=== PATIENT | male | born 1955 | race African-American/Black ===

== ENCOUNTER 2016-06-22 01:35 | Inpatient (IN) | payer MEDICAID ==
[~2016-06-22] VITALS: Ht 172.7 cm; Wt 63.5 kg
[2016-06-22] VITALS (7 sets, daily range): BP systolic 103–138; BP diastolic 71–84
[~2016-06-22 01:35] MED LIST: NKM; RANITIDINE HCL150 MG ORAL
[2016-06-22] MEDS ORDERED: Famotidine 20 MG/ 2ML VIAL IVP ONE (03:30)
[2016-06-22 04:25] LABS: MEAN CORPUSCULAR HEMOGLOBIN 21.2 PG (27.0-31.0); MEAN CORPUSCULAR HGB CONC 31.2 G/DL (32.0-36.0); MEAN CORPUSCULAR VOLUME 68 FL (80-99); MEAN PLATELET VOLUME 6.5 FL (6.5-10.1); PLATELET COUNT 553 K/UL (150-450); RED BLOOD COUNT 2.43 M/UL (4.70-6.10); RED CELL DISTRIBUTION WIDTH 24.3 % (11.6-14.8); WHITE BLOOD COUNT 21.6 K/UL (4.8-10.8)
[2016-06-22 04:42] LABS: ALBUMIN/GLOBULIN RATIO 1.1 (1.0-2.7); CALCIUM 9.2 mg/dL (8.6-10.2); CREATININE 2.1 mg/dL (0.7-1.2); GLOMERULAR FILTRATION RATE 39.3 mL/min (>60); POTASSIUM 3.4 mEQ/L (3.4-4.9); TOTAL PROTEIN 7.3 g/dL (6.6-8.7)
[2016-06-22 05:04] LABS: TROPONIN I < 0.30 ng/mL (<=0.30)
[2016-06-22] MEDS ORDERED: Piperacillin/Tazobactam 3.375 GM in NS 110 ML IVPB ONE (05:30)
[2016-06-22 06:28] LABS: ANISOCYTOSIS 1+; BAND NEUTROPHILS % (MANUAL) 0 % (0-8); BASOPHILS % (MANUAL) 1 % (0-2); EOSINOPHILS % (MANUAL) 0 % (0-3); LYMPHOCYTES % (MANUAL) 8 % (20-45); NEUTROPHILS % (MANUAL) 87 % (45-75); PLATELET ESTIMATE ADEQUATE; PLATELET MORPHOLOGY NORMAL; POIKILOCYTOSIS 1+; TARGET CELLS 2+; TOTAL CELLS COUNTED 100
[2016-06-22] MEDS ORDERED: Morphine Sulfate 2mg/ml Inj IVP PRN (07:00)
[2016-06-22] MEDS ORDERED: Mylanta II UD 30ml ORAL PRN (07:00)
[2016-06-22] MEDS ORDERED: Nitroglycerin Subl 0.4mg tab (Bottle Of 25) SL PRN (07:00)
--- NOTE | 2016-06-22 08:42 | Emergency Room Report ---
History of Present Illness General Chief Complaint: Abdominal Pain Source: Patient Present Illness HPI Patient is a 87-year-old male who presented after increased epigastric burning sensation for 3 days. The patient had gradual onset of symptoms. The patient reported feeling generalized weakness. The patient had had not been having any hematemesis. Patient reports having prior blood transfusion. He states that he had been feeling generalized weakness the patient reported having severe burning sensation. He denies any vomiting or hematemesis at this time. He denied a black or bloody stools. Allergies: Coded Allergies: No Known Allergies (Unverified , 05/07/14) Patient History Past Medical History: see triage record Reviewed Nursing Documentation: PMH: Agreed, PSxH: Agreed Nursing Documentation-PMH Hx Gastrointestinal Problems: Yes - GERD Review of Systems All Other Systems: negative except mentioned in HPI Physical Exam Vital Signs Date Time Temp Pulse Resp B/P Pulse Ox O2 Delivery O2 Flow Rate FiO2 06/22/16 01:58 99.1 100 16 132/77 98 Room Air General Appearance: alert, GCS 15, moderate distress, Chronically Ill Eyes: bilateral eye conjunctivae pale ENT: normal pharynx Neck: full range of motion Respiratory: chest non-tender, lungs clear, normal breath sounds, rhonchi Cardiovascular #1: normal peripheral pulses, regular rate, rhythm Gastrointestinal: normal bowel sounds, non tender, soft, no mass Musculoskeletal: back normal, digits/nails normal Neurologic: alert, oriented x3, responsive, inside sales director III-XII nml as tested Psychiatric: normal inspection, judgement/insight normal Skin: pallor Medical Decision Making Diagnostic Impression: Primary Impression: Severe anemia Additional Impressions: Sepsis Leukocytosis Prostate hypertrophy Renal insufficiency ER Course Patient presented for generalized weakness.Patient presented for generalized weakness. Differential diagnosis included was not limited to anemia, urinary tract infection, electrolyte abnormality, hypothyroidism, myocardial infarction , myasthenia gravis, dehydration, among others. Because of complexity of patient's case laboratory testing and imaging studies were ordered. The EKG interpreted by me showed normal sinus rhythm with a rate of [address] there were no acute ST or T wave changes noted the patient was noted to have septal Q waves. The QT interval was prolonged QTC was 484. The patient was noted to have a markedly anemia with initial hemoglobin of 5.2. The patient noted have white blood count of 21,000. A urinalysis was ordered. CT of the abdomen pelvis read by radiology showed marked thickening of the visualized esophagus stomach was distended with fluid. The contrast was not used due to the patient' s elevated creatinine prostate was mildly enlarged there severe degenerative changes in bilateral hip joints there is scarring in both lungs. 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 The patient was consented for blood. The patient was discussed with O physician and patient is unstable for transfer at this time. Dr. Kessler was contacted for inpatient management due to complexity of medical condition. The patient was given IV Pepcid and GI cocktail. Laboratory Tests Test 06/22/16 04:12 06/22/16 05:39 White Blood Count 21.6 K/UL (4.8-10.8) H Red Blood Count 2.43 M/UL (4.70-6.10) L Hemoglobin 5.2 G/DL (14.2-18.0) *L Hematocrit 16.5 % (42.0-52.0) L Mean Corpuscular Volume 68 FL (80-99) L Mean Corpuscular Hemoglobin 21.2 PG (27.0-31.0) L Mean Corpuscular Hemoglobin Concent 31.2 G/DL (32.0-36.0) L Red Cell Distribution Width 24.3 % (11.6-14.8) H Platelet Count 553 K/UL (150-450) H Mean Platelet Volume 6.5 FL (6.5-10.1) Neutrophils (%) (Auto) % (45.0-75.0) Lymphocytes (%) (Auto) % (20.0-45.0) Monocytes (%) (Auto) % (1.0-10.0) Eosinophils (%) (Auto) % (0.0-3.0) Basophils (%) (Auto) % (0.0-2.0) Differential Total Cells Counted 100 Neutrophils % (Manual) 87 % (45-75) H Lymphocytes % (Manual) 8 % (20-45) L Monocytes % (Manual) 4 % (1-10) Eosinophils % (Manual) 0 % (0-3) Basophils % (Manual) 1 % (0-2) Band Neutrophils 0 % (0-8) Platelet Estimate Adequate Platelet Morphology Normal Poikilocytosis 1+ Anisocytosis 1+ Target Cells 2+ Sodium Level 140 mEQ/L (135-145) Potassium Level 3.4 mEQ/L (3.4-4.9) Chloride Level 95 mEQ/L (98-107) L Carbon Dioxide Level 26 mEQ/L (20-30) Anion Gap 19 (5-15) H Blood Urea Nitrogen 23 mg/dL (7-23) Creatinine 2.1 mg/dL (0.7-1.2) H Estimate Glomerular Filtration Rate 39.3 mL/min (>60) Glucose Level 123 mg/dL (74-106) H Calcium Level 9.2 mg/dL (8.6-10.2) Total Bilirubin 0.9 mg/dL (0.0-1.2) Aspartate Amino Transferase (AST) 14 U/L (5-40) Alanine Aminotransferase (ALT) 8 U/L (3-41) Alkaline Phosphatase 100 U/L (40-129) Troponin I < 0.30 ng/mL (<=0.30) Total Protein 7.3 g/dL (6.6-8.7) Albumin 3.9 g/dL (3.5-5.2) Globulin 3.4 g/dL Albumin/Globulin Ratio 1.1 (1.0-2.7) Lipase 17 U/L (< 60) Serum Alcohol < 10 mg/dL Lactic Acid Level 1.30 mmol/L (0.66-2.22) EKG Diagnostic Results Rate: normal Rhythm: NSR - 92 ST Segments: no acute changes Rhythm Strip Diag. Results EP Interpretation: yes Rhythm: NSR, no PVC's, no ectopy Chest X-Ray Diagnostic Results Findings: no effusion, no pneumothorax, other - right middle lobe infiltrae Number of Views: 1 Last Vital Signs Date Time Temp Pulse Resp B/P Pulse Ox O2 Delivery O2 Flow Rate FiO2 06/22/16 07:15 98.4 92 18 130/82 100 Room Air Status: unchanged Disposition: ADMITTED INPATIENT Condition: Serious Referrals: [facility],REFERRING (PCP) Fam Plummer Jun 22, 2016 08:42
[2016-06-22] MEDS ORDERED: Heparin 5000 units/ml inj SUBQ SCH (09:00)
[2016-06-22] MEDS ORDERED: Zosyn 3.375gm inj ONE (10:39)
[2016-06-22 13:03] LABS: MEAN CORPUSCULAR HEMOGLOBIN 24.4 PG (27.0-31.0); MEAN CORPUSCULAR HGB CONC 32.7 G/DL (32.0-36.0); MEAN CORPUSCULAR VOLUME 75 FL (80-99); MEAN PLATELET VOLUME 6.1 FL (6.5-10.1); PLATELET COUNT 463 K/UL (150-450); RED BLOOD COUNT 3.09 M/UL (4.70-6.10); RED CELL DISTRIBUTION WIDTH 22.9 % (11.6-14.8)
--- NOTE | 2016-06-22 13:12 | Consultation ---
Consult Note Consult Note IO Dic # [id number] LOLA LO M.D. Jun 22, 2016 13:12
[2016-06-22 13:15] LABS: WHITE BLOOD COUNT 22.6 K/UL (4.8-10.8)
--- NOTE | 2016-06-22 13:19 | GI Initial Consult Note ---
History of Present Illness General Date patient seen: Jun 22, 2016 Time patient seen: 13:11 Reason for Hospitalization: Abdominal Pain Referring physician: DILIP FIELDS Reason for Consultation: ABDOMINAL PAIN Present Illness HPI Patient is a 61-year-old male who presented after increased epigastric burning sensation for 3 days. The patient had gradual onset of symptoms. The patient reported feeling generalized weakness. The patient had had not been having any hematemesis. Patient reports having prior blood transfusion. He states that he had been feeling generalized weakness the patient reported having severe burning sensation. He denies any vomiting or hematemesis at this time. He denied a black or bloody stools. GI CONSULT: HPI as noted above. GI consulted for epigastric pain x 3 days. Pt seen on floor, awake A&Ox4 c/o hunger at this time. Denies any abdominal pain, non tender to touch. According to the patient, he originally had a burning sensation directed to the epigastric area which he denies at this time. Denies any N/V or diarrhea. Pt is ambulatory and has periods of agitation. Pt states he' had a colonoscopy at [facility] approximately a month ago , but does not recall having an EGD. He presents today with severe anemia Hgb 5.2, leukocytosis, and elevated creatinine. Home Meds Active Scripts Ranitidine Hcl* (ZANTAC*) 150 Mg Tablet, 150 MG ORAL TWICE A DAY, #30 TAB Prov:CARMEN GARCIA M.D. 05/07/14 Reported Medications No Known Medications* (NKM - No Known Medications*) ., 0 ., 0 Refills 05/05/16 Med list reviewed/reconciled: Yes Allergies: Coded Allergies: No Known Allergies (Unverified , 05/07/14) Patient History History Provided By: Patient, Medical Record PMH Narrative Hx Gastrointestinal Problems: Yes - GERD denies any other medical history Social History: Denies: alcohol use, drug use, other, smoking Review of Systems All Other Systems: negative except mentioned in HPI Physical Exam Vital Signs Date Time Temp Pulse Resp B/P Pulse Ox O2 Delivery O2 Flow Rate FiO2 06/22/16 01:58 99.1 100 16 132/77 98 Room Air Sp02 EP Interpretation: reviewed Labs Laboratory Tests Test 06/22/16 04:12 06/22/16 05:39 1/31/17 12:55 White Blood Count 21.6 K/UL (4.8-10.8) H Pending Red Blood Count 2.43 M/UL (4.70-6.10) L Pending Hemoglobin 5.2 G/DL (14.2-18.0) *L Pending Hematocrit 16.5 % (42.0-52.0) L Pending Mean Corpuscular Volume 68 FL (80-99) L Pending Mean Corpuscular Hemoglobin 21.2 PG (27.0-31.0) L Pending Mean Corpuscular Hemoglobin Concent 31.2 G/DL (32.0-36.0) L Pending Red Cell Distribution Width 24.3 % (11.6-14.8) H Pending Platelet Count 553 K/UL (150-450) H Pending Mean Platelet Volume 6.5 FL (6.5-10.1) Pending Neutrophils (%) (Auto) % (45.0-75.0) Pending Lymphocytes (%) (Auto) % (20.0-45.0) Pending Monocytes (%) (Auto) % (1.0-10.0) Pending Eosinophils (%) (Auto) % (0.0-3.0) Pending Basophils (%) (Auto) % (0.0-2.0) Pending Differential Total Cells Counted 100 Neutrophils % (Manual) 87 % (45-75) H Lymphocytes % (Manual) 8 % (20-45) L Monocytes % (Manual) 4 % (1-10) Eosinophils % (Manual) 0 % (0-3) Basophils % (Manual) 1 % (0-2) Band Neutrophils 0 % (0-8) Platelet Estimate Adequate Platelet Morphology Normal Poikilocytosis 1+ Anisocytosis 1+ Target Cells 2+ Sodium Level 140 mEQ/L (135-145) Potassium Level 3.4 mEQ/L (3.4-4.9) Chloride Level 95 mEQ/L (98-107) L Carbon Dioxide Level 26 mEQ/L (20-30) Anion Gap 19 (5-15) H Blood Urea Nitrogen 23 mg/dL (7-23) Creatinine 2.1 mg/dL (0.7-1.2) H Estimat Glomerular Filtration Rate 39.3 mL/min (>60) Glucose Level 123 mg/dL (74-106) H Calcium Level 9.2 mg/dL (8.6-10.2) Total Bilirubin 0.9 mg/dL (0.0-1.2) Aspartate Amino Transf (AST/SGOT) 14 U/L (5-40) Alanine Aminotransferase (ALT/SGPT) 8 U/L (3-41) Alkaline Phosphatase 100 U/L (40-129) Troponin I < 0.30 ng/mL (<=0.30) Total Protein 7.3 g/dL (6.6-8.7) Albumin 3.9 g/dL (3.5-5.2) Globulin 3.4 g/dL Albumin/Globulin Ratio 1.1 (1.0-2.7) Lipase 17 U/L (< 60) Serum Alcohol < 10 mg/dL Lactic Acid Level 1.30 mmol/L (0.66-2.22) General Appearance: well appearing, no apparent distress, alert, thin Head: normocephalic EENT: normal ENT inspection Neck: full range of motion Respiratory: normal breath sounds, no respiratory distress Cardiovascular: normal rate Gastrointestinal: normal inspection, non tender, soft, normal bowel sounds Genitourinary: no CVA tenderness Neurologic: normal inspection, alert, oriented x3, responsive Psychiatric: normal inspection, judgement/insight normal, memory normal Skin: normal inspection, normal color, no rash, warm/dry Lymphatic: normal inspection, no adenopathy Current Medications Current Medications Medications (Trade) Dose Ordered Sig/Jevon Route PRN Reason Start Time Stop Time Status Last Admin Dose Admin Acetaminophen (Tylenol) 650 mg Q4H PRN ORAL T>100.5 06/22/16 07:00 07/22/16 06:59 Al Hydroxide/Mg Hydroxide (Mylanta II) 30 ml Q6H PRN ORAL dyspepsia 06/22/16 07:00 07/22/16 06:59 Dextrose STAT PRN IV Hypoglycemia 06/22/16 07:00 07/22/16 06:59 Dextrose/Sodium Chloride (D5 0.45% NS) 1,000 ml @ 75 mls/hr [id number] IV 06/22/16 10:00 07/22/16 09:59 Diphenhydramine HCl (Benadryl) 25 mg Q6H PRN ORAL Itching/Pruritis 06/22/16 07:00 07/22/16 06:59 Heparin Sodium (Porcine) (Heparin 5000 units/ml) 5,000 units EVERY 12 HOURS SUBQ 06/22/16 09:00 07/22/16 08:59 Morphine Sulfate (Morphine Sulfate) 2 mg Q4H PRN IVP Severe Pain (Pain Scale 7-10) 06/22/16 07:00 06/29/16 06:59 Nitroglycerin (Ntg) 0.4 mg Q5M X 3 DOSES PRN SL Prn Chest Pain 06/22/16 07:00 07/22/16 06:59 Ondansetron HCl (Zofran) 4 mg Q6H PRN IVP Nausea & Vomiting 06/22/16 07:00 07/22/16 06:59 Piperacillin Sod/ Tazobactam Sod/ Dextrose (Zosyn/D5W) 110 ml @ 27.5 mls/hr EVERY 8 HOURS IVPB 06/22/16 14:00 06/29/16 13:59 Polyethylene Glycol (Miralax) 17 gm HSPRN PRN ORAL Constipation 06/22/16 21:00 07/22/16 20:59 Temazepam (Restoril) 15 mg HSPRN PRN ORAL Insomnia 06/22/16 21:00 06/29/16 20:59 GI: Plan Problems: (1) GERD (gastroesophageal reflux disease) (2) Gastritis (3) Anemia (4) Severe anemia (5) Leukocytosis Plan pt scheduled for EGD tomorrow to evaluate anemia - regular diet now, NPO @ [facility] anemia work up OB stool uncollected monitor H&H, transfuse prn ppi + H2 fu labs Discussed with Dr. Umanzor. Thank you for referring this patient, we will follow. Maria A Zheng N.P. Jun 22, 2016 13:19
[2016-06-22 13:50] LABS: LYMPHOCYTES % (MANUAL) 5 % (20-45); NEUTROPHILS % (MANUAL) 87 % (45-75); NUCLEATED RED BLOOD CELLS 2 /100 WBC; TOTAL CELLS COUNTED 100
[2016-06-22 13:51] LABS: ANISOCYTOSIS 2+; BAND NEUTROPHILS % (MANUAL) 0 % (0-8); BASOPHILS % (MANUAL) 0 % (0-2); EOSINOPHILS % (MANUAL) 0 % (0-3); PLATELET ESTIMATE INCREASED; PLATELET MORPHOLOGY NORMAL
[2016-06-22 13:52] LABS: HYPOCHROMASIA 2+
[2016-06-22 13:56] LABS: TARGET CELLS OCCASIONAL
[2016-06-22] MEDS ORDERED: Piperacillin/Tazobactam 3.375 GM in NS 110 ML IVPB SCH (14:00)
[2016-06-22] MEDS: D5 1/2NS 1,000 ML IV SCH ×2 (14:13→23:20)
[2016-06-22] MEDS: Piperacillin/Tazobactam 3.375 GM in D5W 110 ML IVPB SCH ×2 (14:13→21:21)
--- NOTE | 2016-06-22 14:55 | History and Physical ---
History of Present Illness General Date patient seen: Jun 22, 2016 Reason for Hospitalization: Abdominal Pain Present Illness HPI 87-year-old male with hx of anemia, and recent blood transfusion presented with CC of generalized weakness and increased epigastric burning sensation for 3 days. He had some work -up done a few weeks ago at [facility]. But he doens't know any results. Allergies: Coded Allergies: No Known Allergies (Unverified , 05/07/14) Medication History Scheduled No Known Medications* (NKM - No Known Medications*), 0 ., (Reported) Ranitidine Hcl* (Zantac*), 150 MG ORAL TWICE A DAY Patient History Healthcare decision maker Resuscitation status Advanced Directive on File Past Medical/Surgical History Past Medical/Surgical History: (1) Gastritis (2) Prostate hypertrophy (3) Renal insufficiency Review of Systems All Other Systems: negative except mentioned in HPI Physical Exam General Appearance: cachetic Lines, tubes and drains: peripheral, central line Neck: non-tender, normal alignment Respiratory/Chest: chest wall non-tender, lungs clear Cardiovascular/Chest: normal peripheral pulses, normal rate Abdomen: normal bowel sounds Genitourinary/Rectal: normal genital exam Last 24 Hour Vital Signs Date Time Temp Pulse Resp B/P Pulse Ox O2 Delivery O2 Flow Rate FiO2 06/22/16 11:28 98.4 83 16 138/82 100 Room Air 06/22/16 10:22 98.4 83 16 138/82 100 Room Air 06/22/16 07:15 98.4 92 18 130/82 100 Room Air 06/22/16 06:50 98.7 95 18 129/84 99 Room Air 06/22/16 06:35 99.1 93 16 134/78 100 Room Air 06/22/16 04:15 98.7 90 16 135/78 99 Room Air 06/22/16 01:58 99.1 100 16 132/77 98 Room Air Intake and Output 06/21/16 06/22/16 19:00 07:00 Output Total 0 ml Balance 0 ml Output Urine Total 0 ml Laboratory Tests Test 06/22/16 04:12 06/22/16 05:39 06/22/16 12:55 White Blood Count 21.6 K/UL (4.8-10.8) H 22.6 K/UL (4.8-10.8) *H Red Blood Count 2.43 M/UL (4.70-6.10) L 3.09 M/UL (4.70-6.10) L Hemoglobin 5.2 G/DL (14.2-18.0) *L 7.5 G/DL (14.2-18.0) #L Hematocrit 16.5 % (42.0-52.0) L 23.1 % (42.0-52.0) #L Mean Corpuscular Volume 68 FL (80-99) L 75 FL (80-99) #L Mean Corpuscular Hemoglobin 21.2 PG (27.0-31.0) L 24.4 PG (27.0-31.0) L Mean Corpuscular Hemoglobin Concent 31.2 G/DL (32.0-36.0) L 32.7 G/DL (32.0-36.0) Red Cell Distribution Width 24.3 % (11.6-14.8) H 22.9 % (11.6-14.8) H Platelet Count 553 K/UL (150-450) H 463 K/UL (150-450) H Mean Platelet Volume 6.5 FL (6.5-10.1) 6.1 FL (6.5-10.1) L Neutrophils (%) (Auto) % (45.0-75.0) % (45.0-75.0) Lymphocytes (%) (Auto) % (20.0-45.0) % (20.0-45.0) Monocytes (%) (Auto) % (1.0-10.0) % (1.0-10.0) Eosinophils (%) (Auto) % (0.0-3.0) % (0.0-3.0) Basophils (%) (Auto) % (0.0-2.0) % (0.0-2.0) Differential Total Cells Counted 100 100 Neutrophils % (Manual) 87 % (45-75) H 87 % (45-75) H Lymphocytes % (Manual) 8 % (20-45) L 5 % (20-45) L Monocytes % (Manual) 4 % (1-10) 8 % (1-10) Eosinophils % (Manual) 0 % (0-3) 0 % (0-3) Basophils % (Manual) 1 % (0-2) 0 % (0-2) Band Neutrophils 0 % (0-8) 0 % (0-8) Platelet Estimate Adequate Increased H Platelet Morphology Normal Normal Poikilocytosis 1+ Anisocytosis 1+ 2+ Target Cells 2+ Occasional Sodium Level 140 mEQ/L (135-145) Potassium Level 3.4 mEQ/L (3.4-4.9) Chloride Level 95 mEQ/L (98-107) L Carbon Dioxide Level 26 mEQ/L (20-30) Anion Gap 19 (5-15) H Blood Urea Nitrogen 23 mg/dL (7-23) Creatinine 2.1 mg/dL (0.7-1.2) H Estimat Glomerular Filtration Rate 39.3 mL/min (>60) Glucose Level 123 mg/dL (74-106) H Calcium Level 9.2 mg/dL (8.6-10.2) Total Bilirubin 0.9 mg/dL (0.0-1.2) Aspartate Amino Transf (AST/SGOT) 14 U/L (5-40) Alanine Aminotransferase (ALT/SGPT) 8 U/L (3-41) Alkaline Phosphatase 100 U/L (40-129) Troponin I < 0.30 ng/mL (<=0.30) Total Protein 7.3 g/dL (6.6-8.7) Albumin 3.9 g/dL (3.5-5.2) Globulin 3.4 g/dL Albumin/Globulin Ratio 1.1 (1.0-2.7) Lipase 17 U/L (< 60) Serum Alcohol < 10 mg/dL Lactic Acid Level 1.30 mmol/L (0.66-2.22) Nucleated Red Blood Cells 2 /100 WBC Hypochromasia 2+ Height (Feet): 5 Height (Inches): 9.00 Weight (Pounds): 140 Medications Current Medications Medications (Trade) Dose Ordered Sig/Jevon Route PRN Reason Start Time Stop Time Status Last Admin Dose Admin Acetaminophen (Tylenol) 650 mg Q4H PRN ORAL T>100.5 06/22/16 07:00 07/22/16 06:59 Al Hydroxide/Mg Hydroxide (Mylanta II) 30 ml Q6H PRN ORAL dyspepsia 06/22/16 07:00 07/22/16 06:59 Dextrose STAT PRN IV Hypoglycemia 06/22/16 07:00 07/22/16 06:59 Dextrose/Sodium Chloride (D5 0.45% NS) 1,000 ml @ 75 mls/hr [id number] IV 06/22/16 10:00 07/22/16 09:59 06/22/16 14:13 Diphenhydramine HCl (Benadryl) 25 mg Q6H PRN ORAL Itching/Pruritis 06/22/16 07:00 07/22/16 06:59 Famotidine (Pepcid I.v.) 20 mg BEDTIME IVP 06/22/16 21:00 07/22/16 20:59 Heparin Sodium (Porcine) (Heparin 5000 units/ml) 5,000 units EVERY 12 HOURS SUBQ 06/22/16 09:00 07/22/16 08:59 Morphine Sulfate (Morphine Sulfate) 2 mg Q4H PRN IVP Severe Pain (Pain Scale 7-10) 06/22/16 07:00 06/29/16 06:59 Nitroglycerin (Ntg) 0.4 mg Q5M X 3 DOSES PRN SL Prn Chest Pain 06/22/16 07:00 07/22/16 06:59 Ondansetron HCl (Zofran) 4 mg Q6H PRN IVP Nausea & Vomiting 06/22/16 07:00 07/22/16 06:59 Pantoprazole (Protonix) 40 mg DAILY IVP 06/23/16 09:00 07/23/16 08:59 Piperacillin Sod/ Tazobactam Sod/ Dextrose (Zosyn/D5W) 110 ml @ 27.5 mls/hr EVERY 8 HOURS IVPB 06/22/16 14:00 06/29/16 13:59 06/22/16 14:13 Polyethylene Glycol (Miralax) 17 gm HSPRN PRN ORAL Constipation 06/22/16 21:00 07/22/16 20:59 Temazepam (Restoril) 15 mg HSPRN PRN ORAL Insomnia 06/22/16 21:00 06/29/16 20:59 Assessment/Plan Problem List: (1) Severe anemia ICD Codes: D64.9 - Anemia, unspecified SNOMED: 291011558 (2) Prostate hypertrophy ICD Codes: N40.0 - Benign prostatic hyperplasia without lower urinary tract symptoms SNOMED: 828946320, 446078844 (3) Renal insufficiency ICD Codes: N28.9 - Disorder of kidney and ureter, unspecified SNOMED: 161133622, 349780687 (4) Leukocytosis ICD Codes: D72.829 - Elevated white blood cell count, unspecified SNOMED: 168563056, 829059551 (5) Protein-calorie malnutrition, severe ICD Codes: E43 - Unspecified severe protein-calorie malnutrition SNOMED: 181796510 (6) Gastritis ICD Codes: K29.70 - Gastritis, unspecified, without bleeding SNOMED: 1166641 Assessment/Plan anemia w/u GI w/u try get the records from [facility] for guac blood smear. check PSA; DILIP RASHEED Jun 22, 2016 14:55
[2016-06-22 15:29] LABS: PATH BLOOD SMEAR/OMC SENT TO PATHOLOGIST
[2016-06-22 15:38] LABS: INR 1.1 (0.9-1.1); PROTHROMBIN TIME 10.7 SEC (9.30-11.50)
[2016-06-22 15:59] LABS: ALANINE AMINOTRANSFERASE 6 U/L (3-41); ALBUMIN/GLOBULIN RATIO 1.2 (1.0-2.7); ANION GAP 13 (5-15); ASPARTATE AMINO TRANSFERASE 13 U/L (5-40); CALCIUM 8.8 mg/dL (8.6-10.2); CARBON DIOXIDE 27 mEQ/L (20-30); CHLORIDE 98 mEQ/L (98-107); CREATININE 1.7 mg/dL (0.7-1.2); GLOMERULAR FILTRATION RATE 50.1 mL/min (>60); HEMOLYSIS 0; MAGNESIUM 2.1 mg/dL (1.7-2.5); PHOSPHORUS 4.3 mg/dL (2.5-4.8); POTASSIUM 3.8 mEQ/L (3.4-4.9); SODIUM 138 mEQ/L (135-145); TOTAL PROTEIN 6.9 g/dL (6.6-8.7)
--- NOTE | 2016-06-22 16:45 | Diagnostic Imaging Report ---
Indication: Abnormal renal function tests Technique: Grayscale and duplex images of the kidneys, retroperitoneum, and bladder were obtained. Comparison:Reference made to abdomen pelvis CT of earlier the same day Findings: Right kidney measures 10.8 cm in length. Left kidney measures 9.3 cm in length. Both kidneys demonstrate normal echogenicity. No hydronephrosis. There are bilateral small renal cysts, in retrospect visible although subtle on prior CT. An echogenic focus is seen in the right renal upper. Etiology uncertain as either a calcification or an angiomyolipoma are evident on CT. Normal inferior vena cava. Bladder is normal. Impression: Negative for hydronephrosis Small bilateral renal cysts. Right upper pole echogenic focus, of doubtful significance as no corresponding abnormality is seen on CT
[2016-06-22 19:05] LABS: RETICULOCYTE COUNT 2.1 % (0.0-2.0)
[2016-06-22 19:21] LABS: APPEARANCE,URINE CLEAR; KETONES,URINE NEGATIVE (NEGATIVE); LEUKOCYTE ESTERASE ,URINE NEGATIVE (NEGATIVE); NITRITE,URINE NEGATIVE (NEGATIVE); PH,URINE 6.5 (4.5-8.0); PROTEIN,URINE 1+ (NEGATIVE); UROBILINOGEN,URINE 1 MG/DL (0.0-1.0)
[2016-06-22 19:32] LABS: RBC,URINE 0-2 /HPF (0 - 0)
[2016-06-22 19:33] LABS: WBC,URINE 0-2 /HPF (0 - 0)
[2016-06-22] MEDS ORDERED: Famotidine 20 MG/ 2ML VIAL IVP SCH (21:00)
[2016-06-22] MEDS ORDERED: Miralax 17gm pkt ORAL PRN (21:00)
--- NOTE | 2016-06-22 21:07 | Consultation ---
DATE OF CONSULTATION: INFECTIOUS DISEASE CONSULTATION CONSULTING PHYSICIAN: Juma Dean M.D. REFERRING PHYSICIAN: Briseyda Kessler M.D. REASON FOR CONSULTATION: Evaluation of patient for possible sepsis, leukocytosis, and antibiotic management. HISTORY OF PRESENT ILLNESS: The patient is a 61-year-old male who came to the hospital due to upper abdominal pain. The patient had a CT scan, the result is pending. The patient was found to have leukocytosis of 21,000. An Infectious Disease consultation has been requested for further evaluation of the patient. PAST MEDICAL HISTORY: Significant for GERD. ALLERGIES: No known drug allergies. MEDICATIONS: The patient has been started on IV Zosyn. SOCIAL HISTORY: smoking cigarettes. The patient denies alcohol alcohol or drug abuse. FAMILY HISTORY: Noncontributory. PHYSICAL EXAMINATION: VITAL SIGNS: Temperature 98.4 degrees, blood pressure 138/82, pulse 83, and respiratory rate 16. HEENT: Mild pale conjunctivae. No icterus. NECK: No lymphadenopathy. CHEST: Coarse breathing sounds. HEART: S1 and S2. ABDOMEN: Soft. On exam, no tenderness. . NEUROLOGIC: Awake and alert. LABORATORY AND DIAGNOSTIC DATA: White blood cells 21, hemoglobin 5.2, and platelets 553,000. Urinalysis unremarkable. BUN 23 and creatinine 2.1. ALT, AST and alkaline phosphatase within normal range. Chest x-ray and CT scan of the abdomen is pending. ASSESSMENT: The patient is a 61-year-old male with multiple medical problems who came to the hospital with abdominal pain. The patient contributes this to the episode of gastroesophageal reflux disease. The patient's amylase is in normal range, however, the patient had leukocytosis. In the review of the laboratories from over a months ago, the patient has white blood cells in the range of 14,000 to 19,000. PLAN: 1. We will continue the patient on IV Zosyn. 2. Monitor CBC. 3. Monitor BMP. 4. Monitor of blood culture. 5. We will follow CT and chest x-ray report. 6. We recommend an Hematology/Oncology evaluation for anemia, leukocytosis and thrombocytosis. Thank you, Dr. Kessler, for allowing me to participate in the care of this patient. I will follow the patient with you during this hospitalization. Juma Dean M.D. DR: ALIYAH JOB#: [id number] CC:
[2016-06-23] VITALS (11 sets, daily range): BP systolic 111–141; BP diastolic 75–95
[2016-06-23] MEDS: Piperacillin/Tazobactam 3.375 GM in D5W 110 ML IVPB SCH (05:46)
[2016-06-23 08:11] LABS: MEAN CORPUSCULAR HEMOGLOBIN 25.6 PG (27.0-31.0); MEAN CORPUSCULAR HGB CONC 33.9 G/DL (32.0-36.0); MEAN CORPUSCULAR VOLUME 76 FL (80-99); MEAN PLATELET VOLUME 6.2 FL (6.5-10.1); PLATELET COUNT 360 K/UL (150-450); RED BLOOD COUNT 2.89 M/UL (4.70-6.10); RED CELL DISTRIBUTION WIDTH 22.6 % (11.6-14.8); WHITE BLOOD COUNT 21.7 K/UL (4.8-10.8)
[2016-06-23 08:43] LABS: ANION GAP 12 (5-15); CARBON DIOXIDE 24 mEQ/L (20-30); CHLORIDE 99 mEQ/L (98-107); CREATININE 1.3 mg/dL (0.7-1.2); POTASSIUM 3.5 mEQ/L (3.4-4.9); SODIUM 135 mEQ/L (135-145)
[2016-06-23 08:44] LABS: ALANINE AMINOTRANSFERASE 5 U/L (3-41); ALBUMIN/GLOBULIN RATIO 1.2 (1.0-2.7); AMYLASE 49 U/L (10-110); ANISOCYTOSIS 2+; ASPARTATE AMINO TRANSFERASE 10 U/L (5-40); BAND NEUTROPHILS % (MANUAL) 0 % (0-8); BASOPHILS % (MANUAL) 0 % (0-2); CALCIUM 8.3 mg/dL (8.6-10.2); EOSINOPHILS % (MANUAL) 3 % (0-3); GLOMERULAR FILTRATION RATE > 60 mL/min (>60); HEMOLYSIS 0; HYPOCHROMASIA 2+; LIPASE 24 U/L (< 60); LYMPHOCYTES % (MANUAL) 3 % (20-45); NEUTROPHILS % (MANUAL) 88 % (45-75); NUCLEATED RED BLOOD CELLS 4 /100 WBC; PLATELET ESTIMATE ADEQUATE; PLATELET MORPHOLOGY NORMAL; TOTAL CELLS COUNTED 100; TOTAL PROTEIN 5.8 g/dL (6.6-8.7)
[2016-06-23] MEDS ORDERED: Pantoprazole Inj IVP SCH (09:00)
--- NOTE | 2016-06-23 09:27 | Diagnostic Imaging Report ---
Indication: SOB Technique: One view of the chest Comparison: none Findings: The heart is enlarged. Lungs and pleural space are clear. Aorta is elongated and tortuous. Upper mediastinum is unremarkable Impression: Cardiomegaly. No acute process
--- NOTE | 2016-06-23 09:29 | Diagnostic Imaging Report ---
Indication: Abdominal pain Technique: Spiral acquisitions obtained through the abdomen and pelvis. No oral contrast utilized, per emergency room physician request No IV contrast utilized, per referring physician request.. Multiplanar reconstructions were generated. Total dose length product 425 mGycm. CTDIvol(s) mGy Comparison: None Findings: Lack of oral contrast severely limits assessment of the GI tract. In addition, asthenic body habitus results in a paucity of abdominal fat, which in addition to the lack of IV contrast further limits intrinsic soft tissue contrast. There is also soft tissue edema, further limiting intrinsic soft tissue contrast What may be a normal appendix is visualized. In any case, there is no evidence of acute appendicitis. No evidence of diverticulosis or diverticulitis. Small bowel loops are upper limits of normal caliber, fluid-filled. The stomach is distended and fluid-filled. There is a moderate-sized sliding-type hiatal hernia. Possible thickening of the esophageal wall. No free or loculated intraperitoneal air or fluid is evident. Lack of IV contrast limits assessment of the solid organs. The liver demonstrates in segment 2 a 2 cm cyst. The gallbladder is nondistended. Bile ducts, are unremarkable. The spleen is unusually small, otherwise unremarkable. The kidneys are grossly unremarkable. No mesenteric or retroperitoneal mass or adenopathy. The prostate is enlarged, measuring 5.6 cm transverse by 3.8 cm AP. The lung bases demonstrate some scarring or atelectasis on the left, as well as bullous changes and generalized pulmonary hyperinflation. There is some scarring posterior medially on the right as well. The bones demonstrate bilateral L5 spondylolysis, L5 on S1 grade 1-2 spondylolisthesis and secondary degenerative change. There are degenerative changes of both hips Impression: Very limited exam, as described Somewhat prominent fluid-filled small bowel loops, could indicate enteritis changes. Nonspecific gastric distention with fluid Generalized mild soft tissue edema No definite acute process otherwise Prostatomegaly Pulmonary parenchymal scarring and COPD changes Bilateral L5 spondylolysis, L5 on S1 spondylolisthesis with secondary degenerative change Moderate-sized sliding-type hiatal hernia. There may be thickening of the esophageal wall Incidental finding of left lobe liver cyst Bilateral hip degenerative changes This agrees with the preliminary interpretation provided overnight by [facility] teleradiology service. The CT scanner at [facility] is accredited by the [employer] and the scans are performed using protocols designed to limit radiation exposure to as low as reasonably achievable to attain images of sufficient resolution adequate for diagnostic evaluation.
--- NOTE | 2016-06-23 10:28 | Pre-Procedure Note/Attestation ---
Pre-Procedure Note/Attestation Complete Prior to Procedure Planned Procedure: not applicable Procedure Narrative: egd Indications for Procedure Pre-Operative Diagnosis: anemia Attestation I attest that I discussed the nature of the procedure; its benefits; risks and complications; and alternatives (and the risks and benefits of such alternatives ), prior to the procedure, with the patient (or the patient's legal tour sales representative). I attest that, if there was a reasonable possibility of needing a blood transfusion, the patient (or the patient's legal tour sales representative) was given the [facility] standardized written summary, pursuant to the [place] Blood Safety Act ([place] Health and Safety Code # 1645, as amended). I attest that I re-evaluated the patient just prior to the surgery and that there has been no change in the patient's H&P, except as documented below: ABHILASH CASTELLON Jun 23, 2016 10:28
[2016-06-23] MEDS ORDERED: Propofol 10mg/ml 20ml IV ONE (10:30)
[2016-06-23] MEDS ORDERED: LR 1000ml ONE (10:30)
[2016-06-23] MEDS ORDERED: NS 550ML IV ONE (10:42)
--- NOTE | 2016-06-23 10:54 | Endoscopy Procedure Note ---
Endoscopy Procedure Note Indication for Procedure: anemia Procedures Performed: EGD Operative Findings/Diagnosis: reynaldo DU Specimen: yes Pt Tolerated Procedure Well: Yes Estimated Blood Loss: none Anesthesiologist: khloe Anesthesia: MAC Implant(s) used?: No 50 yrs or older w/o bx or poly: Not Applicable 10yrs. F/U not recommended: Not Applicable ABHILASH CASTELLON Jun 23, 2016 10:54
--- NOTE | 2016-06-23 11:59 | Pulmonology Progress Note ---
Assessment/Plan Problems: (1) Severe anemia (2) Prostate hypertrophy (3) Renal insufficiency (4) Leukocytosis (5) Protein-calorie malnutrition, severe (6) Gastritis Assessment/Plan prbc one unit h/h in am f/u bun/creatinine All medications and treatment were review Subjective Interval Events: had endoscopy, showing large gastric ulcer Constitutional: Reports: no symptoms HEENT: Repors: no symptoms Allergies: Coded Allergies: No Known Allergies (Unverified , 05/07/14) Objective Last 24 Hour Vital Signs Date Time Temp Pulse Resp B/P Pulse Ox O2 Delivery O2 Flow Rate FiO2 06/23/16 11:20 98.0 72 18 117/83 96 Room Air 06/23/16 11:15 69 16 111/79 96 Room Air 06/23/16 11:10 68 17 122/78 96 Room Air 06/23/16 11:05 98.3 76 16 114/75 99 Nasal Cannula 3.0 06/23/16 08:15 98.1 78 18 135/87 97 Room Air 06/23/16 04:01 98.2 78 18 130/86 97 Room Air 06/23/16 04:00 79 06/23/16 00:45 98.7 79 128/86 06/23/16 00:00 98.4 86 18 118/81 96 Room Air 06/23/16 00:00 85 06/22/16 20:00 88 06/22/16 20:00 98.1 85 20 127/71 97 Room Air 06/22/16 16:00 99.1 77 18 103/83 98 Room Air 06/22/16 16:00 88 Intake and Output 06/22/16 06/23/16 19:00 07:00 Intake Total 410.0 ml 928.75 ml Output Total 550 ml Balance 410.0 ml 378.75 ml Intake IV Total 410.0 ml 678.75 ml Blood Product 250 ml Output Urine Total 550 ml General Appearance: WD/WN HEENT: normocephalic, atraumatic Respiratory/Chest: chest wall non-tender, lungs clear Cardiovascular: normal peripheral pulses, normal rate Abdomen: normal bowel sounds, soft, non tender Extremities: no cyanosis, no clubbing Skin: no lesions Laboratory Tests 06/22/16 12:55: White Blood Count 22.6*H, Red Blood Count 3.09L, Hemoglobin 7.5#L, Hematocrit 23.1#L, Mean Corpuscular Volume 75#L, Mean Corpuscular Hemoglobin 24.4L, Mean Corpuscular Hemoglobin Concent 32.7, Red Cell Distribution Width 22.9H, Platelet Count 463H, Mean Platelet Volume 6.1L, Neutrophils (%) (Auto) , Lymphocytes (%) (Auto) , Monocytes (%) (Auto) , Eosinophils (%) (Auto) , Basophils (%) (Auto) , Differential Total Cells Counted 100, Neutrophils % ( Manual) 87H, Lymphocytes % (Manual) 5L, Monocytes % (Manual) 8, Eosinophils % ( Manual) 0, Basophils % (Manual) 0, Band Neutrophils 0, Nucleated Red Blood Cells 2, Platelet Estimate IncreasedH, Platelet Morphology Normal, Hypochromasia 2+, Anisocytosis 2+, Target Cells Occasional 06/22/16 14:25: Erythrocyte Sedimentation Rate 62H, Reticulocyte Count 2.1H, Prothrombin Time 10.7, Prothromb Time International Ratio 1.1, Activated Partial Thromboplast Time 24, Sodium Level 138, Potassium Level 3.8, Chloride Level 98, Carbon Dioxide Level 27, Anion Gap 13, Blood Urea Nitrogen 23, Creatinine 1.7H, Estimat Glomerular Filtration Rate 50.1, Glucose Level 81, Plasma/Serum Osmolality [Pending], Uric Acid [Pending], Calcium Level 8.8, Phosphorus Level 4.3, Magnesium Level 2.1, Iron Level [Pending], Unsaturated Iron Binding [ Pending], Total Bilirubin 2.3H, Direct Bilirubin [Pending], Aspartate Amino Transf (AST/SGOT) 13, Alanine Aminotransferase (ALT/SGPT) 6, Alkaline Phosphatase 94, Lactate Dehydrogenase [Pending], Total Creatine Kinase 58, Total Protein 6.9, Albumin 3.8, Globulin 3.1, Albumin/Globulin Ratio 1.2, Carcinoembryonic Antigen [Pending], Vitamin B12 Level [Pending], Folate [Pending ], Thyroid Stimulating Hormone (TSH) [Pending], Free Thyroxine [Pending], Free Triiodothyronine [Pending], Cortisol [Pending] 06/22/16 18:30: Urine Color Yellow, Urine Appearance Clear, Urine pH 6.5, Urine Specific [place] 1.015, Urine Protein 1+H, Urine Glucose (UA) Negative, Urine Ketones Negative, Urine Occult Blood Negative, Urine Nitrite Negative, Urine Bilirubin Negative, Urine Urobilinogen 1H, Urine Leukocyte Esterase Negative, Urine RBC 0- 2H, Urine WBC 0-2, Urine Squamous Epithelial Cells None, Urine Bacteria None, Urine Eosinophils None seen, Urine Osmolality [Pending], Urine Random Sodium [ Pending], Urine Random Chloride [Pending], Urine Potassium Timed [Pending], Urine Opiates Screen Negative, Urine Barbiturates Screen Negative, Phencyclidine (PCP) Screen Negative, Urine Amphetamines Screen Negative, Urine Benzodiazepines Screen Negative, Urine Cocaine Screen PositiveH, Urine Marijuana (THC) Screen Negative 06/23/16 07:05: White Blood Count 21.7H, Red Blood Count 2.89L, Hemoglobin 7.4L, Hematocrit 21.8L, Mean Corpuscular Volume 76L, Mean Corpuscular Hemoglobin 25.6L, Mean Corpuscular Hemoglobin Concent 33.9, Red Cell Distribution Width 22.6H, Platelet Count 360, Mean Platelet Volume 6.2L, Neutrophils (%) (Auto) , Lymphocytes (%) (Auto) , Monocytes (%) (Auto) , Eosinophils (%) (Auto) , Basophils (%) (Auto) , Differential Total Cells Counted 100, Neutrophils % ( Manual) 88H, Lymphocytes % (Manual) 3L, Monocytes % (Manual) 6, Eosinophils % ( Manual) 3, Basophils % (Manual) 0, Band Neutrophils 0, Nucleated Red Blood Cells 4, Platelet Estimate Adequate, Platelet Morphology Normal, Hypochromasia 2 +, Anisocytosis 2+, Activated Partial Thromboplast Time 26, Sodium Level 135, Potassium Level 3.5, Chloride Level 99, Carbon Dioxide Level 24, Anion Gap 12, Blood Urea Nitrogen 19, Creatinine 1.3H, Estimat Glomerular Filtration Rate > 60 , Glucose Level 83, Calcium Level 8.3L, Total Bilirubin 1.5H, Direct Bilirubin [ Pending], Aspartate Amino Transf (AST/SGOT) 10, Alanine Aminotransferase (ALT/ SGPT) 5, Alkaline Phosphatase 89, Total Protein 5.8L, Albumin 3.2L, Globulin 2.6 , Albumin/Globulin Ratio 1.2, Amylase Level 49, Lipase 24 Current Medications Medications (Trade) Dose Ordered Sig/Jevon Route PRN Reason Start Time Stop Time Status Last Admin Dose Admin Acetaminophen (Tylenol) 650 mg Q4H PRN ORAL T>100.5 06/22/16 07:00 07/22/16 06:59 Al Hydroxide/Mg Hydroxide (Mylanta II) 30 ml Q6H PRN ORAL dyspepsia 06/22/16 07:00 07/22/16 06:59 06/22/16 18:25 Dextrose STAT PRN IV Hypoglycemia 06/22/16 07:00 07/22/16 06:59 Dextrose/Sodium Chloride (D5 0.45% NS) 1,000 ml @ 75 mls/hr [id number] IV 06/22/16 10:00 07/22/16 09:59 06/22/16 14:13 Diphenhydramine HCl (Benadryl) 25 mg Q6H PRN ORAL Itching/Pruritis 06/22/16 07:00 07/22/16 06:59 Famotidine (Pepcid I.v.) 20 mg BEDTIME IVP 06/22/16 21:00 07/22/16 20:59 06/22/16 21:21 Morphine Sulfate (Morphine Sulfate) 2 mg Q4H PRN IVP Severe Pain (Pain Scale 7-10) 06/22/16 07:00 06/29/16 06:59 Nitroglycerin (Ntg) 0.4 mg Q5M X 3 DOSES PRN SL Prn Chest Pain 06/22/16 07:00 07/22/16 06:59 Ondansetron HCl (Zofran) 4 mg Q6H PRN IVP Nausea & Vomiting 06/22/16 07:00 07/22/16 06:59 Pantoprazole (Protonix) 40 mg DAILY IVP 06/23/16 09:00 07/23/16 08:59 06/23/16 08:45 Piperacillin Sod/ Tazobactam Sod/ Dextrose (Zosyn/D5W) 110 ml @ 27.5 mls/hr EVERY 8 HOURS IVPB 06/22/16 14:00 06/29/16 13:59 06/23/16 05:46 Polyethylene Glycol (Miralax) 17 gm HSPRN PRN ORAL Constipation 06/22/16 21:00 07/22/16 20:59 Temazepam (Restoril) 15 mg HSPRN PRN ORAL Insomnia 06/22/16 21:00 06/29/16 20:59 DILIP RASHEEDb 1, 2017 11:59
[2016-06-23] MEDS ORDERED: PROTONIX40 MG ORAL (12:01)
[2016-06-23] MEDS ORDERED: Nitroglycerin Subl 0.4mg tab (Bottle Of 25) SL PRN (12:15)
[2016-06-23] MEDS ORDERED: Morphine Sulfate 2mg/ml Inj IVP PRN (13:00)
[2016-06-23] MEDS ORDERED: D5 1/2NS 1,000 ML IV SCH (13:00)
[2016-06-23] MEDS: Mylanta II UD 30ml ORAL PRN ×2 (13:18→20:04)
[2016-06-23 13:53] LABS: BILIRUBIN,DIRECT 0.2 mg/dL (0.1-0.3)
[2016-06-23] MEDS ORDERED: Piperacillin/Tazobactam 3.375 GM in D5W 110 ML IVPB SCH (14:00)
--- NOTE | 2016-06-23 14:20 | Cardiology Report ---
APPROVED REPORT EKG Measurement Heart [id number] Normal sinus rhythm Anterior infarct, age undetermined Abnormal ECG
[2016-06-23 14:48] LABS: LACTATE DEHYDROGENASE 220 U/L (135-230); URIC ACID 4.6 mg/dL (3.0-7.5)
[2016-06-23 15:33] LABS: FREE T3 1.5 pg/mL (2.3-4.2)
[2016-06-23 15:53] LABS: IRON 161 ug/dL (59-158); TOTAL IRON BINDING CAPACITY 406 ug/dL (250-400)
[2016-06-23] MEDS ORDERED: NS 275ml ONE ×2 (20:04)
[2016-06-23] MEDS ORDERED: Tubing IV Secondary IV ONE (20:04)
[2016-06-23] MEDS ORDERED: Tubing Blood Filter IV ONE ×2 (20:04)
[2016-06-23] MEDS ORDERED: Famotidine 20 MG/ 2ML VIAL IVP SCH (21:00)
[2016-06-23] MEDS ORDERED: Miralax 17gm pkt ORAL PRN (21:00)
[2016-06-23 23:48] LABS: BILIRUBIN,DIRECT 0.3 mg/dL (0.1-0.3)
[2016-06-24] MEDS ORDERED: Pantoprazole Inj IVP SCH (09:00)
[2016-06-24 09:26] LABS: CORTISOL LC 18.7 ug/dL (.)
--- NOTE | 2016-06-24 21:07 | Discharge Summary ---
Discharge Summary Hospital Course Date of Admission Jun 22, 2016 at 05:08 Date of Discharge Jun 23, 2016 at 20:05 Admitting Diagnosis SEVERE ANEMIA SYEDA Hampton is a 61 year old male who was admitted on Jun 22, 2016 at 05:08 for Severe Anemia Hospital Course [id number] Discharge Discharge Disposition Patient was discharged to Home (01) Discharge Diagnoses: Karely Roth NP Jun 24, 2016 21:07
--- NOTE | 2016-06-25 02:17 | Discharge Summary 2 SIG ---
DATE OF ADMISSION: 06/22/2016 DATE OF DISCHARGE: 06/23/2016 [facility] NURSE: Jacob Umanzor M.D. BRIEF HOSPITAL COURSE: The patient is a 61-year-old male, who presented to ED complaining of abdominal pain. He has history of anemia and recent blood transfusion, complained of generalized weakness and epigastric burning sensation for three days. On evaluation, was found to have anemia, initial hemoglobin of 5.2. The patient underwent esophagogastroduodenoscopy and findings showed large gastric ulcer. He was given blood transfusion and Protonix. He was eventually discharged home. FINAL DIAGNOSES: 1. Severe acute anemia secondary to GI bleed, status post transfusion. 2. Large gastric ulcer. 3. Prostate hypertrophy. 4. Acute kidney injury. 5. Severe protein-calorie malnutrition. 6. Gastritis. Briseyda Kessler M.D. I have been assigned to dictate discharge summary on this account and I was not involved in the patient's management. Karely Roth N.P. DR: ESTELLA JOB#: [id number] CC: GILMER
--- NOTE | 2016-07-06 12:19 | Procedure Note ---
DATE OF PROCEDURE: 06/23/2016 PROCEDURE: Upper endoscopy with biopsy. SURGEON: Jacob Umanzor M.D. ANESTHESIA: Per Dr. Bauer. INSTRUMENT: Olympus adult flexible upper endoscope. INDICATION: Upper gastrointestinal bleeding. REASON FOR PROCEDURE: The procedure, risks, benefits, and possible consequences, including hemorrhage, aspiration, perforation and infection, and alternative treatments, were explained to the patient/legal guardian by Dr. Jacob Umanzor and the patient/legal guardian understood and accepted these risks. DESCRIPTION OF PROCEDURE: After informed consent was obtained and the patient was adequately sedated, Olympus upper endoscope was advanced from mouth into the second portion of duodenum and retroflexion was performed in the stomach. The patient had evidence of large duodenal ulcer. In the stomach, there was diffuse gastritis. Random biopsies from antrum was obtained to rule out H. pylori infection. The patient also has evidence of [id number] distal esophagitis. No evidence of any hiatal hernia. In the duodenum, there was no adherent clot or visible vessel. The patient tolerated the procedure very well without any complication. SUMMARY OF FINDINGS: 1. Moderate distal esophagitis. 2. Gastritis, status post biopsy. 3. Duodenal ulceration without any adherent clot or visible vessel. RECOMMENDATIONS: 1. Follow biopsy results and treat for Helicobacter pylori if it is positive. 2. Continue on PPI. 3. Start diet and advance as tolerated. Jacob Umanzor M.D. DR: SHEELA JOB#: [id number] CC: GILMER
== END 2016-06-23 20:05 | disposition home or self-care (01) | DRG 663 ==
LOC: EMR 02:58 → 2E 05:08 → EDBEDREQ 07:18 → 2E 10:50 → 4W 06-23 12:23
PROC: 30233N1 Transfusion of Nonautologous Red Blood Cells into Peripheral Vein, Percutaneous Approach (ICD-10-PCS; 2016-06-22)
PROC: 0DB68ZX Excision of Stomach, Via Natural or Artificial Opening Endoscopic, Diagnostic (ICD-10-PCS; principal; 2016-06-23 10:46)
DX: D62 Acute posthemorrhagic anemia (principal); E43 Unspecified severe protein-calorie malnutrition; N17.9 Acute kidney failure, unspecified; N40.0 Benign prostatic hyperplasia without lower urinary tract symptoms; D72.829 Elevated white blood cell count, unspecified; K29.70 Gastritis, unspecified, without bleeding; Z68.21 Body mass index [BMI] 21.0-21.9, adult; K20.8 Other esophagitis; K26.9 Duodenal ulcer, unspecified as acute or chronic, without hemorrhage or perforation
CPT/HCPCS: 36415; 71010; 74176; 76775; 80053; 80300; 80329; 81001; 82150; 82248; 82378; 82436; 82533; 82550; 82607; 82746; 83540; 83550; 83605; 83615; 83690; 83735; 83930; 83935; 84100; 84133; 84300; 84439; 84443; 84481; 84484; 84550; 85007; 85025; 85044; 85060; 85610; 85651; 85730; 86850; 86900; 86901; 86920; 87040; 89050; 93005; 94003; 94150; J2405

== ENCOUNTER 2017-01-11 00:43 | Inpatient (IN) | payer MEDICAID ==
[~2017-01-11] VITALS: Ht 175.3 cm; Wt 68.0 kg
[2017-01-11] VITALS (14 sets, daily range): BP systolic 138–176; BP diastolic 81–116
[~2017-01-11 00:43] MED LIST changes: +PROTONIX40 MG ORAL
[2017-01-11] MEDS ORDERED: HYDROmorphone 1mg/ml Carpuject IVP ONE (01:30)
[2017-01-11] MEDS ORDERED: Famotidine 20 MG/ 2ML VIAL IVP ONE ×2 (01:30→10:00)
[2017-01-11] MEDS ORDERED: Mylanta II UD 30ml ORAL ONE (01:30)
[2017-01-11 01:43] LABS: MEAN CORPUSCULAR HEMOGLOBIN 27.3 PG (27.0-31.0); MEAN CORPUSCULAR HGB CONC 32.3 G/DL (32.0-36.0); MEAN CORPUSCULAR VOLUME 84 FL (80-99); MEAN PLATELET VOLUME 6.7 FL (6.5-10.1); PLATELET COUNT 342 K/UL (150-450); RED BLOOD COUNT 5.33 M/UL (4.70-6.10); RED CELL DISTRIBUTION WIDTH 20.1 % (11.6-14.8); WHITE BLOOD COUNT 19.7 K/UL (4.8-10.8)
[2017-01-11 01:55] LABS: ALANINE AMINOTRANSFERASE 11 U/L (3-41); ALBUMIN/GLOBULIN RATIO 1.2 (1.0-2.7); ALCOHOL < 10 mg/dL; ANION GAP 14 (5-15); ASPARTATE AMINO TRANSFERASE 16 U/L (5-40); CALCIUM 9.4 mg/dL (8.6-10.2); CARBON DIOXIDE 26 mEQ/L (20-30); CHLORIDE 100 mEQ/L (98-107); CREATININE 1.3 mg/dL (0.7-1.2); GLOMERULAR FILTRATION RATE > 60 mL/min (>60); HEMOLYSIS 3; LIPASE 17 U/L (< 60); POTASSIUM 4.4 mEQ/L (3.4-4.9); SODIUM 140 mEQ/L (135-145); TOTAL PROTEIN 7.7 g/dL (6.6-8.7)
[2017-01-11] MEDS ORDERED: Piperacillin/Tazobactam 3.375 GM in NS 110 ML IVPB ONE (02:00)
[2017-01-11] MEDS ORDERED: Zosyn 3.375gm inj ONE (02:09)
[2017-01-11 02:20] LABS: APPEARANCE,URINE CLEAR; KETONES,URINE NEGATIVE (NEGATIVE); LEUKOCYTE ESTERASE ,URINE NEGATIVE (NEGATIVE); NITRITE,URINE NEGATIVE (NEGATIVE); PH,URINE 6 (4.5-8.0); UROBILINOGEN,URINE 1 MG/DL (0.0-1.0)
[2017-01-11 02:28] LABS: PROTEIN,URINE NEGATIVE (NEGATIVE)
[2017-01-11 02:45] LABS: BAND NEUTROPHILS % (MANUAL) 7 % (0-8); BASOPHILS % (MANUAL) 0 % (0-2); EOSINOPHILS % (MANUAL) 0 % (0-3); LYMPHOCYTES % (MANUAL) 6 % (20-45); NEUTROPHILS % (MANUAL) 83 % (45-75); PLATELET ESTIMATE ADEQUATE; PLATELET MORPHOLOGY NORMAL; TOTAL CELLS COUNTED 100
--- NOTE | 2017-01-11 04:03 | Emergency Room Report ---
History of Present Illness General Chief Complaint: Abdominal Pain Source: Patient Present Illness HPI This is a 61-year-old male with a history of esophagitis and duodenal ulcer. He continued to smoke. Also history of cocaine abuse. He had endoscopy by Dr. Umanzor in June 2016 confirming this. He presents with chief complaint of acute onset of epigastric pain. Onset was for the last one to 2 hours. Pain is severe. 10 out of 10. Localized to the epigastric area. No radiation. Has nausea but no vomiting. No diarrhea. Allergies: Coded Allergies: No Known Allergies (Unverified , 05/07/14) Patient History Past Medical History: see triage record, old chart reviewed Past Surgical History: other Pertinent Family History: none Social History: Reports: drug use, smoking Immunizations: other Reviewed Nursing Documentation: PMH: Agreed, PSxH: Agreed Review of Systems Eye: Denies: blurred vision, eye pain ENT: Denies: ear pain, nose congestion, throat swelling Respiratory: Denies: cough, shortness of breath Cardiovascular: Denies: chest pain, palpitations Gastrointestinal: Reports: abdominal pain, Denies: diarrhea, nausea, vomiting Musculoskeletal: Denies: back pain, joint pain Skin: Denies: rash Neurological: Denies: headache, numbness Endocrine: Denies: increased thirst, increased urine Hematologic/Lymphatic: Denies: easy bruising All Other Systems: negative except mentioned in HPI Physical Exam Vital Signs Date Time Temp Pulse Resp B/P Pulse Ox O2 Delivery O2 Flow Rate FiO2 01/11/17 01:02 97.9 107 18 132/87 98 vitals with tachycardia Sp02 EP Interpretation: reviewed, normal General Appearance: well appearing, no apparent distress, alert Head: normocephalic, atraumatic Eyes: bilateral eye EOMI, bilateral eye PERRL ENT: hearing grossly normal, normal pharynx Neck: full range of motion, supple, no meningismus Respiratory: chest non-tender, lungs clear, normal breath sounds Cardiovascular #1: regular rate, rhythm, no murmur Gastrointestinal: normal bowel sounds, no mass, no organomegaly, no bruit, non- distended, tenderness - Epigastric Musculoskeletal: back normal, gait/station normal, normal range of motion Psychiatric: mood/affect normal Skin: warm/dry Procedures Critical Care Time Critical Care Time Critical care is mandated in this patient who presented with perforated bowel requiring surgery. Patient require my urgent intervention to attenuate the risks of metabolic collapse which may lead to cardiovascular collapse and . Critical care time is 35 minutes excluding any reportable procedure. Critical care time included evaluation, multiple reevaluation, looking at old charts, interpreting laboratory and diagnostic data, discussing case with patient and family and consultants, and charting. Medical Decision Making Diagnostic Impression: Primary Impression: Perforated abdominal viscus Additional Impression: Cocaine abuse ER Course Patient presents with abdominal pain. There is free air on the chest x-ray. He has a perforated bowel most likely secondary to duodenal ulcer. Antibiotics given. IV fluid given. Patient kept n.p.o. I discussed the case with Dr. Morris, surgeon, who will come to see patient in ER. Patient will go to the OR. Explained this to the patient and his nephew. He expressed understanding. Laboratory Tests Test 01/11/17 01:25 01/11/17 02:00 White Blood Count 19.7 K/UL (4.8-10.8) H Red Blood Count 5.33 M/UL (4.70-6.10) Hemoglobin 14.5 G/DL (14.2-18.0) Hematocrit 44.9 % (42.0-52.0) Mean Corpuscular Volume 84 FL (80-99) Mean Corpuscular Hemoglobin 27.3 PG (27.0-31.0) Mean Corpuscular Hemoglobin Concent 32.3 G/DL (32.0-36.0) Red Cell Distribution Width 20.1 % (11.6-14.8) H Platelet Count 342 K/UL (150-450) Mean Platelet Volume 6.7 FL (6.5-10.1) Neutrophils (%) (Auto) % (45.0-75.0) Lymphocytes (%) (Auto) % (20.0-45.0) Monocytes (%) (Auto) % (1.0-10.0) Eosinophils (%) (Auto) % (0.0-3.0) Basophils (%) (Auto) % (0.0-2.0) Differential Total Cells Counted 100 Neutrophils % (Manual) 83 % (45-75) H Lymphocytes % (Manual) 6 % (20-45) L Monocytes % (Manual) 4 % (1-10) Eosinophils % (Manual) 0 % (0-3) Basophils % (Manual) 0 % (0-2) Band Neutrophils 7 % (0-8) Platelet Estimate Adequate Platelet Morphology Normal Red Blood Cell Morphology Normal Sodium Level 140 mEQ/L (135-145) Potassium Level 4.4 mEQ/L (3.4-4.9) Chloride Level 100 mEQ/L (98-107) Carbon Dioxide Level 26 mEQ/L (20-30) Anion Gap 14 (5-15) Blood Urea Nitrogen 20 mg/dL (7-23) Creatinine 1.3 mg/dL (0.7-1.2) H Estimat Glomerular Filtration Rate > 60 mL/min (>60) Glucose Level 141 mg/dL (74-106) H Calcium Level 9.4 mg/dL (8.6-10.2) Total Bilirubin 0.4 mg/dL (0.0-1.2) Aspartate Amino Transf (AST/SGOT) 16 U/L (5-40) Alanine Aminotransferase (ALT/SGPT) 11 U/L (3-41) Alkaline Phosphatase 96 U/L (40-129) Total Protein 7.7 g/dL (6.6-8.7) Albumin 4.3 g/dL (3.5-5.2) Globulin 3.4 g/dL Albumin/Globulin Ratio 1.2 (1.0-2.7) Lipase 17 U/L (< 60) Serum Alcohol < 10 mg/dL Urine Color Yellow Urine Appearance Clear Urine pH 6 (4.5-8.0) Urine Specific [place] 1.020 (1.005-1.035) Urine Protein Negative (NEGATIVE) Urine Glucose (UA) Negative (NEGATIVE) Urine Ketones Negative (NEGATIVE) Urine Occult Blood Negative (NEGATIVE) Urine Nitrite Negative (NEGATIVE) Urine Bilirubin Negative (NEGATIVE) Urine Urobilinogen 1 MG/DL (0.0-1.0) H Urine Leukocyte Esterase Negative (NEGATIVE) Urine Opiates Screen Negative (NEGATIVE) Urine Barbiturates Screen Negative (NEGATIVE) Phencyclidine (PCP) Screen Negative (NEGATIVE) Urine Amphetamines Screen Negative (NEGATIVE) Urine Benzodiazepines Screen Negative (NEGATIVE) Urine Cocaine Screen Positive (NEGATIVE) H Urine Marijuana (THC) Screen Negative (NEGATIVE) Lab Results Impression labs with leukocytosis EKG Diagnostic Results EKG Time: 04:07 Rate: normal Rhythm: NSR ST Segments: no acute changes Rhythm Strip Diag. Results Rhythm Strip Time: 04:07 EP Interpretation: yes Rate: 90 Rhythm: NSR, no PVC's, no ectopy Chest X-Ray Diagnostic Results Chest X-Ray Diagnostic Results : Chest X-Ray Ordered: Yes # of Views/Limited/Complete: 1 View Indication: Chest Pain EP Interpretation: Yes Interpretation: no consolidation, no effusion, no pneumothorax, other - Free air Impression: Other - Free air Interpreting ER Provider: Electronicaled by Paramjit Zheng MD CT/MRI/US Diagnostic Results CT/MRI/US Diagnostic Results : Imaging Test Ordered: CT abdomen and pelvis Impression Read by radiologist. Scattered minimal peritoneum compatible with perforation Last Vital Signs Date Time Temp Pulse Resp B/P Pulse Ox O2 Delivery O2 Flow Rate FiO2 01/11/17 02:18 97.9 100 16 164/97 94 Status: improved Disposition: ADMITTED INPATIENT Condition: Serious Referrals: [facility],REFERRING (PCP) PARAMJIT ZHENG M.D. Jan 11, 2017 04:03
[2017-01-11 04:39] LABS: PROTHROMBIN TIME 10.1 SEC (9.30-11.50)
--- NOTE | 2017-01-11 04:39 | Pre-Procedure Note/Attestation ---
Pre-Procedure Note/Attestation Complete Prior to Procedure Planned Procedure: not applicable Procedure Narrative: Exploratory Laparotomy Indications for Procedure Pre-Operative Diagnosis: Acute Abdomen Attestation I attest that I discussed the nature of the procedure; its benefits; risks and complications; and alternatives (and the risks and benefits of such alternatives ), prior to the procedure, with the patient (or the patient's legal business office representative). I attest that, if there was a reasonable possibility of needing a blood transfusion, the patient (or the patient's legal business office representative) was given the [facility] standardized written summary, pursuant to the [place] Blood Safety Act ([place] Health and Safety Code # 1645, as amended). I attest that I re-evaluated the patient just prior to the surgery and that there has been no change in the patient's H&P, except as documented below: AGNIESZKA PEREZ Jan 11, 2017 04:39
[2017-01-11] MEDS ORDERED: Zemuron 50mg/5ml Inj IV ONE (05:00)
[2017-01-11] MEDS ORDERED: NS Irrig 1000ml ONE (05:00)
[2017-01-11] MEDS ORDERED: Glycopyrrolate 0.2mg/ml 1ml Vial ONE (05:00)
[2017-01-11] MEDS ORDERED: Midazolam 2mg/2ml Inj ONE (05:00)
[2017-01-11] MEDS ORDERED: fentaNYL 100 mcg/2 mL IV ONE (05:00)
[2017-01-11] MEDS ORDERED: Sterile Water Irrig 1000ml IRRIG ONE (05:00)
[2017-01-11] MEDS ORDERED: Propofol 10mg/ml 20ml IV ONE (05:00)
[2017-01-11] MEDS ORDERED: Labetalol 5mg/ml 20ml vial IV ONE (05:00)
[2017-01-11] MEDS ORDERED: LR 1000ml ONE (05:00)
[2017-01-11] MEDS ORDERED: Succinylcholine 20mg/ml 10ml vial ONE (05:00)
[2017-01-11] MEDS ORDERED: Metoclopramide 10mg/2ml Inj ONE (05:00)
[2017-01-11] MEDS ORDERED: Neostigmine 1mg/ml 10ml Inj ONE (05:00)
[2017-01-11] MEDS ORDERED: LR 1000ml 1,000 ML IVLG SCH (06:14)
[2017-01-11] MEDS ORDERED: Hydromorphone 0.5mg/0.5ml inj IVP PRN ×3 (06:15→17:00)
[2017-01-11] MEDS ORDERED: DiphenhydrAMINE 50mg/ml Inj IVP PRN (06:15)
[2017-01-11] MEDS ORDERED: LORazepam Inj 2mg/ml 1ml IV PRN (06:15)
[2017-01-11] MEDS ORDERED: Meperidine 25mg/0.5ml Inj (FOR RIGORS ONLY) IV PRN (06:15)
--- NOTE | 2017-01-11 06:15 | Consultation ---
DATE OF CONSULTATION: 01/11/2017 PREOPERATIVE CONSULTATION CONSULTING PHYSICIAN: Sarika Morris M.D. REFERRING PHYSICIAN: Briseyda Kessler M.D. REASON FOR CONSULTATION: Abdominal pain. HISTORY OF PRESENT ILLNESS: This is a 61-year-old, male, who presented to emergency room for a sudden onset of severe abdominal pain. The pain was located at upper abdomen, but now it is all over the abdomen. He denies any nausea or vomiting and he had a normal bowel movement yesterday. He denies any fever, cough, dysuria, or frequency. He has a history of abdominal pain due to the duodenal ulcer. In fact on 06/2016, he had undergone endoscopy, which has shown duodenal ulcer. He denies consumption of aspirin, ibuprofen, or steroid. PAST MEDICAL HISTORY: He denies allergies, asthma, diabetes, hypertension, cardiac, or renal diseases. PAST SURGICAL HISTORY: None. MEDICATIONS: None. SOCIAL HISTORY: Mr. Hampton is a 61-year-old, male, single and father of one child. He smokes half a pack of cigarettes per day and drinks occasionally and he claims that occasionally he uses steroids. REVIEW OF SYSTEMS: Noncontributory. PHYSICAL EXAMINATION: GENERAL: The patient appeared to be a well-developed, well-nourished, 61-year-old, male, lying on the gurney, complaining of abdominal pain. HEENT: Head is normocephalic and atraumatic. Eyes, pupils are equal, round, and reactive to light. Mouth is clear. NECK: There is no palpable thyromegaly or adenopathy. CHEST: Clear to auscultation and percussion. HEART: There is no gallop or murmur. S1 and S2 are within normal limits. ABDOMEN: He has boardlike rigidity. He has rebound tenderness and guarding all over, which is more pronounced at the upper abdomen. Bowel sounds had been absent. GENITAL: Normal. EXTREMITIES: Within normal limits. LABORATORY AND DIAGNOSTIC DATA: CBC has shown a WBC of 16,000. Chemistry is normal. CAT scan of the abdomen has shown pneumoperitoneum. ASSESSMENT: Acute abdomen probably due to the perforated ulcer. PLAN: The patient requires an exploratory laparotomy, and the risks and benefits have been explained to him. He understood and granted consent. Sarika Morris M.D. DR: ELIDA JOB#: [id number] CC:
--- NOTE | 2017-01-11 06:31 | Anethesia Preoperative Eval ---
Anesthesia Pre-op PMH/ROS General Date of Evaluation: Jan 11, 2017 Time of Evaluation: 05:00 Anesthesiologist: Neha ASA Score: ASA 2 Mallampati Score Class I : Soft palate, uvula, fauces, pillars visible Class II: Soft palate, uvula, fauces visible Class III: Soft palate, base of uvula visible Class IV: Only hard plate visible Mallampati Classification: Class II Surgeon: Alexandra Diagnosis: Perforated ulcer Surgical Procedure: Emergency exploratory laparotomy Allergies: Coded Allergies: No Known Allergies (Unverified , 05/07/14) Medications: see eMAR Past Medical History Cardiovascular: Denies: CAD, HTN, ND, arrhythmia, other, valve dz Pulmonary: Denies: COPD, [place], asthma, other Gastrointestinal/Genitourinary: Reports: GERD, other - Gastritis, Denies: CRI, ESRD Neurologic/Psychiatric: Denies: CVA, TIA, dementia, depression/anxiety, other Endocrine: Denies: DM, hypothyroidism, other, steroids HEENT: Denies: NATIVE (L), NATIVE (R), cataract (L), cataract (R), glaucoma, other Hematology/Immune: Reports: anemia - In the past, Denies: DVT, bleeding disorder, other Musculoskeletal/Integumentary: Denies: DDD, DJD, OA, RA, edema, other PMH Narrative: GERD, gastritis, anemia (former) PSxH Narrative: EGD Anesthesia Pre-op Phys. Exam Physician Exam Last Vital Signs Date Time Temp Pulse Resp B/P Pulse Ox O2 Delivery O2 Flow Rate FiO2 01/11/17 05:14 97.9 96 15 163/104 94 Nasal Cannula 2.0 Constitutional: NAD Neurologic: CN 2-12 intact Cardiovascular: RRR, no M/R/G Respiratory: CTA Gastrointestinal: S/NT/ND Airway Exam Mallampati Score: Class II MO: full ROM: full Teeth: missing Anesthesia Pre-op A/P Labs Hematology Test 01/11/17 01:25 White Blood Count 19.7 K/UL (4.8-10.8) H Red Blood Count 5.33 M/UL (4.70-6.10) Hemoglobin 14.5 G/DL (14.2-18.0) Hematocrit 44.9 % (42.0-52.0) Mean Corpuscular Volume 84 FL (80-99) Mean Corpuscular Hemoglobin 27.3 PG (27.0-31.0) Mean Corpuscular Hemoglobin Concent 32.3 G/DL (32.0-36.0) Red Cell Distribution Width 20.1 % (11.6-14.8) H Platelet Count 342 K/UL (150-450) Mean Platelet Volume 6.7 FL (6.5-10.1) Neutrophils (%) (Auto) % (45.0-75.0) Lymphocytes (%) (Auto) % (20.0-45.0) Monocytes (%) (Auto) % (1.0-10.0) Eosinophils (%) (Auto) % (0.0-3.0) Basophils (%) (Auto) % (0.0-2.0) Differential Total Cells Counted 100 Neutrophils % (Manual) 83 % (45-75) H Lymphocytes % (Manual) 6 % (20-45) L Monocytes % (Manual) 4 % (1-10) Eosinophils % (Manual) 0 % (0-3) Basophils % (Manual) 0 % (0-2) Band Neutrophils 7 % (0-8) Platelet Estimate Adequate Platelet Morphology Normal Red Blood Cell Morphology Normal Coagulation Test 01/11/17 04:20 Prothrombin Time 10.1 SEC (9.30-11.50) Prothromb Time International Ratio 1.0 (0.9-1.1) Chemistry Test 01/11/17 01:25 Sodium Level 140 mEQ/L (135-145) Potassium Level 4.4 mEQ/L (3.4-4.9) Chloride Level 100 mEQ/L (98-107) Carbon Dioxide Level 26 mEQ/L (20-30) Anion Gap 14 (5-15) Blood Urea Nitrogen 20 mg/dL (7-23) Creatinine 1.3 mg/dL (0.7-1.2) H Estimat Glomerular Filtration Rate > 60 mL/min (>60) Glucose Level 141 mg/dL (74-106) H Calcium Level 9.4 mg/dL (8.6-10.2) Total Bilirubin 0.4 mg/dL (0.0-1.2) Aspartate Amino Transf (AST/SGOT) 16 U/L (5-40) Alanine Aminotransferase (ALT/SGPT) 11 U/L (3-41) Alkaline Phosphatase 96 U/L (40-129) Total Protein 7.7 g/dL (6.6-8.7) Albumin 4.3 g/dL (3.5-5.2) Globulin 3.4 g/dL Albumin/Globulin Ratio 1.2 (1.0-2.7) Lipase 17 U/L (< 60) Studies Pre-op Studies: EKG - SB Risk Assessment & Plan Assessment: Possible hypertensive male with h/o gastritis and GERD here for emergency laparotomy secondary to perforated ulcer Plan: GETA, rapid sequence, cricoid pressure Status Change Before Surgery: No Pre-Antibiotics Drug: None PABLO RILEY M.D. Jan 11, 2017 06:31
--- NOTE | 2017-01-11 06:32 | Immediate Post-Op Evaluation ---
Immediate Post-Op Evalulation Immediate Post-Op Evalulation Procedure: Emercency exploratory laparotomy secondary to perforated ulcer Date of Evaluation: Jan 11, 2017 Time of Evaluation: 07:17 IV Fluids: 1600 Estimated Blood Loss: 30 Blood Pressure Systolic: 175 Blood Pressure Diastolic: 114 Pulse Rate: 91 Respiratory Rate: 26 O2 Sat by Pulse Oximetry: 99 Temperature (Fahrenheit): 98.5 Pain Score (1-10): 5 Nausea: No Vomiting: No Complications No complication Patient Status: reacts, patent, extubated, none Hydration Status: adequate Drug: None PABLO RILEY M.D. Jan 11, 2017 06:32
--- NOTE | 2017-01-11 06:48 | Brief Operative Note ---
Immediate Post Operative Note Operative Note Pre-op Diagnosis: Acute Abdomen Procedure: exploratory laparotomy, pyloroplasty with Alfonso patch Post-op Diagnosis: perforated peptic ulcer Findings: consistent w/pre-op dx studies Surgeon: MD Jarrett [employer] Ad[employer] Specialist: none Anesthesiologist: Dr. De La O Specimen: none Complications: none Condition: stable Estimated Blood Loss: minimal Drains: other - yahir Implant(s) used?: No AGNIESZKA PEREZ Jan 11, 2017 06:48
[2017-01-11] MEDS ORDERED: Bacitracin 50000 Units Vial ONE (07:25)
--- NOTE | 2017-01-11 08:45 | Operative Note - Dictated ---
DATE OF OPERATION: 01/11/2017 PREOPERATIVE DIAGNOSIS: Acute abdomen. POSTOPERATIVE DIAGNOSIS: Perforated pyloric ulcer. OPERATION: Exploratory laparotomy, pyloroplasty, and castillo patch. COMPLICATION: None. SURGEON: Sarika Morris M.D. NETWORK SECURITY ENGINEER: None. ANESTHESIA: General with endotracheal tube. ANESTHESIOLOGIST: Joseph Solomon M.D. INDICATION: This is a 61-year-old male, who presented to emergency room complaining of 8 hours of severe sudden abdominal pain, however, the pain was mainly all over the abdomen, but mainly in the upper abdomen. Physical examination showed board-like rigidity and tenderness of the abdomen. CBC showed a WBC of 19,000 with a left shift. CAT scan showed pneumoperitoneum and the patient has a history of duodenal ulcer. DESCRIPTION OF PROCEDURE: The patient was placed supine on the operating table. After general anesthesia with endotracheal tube, the abdomen was properly prepped and draped. A midline incision was given above the umbilicus and was carried sharply through the subcutaneous tissue, fascia, and peritoneum. The intra-abdominal cavity was entered. The exploration was performed which showed mild bilious fluid in the abdomen. Further exploration was performed which showed perforated ulcer which seems to be prepyloric and this opening was small. It was about 3 mm, but there was severe scar tissue in that area. Obviously, the patient had a chronic ulcer which finally perforated. The lumen was explored and the stomach and the duodenum was entered. There was severe scarring. The decision was made for small pyloroplasty, so the perforation was extended transversely for about 1 cm. We had a nice opening into the stomach and the duodenum. The incision and the defect was repaired in transverse fashion with multiple interrupted suture of 4-0 silk. After this the intra-abdominal cavity was thoroughly irrigated with antibiotic solution and then the castillo patch was performed with application of the omentum over the repair, which was anchored down to the repair. The intra-abdominal cavity was again irrigated and then the Gus drain was placed under the liver and was brought out from a separate stab wound. The incision was repaired with a running suture of 0 Vicryl from the posterior fascia and peritoneum with #1 Prolene for the fascia and multiple skin santiago. The patient tolerated the procedure very well and was transferred to recovery room in stable condition and extubated. The sponge and needle count correct. Estimated blood loss 10 mL. Condition of the patient at the end of procedure is stable. Sarika Morris M.D. DR: ABEL JOB#: [id number] CC:
[2017-01-11] MEDS ORDERED: Enoxaparin 40mg Inj SUBQ SCH (09:00)
[2017-01-11] MEDS ORDERED: Heparin 5000 units/ml inj SUBQ SCH (09:00)
[2017-01-11] MEDS ORDERED: HYDROmorphone 1mg/ml Carpuject IVP PRN (09:00)
[2017-01-11] MEDS ORDERED: Nitroglycerin Subl 0.4mg tab (Bottle Of 25) SL PRN ×2 (09:00→17:00)
[2017-01-11] MEDS ORDERED: Mylanta II UD 30ml ORAL PRN ×2 (09:00→17:00)
[2017-01-11] MEDS ORDERED: Morphine Sulfate 2mg/ml Inj IVP PRN ×2 (09:00→17:00)
[2017-01-11] MEDS ORDERED: Acetaminophen 650 MG SUPP RECTAL PRN ×2 (09:00→17:00)
[2017-01-11] MEDS ORDERED: Metoclopramide 10mg/2ml Inj IVP PRN ×2 (09:30→17:00)
--- NOTE | 2017-01-11 09:53 | Diagnostic Imaging Report ---
Indications: Abdominal pain Technique: Continuous helical CT imaging of the abdomen and pelvis was performed with automatic exposure control on a Siemens sensation [address] scanner. Axial, coronal, sagittal images reconstructed at 3 mm slice thickness. No oral or IV contrast was administered per requesting physician's order, no contraindications listed. CTDI volume(s): 10 mGy Total DLP: 495 mGy-cm Findings: Comparison: 06/22/16 Lack of IV and oral contrast, paucity of body fat limit evaluation. Intraperitoneal free air and fluid. Gas in malaika hepatis and left intersegmental fissure. Gastrointestinal tract nondilated. Mural thickening not excludable. Subcentimeter circumscribed low-attenuation focus in hepatic segment 6 unchanged, not further characterizable. Urinary bladder moderately distended with suggestion of mild mural thickening. Small fat-containing umbilical hernia. Scattered arterial mural calcifications. Vascular patency indeterminate. Remainder visualized pelvic anatomy demonstrates no other obvious acute abnormality. Emphysematous changes, interlobular septal thickening/fibrosis, subsegmental parenchymal consolidation in both lung bases. Heart enlarged. Multilevel disc space narrowing with marginal osteophyte formation, vacuum phenomenon lumbar, lower thoracic spine. 1 cm anterior subluxation of L5 on S1. Bilateral pars interarticularis defects at L5. Impression: Pneumoperitoneum compatible with acute/recent bowel perforation, site and etiology indeterminate. Free fluid likely secondary to above No evidence of overt bowel obstruction. Mural thickening not excludable. Stable nonspecific lesion right hepatic lobe Arteriosclerosis Apparent urinary bladder wall thickening--underdistention versus hypertrophy versus cystitis Umbilical hernia Pulmonary bibasal emphysematous changes, interstitial disease/fibrosis, subsegmental atelectasis Degenerative spondylosis L5-S1 grade 1 spondylolisthesis, bilateral spondylolysis This correlates with [facility] preliminary report.
[2017-01-11] MEDS ORDERED: D5 1/2NS w/KCl 20mEq 1,000 ML IV SCH (10:00)
[2017-01-11] MEDS ORDERED: ceFAZolin sod 1 GM in D5W 55 ML IV SCH ×2 (10:00→18:00)
--- NOTE | 2017-01-11 11:14 | History and Physical ---
History of Present Illness General Date patient seen: Jan 11, 2017 Reason for Hospitalization: Abdominal Pain Present Illness HPI 61-year-old male with a history of esophagitis and duodenal ulcer, cocaine abuse. He presented with chief complaint of acute onset of epigastric pain. Onset was for the last one to 2 hours. He had a CT scan in ER showing free air. He underwent emergent laparotomy, closure of perforated pyloric ulcer. Allergies: Coded Allergies: No Known Allergies (Unverified , 05/07/14) Medication History Scheduled No Known Medications* (NKM - No Known Medications*), 0 ., (Reported) Pantoprazole* (Protonix*), 40 MG ORAL DAILY Ranitidine Hcl* (Zantac*), 150 MG ORAL TWICE A DAY Patient History Healthcare decision maker Resuscitation status Full Code Advanced Directive on File Past Medical/Surgical History Past Medical/Surgical History: (1) Cocaine abuse (2) Gastritis (3) GERD (gastroesophageal reflux disease) Review of Systems All Other Systems: negative except mentioned in HPI Physical Exam General Appearance: cachetic Lines, tubes and drains: peripheral HEENT: normocephalic, atraumatic Neck: non-tender, normal alignment Respiratory/Chest: chest wall non-tender, lungs clear Cardiovascular/Chest: normal peripheral pulses, normal rate Abdomen: normal bowel sounds, non tender Genitourinary/Rectal: normal genital exam Extremities: normal range of motion Last 24 Hour Vital Signs Date Time Temp Pulse Resp B/P Pulse Ox O2 Delivery O2 Flow Rate FiO2 01/11/17 08:57 97.5 90 21 138/81 93 Nasal Cannula 3.0 01/11/17 08:00 99.7 85 18 143/88 96 Nasal Cannula 3.0 01/11/17 08:00 98.6 01/11/17 07:50 85 19 150/87 97 Nasal Cannula 3.0 01/11/17 07:40 84 16 157/96 97 Nasal Cannula 3.0 01/11/17 07:30 85 19 156/108 97 Nasal Cannula 3.0 01/11/17 07:20 82 16 161/108 97 Nasal Cannula 3.0 01/11/17 07:16 91 26 99 01/11/17 07:15 84 18 170/115 97 Simple Mask 6.0 01/11/17 07:14 175/114 01/11/17 07:10 83 16 176/116 98 Simple Mask 6.0 01/11/17 07:07 98.5 85 14 175/114 98 Simple Mask 6.0 01/11/17 05:14 97.9 96 15 163/104 94 Nasal Cannula 2.0 01/11/17 04:11 97.9 96 15 163/104 94 Nasal Cannula 2.0 01/11/17 02:18 97.9 100 16 164/97 94 01/11/17 02:17 97.9 01/11/17 01:02 97.9 107 18 132/87 98 Intake and Output 01/10/17 01/11/17 19:00 07:00 Intake Total 1110 ml Balance 1110 ml Intake IV Total 1110 ml # Voids 1 Laboratory Tests Test 01/11/17 01:25 01/11/17 02:00 01/11/17 04:20 White Blood Count 19.7 K/UL (4.8-10.8) H Red Blood Count 5.33 M/UL (4.70-6.10) Hemoglobin 14.5 G/DL (14.2-18.0) Hematocrit 44.9 % (42.0-52.0) Mean Corpuscular Volume 84 FL (80-99) Mean Corpuscular Hemoglobin 27.3 PG (27.0-31.0) Mean Corpuscular Hemoglobin Concent 32.3 G/DL (32.0-36.0) Red Cell Distribution Width 20.1 % (11.6-14.8) H Platelet Count 342 K/UL (150-450) Mean Platelet Volume 6.7 FL (6.5-10.1) Neutrophils (%) (Auto) % (45.0-75.0) Lymphocytes (%) (Auto) % (20.0-45.0) Monocytes (%) (Auto) % (1.0-10.0) Eosinophils (%) (Auto) % (0.0-3.0) Basophils (%) (Auto) % (0.0-2.0) Differential Total Cells Counted 100 Neutrophils % (Manual) 83 % (45-75) H Lymphocytes % (Manual) 6 % (20-45) L Monocytes % (Manual) 4 % (1-10) Eosinophils % (Manual) 0 % (0-3) Basophils % (Manual) 0 % (0-2) Band Neutrophils 7 % (0-8) Platelet Estimate Adequate Platelet Morphology Normal Red Blood Cell Morphology Normal Sodium Level 140 mEQ/L (135-145) Potassium Level 4.4 mEQ/L (3.4-4.9) Chloride Level 100 mEQ/L (98-107) Carbon Dioxide Level 26 mEQ/L (20-30) Anion Gap 14 (5-15) Blood Urea Nitrogen 20 mg/dL (7-23) Creatinine 1.3 mg/dL (0.7-1.2) H Estimat Glomerular Filtration Rate > 60 mL/min (>60) Glucose Level 141 mg/dL (74-106) H Calcium Level 9.4 mg/dL (8.6-10.2) Total Bilirubin 0.4 mg/dL (0.0-1.2) Aspartate Amino Transf (AST/SGOT) 16 U/L (5-40) Alanine Aminotransferase (ALT/SGPT) 11 U/L (3-41) Alkaline Phosphatase 96 U/L (40-129) Total Protein 7.7 g/dL (6.6-8.7) Albumin 4.3 g/dL (3.5-5.2) Globulin 3.4 g/dL Albumin/Globulin Ratio 1.2 (1.0-2.7) Lipase 17 U/L (< 60) Serum Alcohol < 10 mg/dL Urine Color Yellow Urine Appearance Clear Urine pH 6 (4.5-8.0) Urine Specific [place] 1.020 (1.005-1.035) Urine Protein Negative (NEGATIVE) Urine Glucose (UA) Negative (NEGATIVE) Urine Ketones Negative (NEGATIVE) Urine Occult Blood Negative (NEGATIVE) Urine Nitrite Negative (NEGATIVE) Urine Bilirubin Negative (NEGATIVE) Urine Urobilinogen 1 MG/DL (0.0-1.0) H Urine Leukocyte Esterase Negative (NEGATIVE) Urine Opiates Screen Negative (NEGATIVE) Urine Barbiturates Screen Negative (NEGATIVE) Phencyclidine (PCP) Screen Negative (NEGATIVE) Urine Amphetamines Screen Negative (NEGATIVE) Urine Benzodiazepines Screen Negative (NEGATIVE) Urine Cocaine Screen Positive (NEGATIVE) H Urine Marijuana (THC) Screen Negative (NEGATIVE) Prothrombin Time 10.1 SEC (9.30-11.50) Prothromb Time International Ratio 1.0 (0.9-1.1) Height (Feet): 5 Height (Inches): 9.00 Weight (Pounds): 150 Medications Current Medications Medications (Trade) Dose Ordered Sig/Jevon Route PRN Reason Start Time Stop Time Status Last Admin Dose Admin Acetaminophen (Tylenol) 650 mg Q4H PRN ORAL fever>100.5 01/11/17 09:00 02/10/17 08:59 Acetaminophen (Tylenol) 650 mg Q4H PRN RECTAL FEVER>100.5 01/11/17 09:00 02/10/17 08:59 Al Hydroxide/Mg Hydroxide (Mylanta II) 30 ml Q6H PRN ORAL dyspepsia 01/11/17 09:00 02/10/17 08:59 Cefazolin Sodium/ Dextrose (Ancef/D5W) 55 ml @ 110 mls/hr Q8H IV 01/11/17 10:00 01/11/17 18:29 01/11/17 10:39 Dextrose STAT PRN IV Hypoglycemia 01/11/17 09:00 02/10/17 08:59 Dextrose/ Electrolytes (D5 0.45%NS W/ KCl 20mEq) 1,000 ml @ 100 mls/hr Q10H IV 01/11/17 10:00 02/10/17 09:59 01/11/17 09:48 Diphenhydramine HCl (Benadryl) 25 mg Q6H PRN ORAL Itching/Pruritis 01/11/17 09:00 02/10/17 08:59 Enoxaparin Sodium (Lovenox) 40 mg DAILY SUBQ 01/11/17 09:00 02/10/17 08:59 01/11/17 09:49 Famotidine (Pepcid I.v.) 20 mg Q12HR IVP 01/11/17 21:00 02/10/17 20:59 Heparin Sodium (Porcine) (Heparin 5000 units/ml) 5,000 units EVERY 12 HOURS SUBQ 01/11/17 09:00 02/10/17 08:59 Hydromorphone HCl (Dilaudid) 1 mg Q3H PRN IVP pain score 4-6 01/11/17 09:00 01/18/17 08:59 Hydromorphone HCl (Dilaudid) 2 mg Q3H PRN IVP pain score 7-10 01/11/17 09:00 01/18/17 08:59 Hydromorphone HCl 0.5 mg 0.5 mg Q3H PRN IVP Pain Score 1-3 01/11/17 09:00 01/18/17 08:59 Metoclopramide HCl (Reglan) 10 mg Q6H PRN IVP Nausea & Vomiting 01/11/17 09:30 02/10/17 09:29 Morphine Sulfate (Morphine Sulfate) 2 mg Q4H PRN IVP severe Pain (Pain Scale 7-10) 01/11/17 09:00 01/18/17 08:59 Nitroglycerin (Ntg) 0.4 mg Q5M X 3 DOSES PRN SL Prn Chest Pain 01/11/17 09:00 02/10/17 08:59 Ondansetron HCl (Zofran) 4 mg Q6H PRN IVP Nausea & Vomiting 01/11/17 09:00 02/10/17 08:59 Polyethylene Glycol (Miralax) 17 gm HSPRN PRN ORAL Constipation 01/11/17 21:00 02/10/17 20:59 Temazepam (Restoril) 15 mg HSPRN PRN ORAL Insomnia 01/11/17 21:00 01/18/17 20:59 Assessment/Plan Problem List: (1) Perforated abdominal viscus SNOMED: 054399739 (2) Protein-calorie malnutrition, severe ICD Codes: E43 - Unspecified severe protein-calorie malnutrition SNOMED: 328051564 (3) Cocaine abuse ICD Codes: F14.10 - Cocaine abuse, uncomplicated SNOMED: 77105672, 450160343 Assessment/Plan npo IV fluids GI and ID f/u symptomatic treatment transfer to med/surg when pt is more awake DILIP RASHEED Jan 11, 2017 11:14
--- NOTE | 2017-01-11 12:17 | Infectious Diseases Prog Note ---
Assessment/Plan Assessment/Plan ID consult dictated # [id number] Subjective Allergies: Coded Allergies: No Known Allergies (Unverified , 05/07/14) Objective Vital Signs Last 24 Hour Vital Signs Date Time Temp Pulse Resp B/P Pulse Ox O2 Delivery O2 Flow Rate FiO2 01/11/17 12:00 97.3 91 22 138/90 96 Nasal Cannula 3.0 01/11/17 08:57 97.5 90 21 138/81 93 Nasal Cannula 3.0 01/11/17 08:00 99.7 85 18 143/88 96 Nasal Cannula 3.0 01/11/17 08:00 98.6 01/11/17 07:50 85 19 150/87 97 Nasal Cannula 3.0 01/11/17 07:40 84 16 157/96 97 Nasal Cannula 3.0 01/11/17 07:30 85 19 156/108 97 Nasal Cannula 3.0 01/11/17 07:20 82 16 161/108 97 Nasal Cannula 3.0 01/11/17 07:16 91 26 99 01/11/17 07:15 84 18 170/115 97 Simple Mask 6.0 01/11/17 07:14 175/114 01/11/17 07:10 83 16 176/116 98 Simple Mask 6.0 01/11/17 07:07 98.5 85 14 175/114 98 Simple Mask 6.0 01/11/17 05:14 97.9 96 15 163/104 94 Nasal Cannula 2.0 01/11/17 04:11 97.9 96 15 163/104 94 Nasal Cannula 2.0 01/11/17 02:18 97.9 100 16 164/97 94 01/11/17 02:17 97.9 01/11/17 01:02 97.9 107 18 132/87 98 Height (Feet): 5 Height (Inches): 9.00 Weight (Pounds): 150 Laboratory Tests Test 01/11/17 01:25 01/11/17 02:00 01/11/17 04:20 White Blood Count 19.7 K/UL (4.8-10.8) H Red Blood Count 5.33 M/UL (4.70-6.10) Hemoglobin 14.5 G/DL (14.2-18.0) Hematocrit 44.9 % (42.0-52.0) Mean Corpuscular Volume 84 FL (80-99) Mean Corpuscular Hemoglobin 27.3 PG (27.0-31.0) Mean Corpuscular Hemoglobin Concent 32.3 G/DL (32.0-36.0) Red Cell Distribution Width 20.1 % (11.6-14.8) H Platelet Count 342 K/UL (150-450) Mean Platelet Volume 6.7 FL (6.5-10.1) Neutrophils (%) (Auto) % (45.0-75.0) Lymphocytes (%) (Auto) % (20.0-45.0) Monocytes (%) (Auto) % (1.0-10.0) Eosinophils (%) (Auto) % (0.0-3.0) Basophils (%) (Auto) % (0.0-2.0) Differential Total Cells Counted 100 Neutrophils % (Manual) 83 % (45-75) H Lymphocytes % (Manual) 6 % (20-45) L Monocytes % (Manual) 4 % (1-10) Eosinophils % (Manual) 0 % (0-3) Basophils % (Manual) 0 % (0-2) Band Neutrophils 7 % (0-8) Platelet Estimate Adequate Platelet Morphology Normal Red Blood Cell Morphology Normal Sodium Level 140 mEQ/L (135-145) Potassium Level 4.4 mEQ/L (3.4-4.9) Chloride Level 100 mEQ/L (98-107) Carbon Dioxide Level 26 mEQ/L (20-30) Anion Gap 14 (5-15) Blood Urea Nitrogen 20 mg/dL (7-23) Creatinine 1.3 mg/dL (0.7-1.2) H Estimat Glomerular Filtration Rate > 60 mL/min (>60) Glucose Level 141 mg/dL (74-106) H Calcium Level 9.4 mg/dL (8.6-10.2) Total Bilirubin 0.4 mg/dL (0.0-1.2) Aspartate Amino Transf (AST/SGOT) 16 U/L (5-40) Alanine Aminotransferase (ALT/SGPT) 11 U/L (3-41) Alkaline Phosphatase 96 U/L (40-129) Total Protein 7.7 g/dL (6.6-8.7) Albumin 4.3 g/dL (3.5-5.2) Globulin 3.4 g/dL Albumin/Globulin Ratio 1.2 (1.0-2.7) Lipase 17 U/L (< 60) Serum Alcohol < 10 mg/dL Urine Color Yellow Urine Appearance Clear Urine pH 6 (4.5-8.0) Urine Specific [place] 1.020 (1.005-1.035) Urine Protein Negative (NEGATIVE) Urine Glucose (UA) Negative (NEGATIVE) Urine Ketones Negative (NEGATIVE) Urine Occult Blood Negative (NEGATIVE) Urine Nitrite Negative (NEGATIVE) Urine Bilirubin Negative (NEGATIVE) Urine Urobilinogen 1 MG/DL (0.0-1.0) H Urine Leukocyte Esterase Negative (NEGATIVE) Urine Opiates Screen Negative (NEGATIVE) Urine Barbiturates Screen Negative (NEGATIVE) Phencyclidine (PCP) Screen Negative (NEGATIVE) Urine Amphetamines Screen Negative (NEGATIVE) Urine Benzodiazepines Screen Negative (NEGATIVE) Urine Cocaine Screen Positive (NEGATIVE) H Urine Marijuana (THC) Screen Negative (NEGATIVE) Prothrombin Time 10.1 SEC (9.30-11.50) Prothromb Time International Ratio 1.0 (0.9-1.1) Current Medications Medications (Trade) Dose Ordered Sig/Jevon Route PRN Reason Start Time Stop Time Status Last Admin Dose Admin Acetaminophen (Tylenol) 650 mg Q4H PRN ORAL fever>100.5 01/11/17 09:00 02/10/17 08:59 Acetaminophen (Tylenol) 650 mg Q4H PRN RECTAL FEVER>100.5 01/11/17 09:00 02/10/17 08:59 Al Hydroxide/Mg Hydroxide (Mylanta II) 30 ml Q6H PRN ORAL dyspepsia 01/11/17 09:00 02/10/17 08:59 Cefazolin Sodium/ Dextrose (Ancef/D5W) 55 ml @ 110 mls/hr Q8H IV 01/11/17 10:00 01/11/17 18:29 01/11/17 10:39 Dextrose STAT PRN IV Hypoglycemia 01/11/17 09:00 02/10/17 08:59 Dextrose/ Electrolytes (D5 0.45%NS W/ KCl 20mEq) 1,000 ml @ 100 mls/hr Q10H IV 01/11/17 10:00 02/10/17 09:59 01/11/17 09:48 Diphenhydramine HCl (Benadryl) 25 mg Q6H PRN ORAL Itching/Pruritis 01/11/17 09:00 02/10/17 08:59 Famotidine 20 mg 20 mg Q12HR IVP 01/11/17 21:00 02/10/17 20:59 Heparin Sodium (Porcine) (Heparin 5000 units/ml) 5,000 units EVERY 12 HOURS SUBQ 01/11/17 09:00 02/10/17 08:59 Hydromorphone HCl (Dilaudid) 1 mg Q3H PRN IVP pain score 4-6 01/11/17 09:00 01/18/17 08:59 Hydromorphone HCl (Dilaudid) 2 mg Q3H PRN IVP pain score 7-10 01/11/17 09:00 01/18/17 08:59 Hydromorphone HCl 0.5 mg 0.5 mg Q3H PRN IVP Pain Score 1-3 01/11/17 09:00 01/18/17 08:59 Metoclopramide HCl (Reglan) 10 mg Q6H PRN IVP Nausea & Vomiting 01/11/17 09:30 02/10/17 09:29 Morphine Sulfate (Morphine Sulfate) 2 mg Q4H PRN IVP severe Pain (Pain Scale 7-10) 01/11/17 09:00 01/18/17 08:59 Nitroglycerin (Ntg) 0.4 mg Q5M X 3 DOSES PRN SL Prn Chest Pain 01/11/17 09:00 02/10/17 08:59 Ondansetron HCl (Zofran) 4 mg Q6H PRN IVP Nausea & Vomiting 01/11/17 09:00 02/10/17 08:59 Piperacillin Sod/ Tazobactam Sod/ Dextrose (Zosyn/D5W) 110 ml @ 27.5 mls/hr EVERY 8 HOURS IVPB 01/11/17 14:00 01/16/17 13:59 UNV Polyethylene Glycol (Miralax) 17 gm HSPRN PRN ORAL Constipation 01/11/17 21:00 02/10/17 20:59 Temazepam (Restoril) 15 mg HSPRN PRN ORAL Insomnia 01/11/17 21:00 01/18/17 20:59 GLORIA HERNÁNDEZ Jan 11, 2017 12:17
--- NOTE | 2017-01-11 13:34 | Diagnostic Imaging Report ---
Indications: Chest pain Technique: Portable AP chest Findings: Comparison: 06/22/16 Cardiac silhouette remains enlarged. Pulmonary vasculature remains within normal limits. Visualized portions of lungs and pleura remain clear. Gas is now present beneath the diaphragm. Mild aortic arch calcification, cephalad subluxation of the right humerus narrowing the subacromial space narrowing of the right glenohumeral joint with marginal osteophyte formation again noted. IMPRESSION: Pneumoperitoneum. Suspect GI tract perforation. CT abdomen pelvis recommended. No evidence of acute cardiopulmonary disease, unchanged Stable chronic changes as described
[2017-01-11] MEDS ORDERED: Piperacillin/Tazobactam 3.375 GM in NS 110 ML IVPB SCH (14:00)
[2017-01-11] MEDS ORDERED: Piperacillin/Tazobactam 3.375 GM in D5W 110 ML IVPB SCH (14:00)
--- NOTE | 2017-01-11 14:26 | GI Initial Consult Note ---
History of Present Illness General Date patient seen: Jan 11, 2017 Time patient seen: 14:20 Reason for Hospitalization: Abdominal Pain Referring physician: DILIP FIELDS Reason for Consultation: ABDOMINAL PAIN Present Illness HPI This is a 61-year-old male with a history of esophagitis and duodenal ulcer. He continued to smoke. Also history of cocaine abuse. He had endoscopy by Dr. Castellon in June 2016 confirming this. He presents with chief complaint of acute onset of epigastric pain. Onset was for the last one to 2 hours. Pain is severe. 10 out of 10. Localized to the epigastric area. No radiation. Has nausea but no vomiting. No diarrhea. GI consult. HPI as noted above. GI consulted for abdominal pain. Pt seen on floor, fatigue with c/o of dry mouth. Patient is currently NPO s/p surgery of perforated ulcer from previous diagnosis DU. He presents today with leukocytosis and positive for cocaine on utox. Endoscopy Procedure Note Indication for Procedure: anemia Procedures Performed: EGD Operative Findings/Diagnosis: large DU ABHILASH CASTELLON - Jun 23, 2016 10:54 Home Meds Active Scripts Pantoprazole* (PROTONIX*) 40 Mg Tablet., 40 MG ORAL DAILY for 30 Days, TAB Prov:DLIIP RASHEED 06/23/16 Ranitidine Hcl* (ZANTAC*) 150 Mg Tablet, 150 MG ORAL TWICE A DAY, #30 TAB Prov:CARMEN GARCIA M.D. 05/07/14 Reported Medications No Known Medications* (NKM - No Known Medications*) ., 0 ., 0 Refills 05/05/16 Med list reviewed/reconciled: Yes Allergies: Coded Allergies: No Known Allergies (Unverified , 05/07/14) Patient History Limited by: medical condition History Provided By: Patient, Medical Record PMH Narrative Past Medical History: see triage record, old chart reviewed Past Surgical History: other Pertinent Family History: none Social History: Reports: drug use, smoking Immunizations: other Reviewed Nursing Documentation: PMH: Agreed, PSxH: Agreed Review of Systems All Other Systems: negative except mentioned in HPI Physical Exam Vital Signs Date Time Temp Pulse Resp B/P Pulse Ox O2 Delivery O2 Flow Rate FiO2 01/11/17 01:02 97.9 107 18 132/87 98 8/22/17 04:11 Nasal Cannula 2.0 Sp02 EP Interpretation: reviewed Labs Laboratory Tests Test 01/11/17 01:25 01/11/17 02:00 01/11/17 04:20 White Blood Count 19.7 K/UL (4.8-10.8) H Red Blood Count 5.33 M/UL (4.70-6.10) Hemoglobin 14.5 G/DL (14.2-18.0) Hematocrit 44.9 % (42.0-52.0) Mean Corpuscular Volume 84 FL (80-99) Mean Corpuscular Hemoglobin 27.3 PG (27.0-31.0) Mean Corpuscular Hemoglobin Concent 32.3 G/DL (32.0-36.0) Red Cell Distribution Width 20.1 % (11.6-14.8) H Platelet Count 342 K/UL (150-450) Mean Platelet Volume 6.7 FL (6.5-10.1) Neutrophils (%) (Auto) % (45.0-75.0) Lymphocytes (%) (Auto) % (20.0-45.0) Monocytes (%) (Auto) % (1.0-10.0) Eosinophils (%) (Auto) % (0.0-3.0) Basophils (%) (Auto) % (0.0-2.0) Differential Total Cells Counted 100 Neutrophils % (Manual) 83 % (45-75) H Lymphocytes % (Manual) 6 % (20-45) L Monocytes % (Manual) 4 % (1-10) Eosinophils % (Manual) 0 % (0-3) Basophils % (Manual) 0 % (0-2) Band Neutrophils 7 % (0-8) Platelet Estimate Adequate Platelet Morphology Normal Red Blood Cell Morphology Normal Sodium Level 140 mEQ/L (135-145) Potassium Level 4.4 mEQ/L (3.4-4.9) Chloride Level 100 mEQ/L (98-107) Carbon Dioxide Level 26 mEQ/L (20-30) Anion Gap 14 (5-15) Blood Urea Nitrogen 20 mg/dL (7-23) Creatinine 1.3 mg/dL (0.7-1.2) H Estimat Glomerular Filtration Rate > 60 mL/min (>60) Glucose Level 141 mg/dL (74-106) H Calcium Level 9.4 mg/dL (8.6-10.2) Total Bilirubin 0.4 mg/dL (0.0-1.2) Aspartate Amino Transf (AST/SGOT) 16 U/L (5-40) Alanine Aminotransferase (ALT/SGPT) 11 U/L (3-41) Alkaline Phosphatase 96 U/L (40-129) Total Protein 7.7 g/dL (6.6-8.7) Albumin 4.3 g/dL (3.5-5.2) Globulin 3.4 g/dL Albumin/Globulin Ratio 1.2 (1.0-2.7) Lipase 17 U/L (< 60) Serum Alcohol < 10 mg/dL Urine Color Yellow Urine Appearance Clear Urine pH 6 (4.5-8.0) Urine Specific [place] 1.020 (1.005-1.035) Urine Protein Negative (NEGATIVE) Urine Glucose (UA) Negative (NEGATIVE) Urine Ketones Negative (NEGATIVE) Urine Occult Blood Negative (NEGATIVE) Urine Nitrite Negative (NEGATIVE) Urine Bilirubin Negative (NEGATIVE) Urine Urobilinogen 1 MG/DL (0.0-1.0) H Urine Leukocyte Esterase Negative (NEGATIVE) Urine Opiates Screen Negative (NEGATIVE) Urine Barbiturates Screen Negative (NEGATIVE) Phencyclidine (PCP) Screen Negative (NEGATIVE) Urine Amphetamines Screen Negative (NEGATIVE) Urine Benzodiazepines Screen Negative (NEGATIVE) Urine Cocaine Screen Positive (NEGATIVE) H Urine Marijuana (THC) Screen Negative (NEGATIVE) Prothrombin Time 10.1 SEC (9.30-11.50) Prothromb Time International Ratio 1.0 (0.9-1.1) General Appearance: well appearing, no apparent distress, alert, thin Head: normocephalic EENT: normal ENT inspection Neck: supple Respiratory: normal breath sounds, no respiratory distress Cardiovascular: normal rate Gastrointestinal: other - incision site mid abdomen Rectal: deferred Genitourinary: no CVA tenderness Musculoskeletal: back normal Neurologic: normal inspection, alert, oriented x3, responsive Psychiatric: normal inspection, judgement/insight normal, memory normal Skin: normal inspection, normal color, no rash Lymphatic: normal inspection, no adenopathy Current Medications Current Medications Medications (Trade) Dose Ordered Sig/Jevon Route PRN Reason Start Time Stop Time Status Last Admin Dose Admin Acetaminophen (Tylenol) 650 mg Q4H PRN ORAL fever>100.5 01/11/17 09:00 02/10/17 08:59 Acetaminophen (Tylenol) 650 mg Q4H PRN RECTAL FEVER>100.5 01/11/17 09:00 02/10/17 08:59 Al Hydroxide/Mg Hydroxide (Mylanta II) 30 ml Q6H PRN ORAL dyspepsia 01/11/17 09:00 02/10/17 08:59 Cefazolin Sodium/ Dextrose (Ancef/D5W) 55 ml @ 110 mls/hr Q8H IV 01/11/17 18:00 01/12/17 03:00 Dextrose STAT PRN IV Hypoglycemia 01/11/17 09:00 02/10/17 08:59 Dextrose/ Electrolytes (D5 0.45%NS W/ KCl 20mEq) 1,000 ml @ 100 mls/hr Q10H IV 01/11/17 10:00 02/10/17 09:59 01/11/17 09:48 Diphenhydramine HCl (Benadryl) 25 mg Q6H PRN ORAL Itching/Pruritis 01/11/17 09:00 02/10/17 08:59 Famotidine 20 mg 20 mg Q12HR IVP 01/11/17 21:00 02/10/17 20:59 Heparin Sodium (Porcine) (Heparin 5000 units/ml) 5,000 units EVERY 12 HOURS SUBQ 01/11/17 09:00 02/10/17 08:59 Hydromorphone HCl (Dilaudid) 0.5 mg Q3H PRN IVP Pain Score 1-3 01/11/17 09:00 01/18/17 08:59 Hydromorphone HCl (Dilaudid) 1 mg Q3H PRN IVP pain score 4-6 01/11/17 09:00 01/18/17 08:59 Hydromorphone HCl (Dilaudid) 2 mg Q3H PRN IVP pain score 7-10 01/11/17 09:00 01/18/17 08:59 Metoclopramide HCl (Reglan) 10 mg Q6H PRN IVP Nausea & Vomiting 01/11/17 09:30 02/10/17 09:29 Morphine Sulfate (Morphine Sulfate) 2 mg Q4H PRN IVP severe Pain (Pain Scale 7-10) 01/11/17 09:00 01/18/17 08:59 Nitroglycerin (Ntg) 0.4 mg Q5M X 3 DOSES PRN SL Prn Chest Pain 01/11/17 09:00 02/10/17 08:59 Ondansetron HCl (Zofran) 4 mg Q6H PRN IVP Nausea & Vomiting 01/11/17 09:00 02/10/17 08:59 Piperacillin Sod/ Tazobactam Sod 3.375 gm/Dextrose 110 ml @ 27.5 mls/hr EVERY 8 HOURS IVPB 01/11/17 14:00 01/16/17 13:59 01/11/17 13:29 Polyethylene Glycol (Miralax) 17 gm HSPRN PRN ORAL Constipation 01/11/17 21:00 02/10/17 20:59 Temazepam (Restoril) 15 mg HSPRN PRN ORAL Insomnia 01/11/17 21:00 01/18/17 20:59 GI: Plan Problems: (1) Perforated abdominal viscus (2) Protein-calorie malnutrition, severe (3) GERD (gastroesophageal reflux disease) (4) Gastritis (5) Cocaine abuse (6) Anemia (7) Gastritis Plan Endoscopy Procedure Note Indication for Procedure: anemia Procedures Performed: EGD Operative Findings/Diagnosis: ABHILASH Hill - Jun 23, 2016 10:[address] reviewed >> Pneumoperitoneum compatible with acute/recent bowel perforation, site and etiology indeterminate, see full report. fu surgical recs NPO + IVFs cont NGT to LIS ppi BID monitor H&H, transfuse prn pain mgmt fu labs Discussed with Dr. Castellon. Thank you for referring this patient, we will follow. Maria A Zheng N.P. Jan 11, 2017 14:26
[2017-01-11] MEDS ORDERED: D5 1/2NS 1,000 ML IV SCH (17:40)
[2017-01-11] MEDS: D5 1/2NS w/KCl 20mEq 1,000 ML IV SCH (17:52)
[2017-01-11] MEDS: ceFAZolin sod 1 GM in D5W 55 ML IV SCH (17:53)
[2017-01-11] MEDS ORDERED: Famotidine 20 MG/ 2ML VIAL IVP SCH (21:00)
[2017-01-11] MEDS: Esomeprazole sodium 40mg vial IVP SCH (21:00)
[2017-01-11] MEDS ORDERED: Miralax 17gm pkt ORAL PRN ×2 (21:00)
[2017-01-11] MEDS ORDERED: Esomeprazole sodium 40mg vial IVP SCH (21:00)
[2017-01-11] MEDS: Heparin 5000 units/ml inj SUBQ SCH (21:02)
[2017-01-11] MEDS: Piperacillin/Tazobactam 3.375 GM in D5W 110 ML IVPB SCH (22:20)
--- NOTE | 2017-01-11 23:45 | Consultation ---
DATE OF CONSULTATION: 01/11/2017 INFECTIOUS DISEASE CONSULT This consult is for coverage of Dr. Dean. PRIMARY ATTENDING PHYSICIAN: Briseyda Kessler M.D. REASON FOR CONSULT: Peritonitis and perforated peptic ulcer. HISTORY OF PRESENT ILLNESS: The patient is a 61-year-old male, admitted today from home because of sudden onset of severe abdominal pain. The patient had a previous history of peptic ulcer disease and esophagitis. CT scan of the abdomen and pelvis showed normal peritoneum. The patient had an exploratory laparotomy that showed duodenal perforation and he had pyloroplasty and castillo patch. The patient is not a good source of history. PAST MEDICAL HISTORY: Significant for peptic ulcer disease, gastroesophageal reflux disease, cocaine abuse, and nicotine dependence. ALLERGIES: No known drug allergies. MEDICATIONS: MiraLax, Pepcid, temazepam, cefazolin, metoclopramide, heparin, gets a dose of Zosyn, morphine, diphenhydramine, Mylanta, and hydromorphone. REVIEW OF SYSTEMS: Unobtainable. Seems to be drowsy and slightly confused. PHYSICAL EXAMINATION: GENERAL APPEARANCE: No acute distress. VITAL SIGNS: Temperature 97.5 degrees, T-max 99.7 degrees, pulse 90, and blood pressure is 138/81. HEAD AND NECK: [place] conjunctivae. HEART: Regular. LUNGS: Clear. ABDOMEN: He has dressing. EXTREMITIES: No edema. LABORATORY AND DIAGNOSTIC DATA: WBC is 19.7, hemoglobin 14.5, hematocrit 44.9, and platelets 242,000. Sodium 140, potassium 4.4, chloride 100, bicarbonate 26, BUN 20, creatinine 1.3, and glucose is 141. IMPRESSION: 1. Perforated peptic ulcer. 2. Duodenal ulcer with subsequent peritonitis. 3. Status post exploratory laparotomy, pyloroplasty, and castillo patch. 4. The patient has a history of cocaine abuse and nicotine dependence. RECOMMENDATION: Continue with Zosyn. We will follow up the cultures. At the end of my exam, I thank Dr. Kessler for involving me in the care of this patient. Richard Webster M.D. DR: NARA JOB#: [id number] CC:
[2017-01-12] VITALS: BP 152/94
[2017-01-12] MEDS: D5 1/2NS w/KCl 20mEq 1,000 ML IV SCH ×3 (03:00→23:45)
[2017-01-12] MEDS: ceFAZolin sod 1 GM in D5W 55 ML IV SCH (03:00)
[2017-01-12 04:00] VITALS: BP 145/87
[2017-01-12] MEDS: Piperacillin/Tazobactam 3.375 GM in D5W 110 ML IVPB SCH ×3 (05:25→21:20)
[2017-01-12 07:03] LABS: MEAN CORPUSCULAR HEMOGLOBIN 27.9 PG (27.0-31.0); MEAN CORPUSCULAR HGB CONC 33.5 G/DL (32.0-36.0); MEAN CORPUSCULAR VOLUME 83 FL (80-99); PLATELET COUNT 288 K/UL (150-450); RED BLOOD COUNT 4.03 M/UL (4.70-6.10); RED CELL DISTRIBUTION WIDTH 20.2 % (11.6-14.8); WHITE BLOOD COUNT 15.8 K/UL (4.8-10.8)
[2017-01-12 07:04] LABS: CHLORIDE 102 mEQ/L (98-107); POTASSIUM 4.4 mEQ/L (3.4-4.9); SODIUM 136 mEQ/L (135-145)
[2017-01-12 07:36] LABS: ALANINE AMINOTRANSFERASE 9 U/L (3-41); ALBUMIN/GLOBULIN RATIO 1.1 (1.0-2.7); AMYLASE 45 U/L (10-110); ANION GAP 9 (5-15); ASPARTATE AMINO TRANSFERASE 16 U/L (5-40); CALCIUM 8.6 mg/dL (8.6-10.2); CARBON DIOXIDE 25 mEQ/L (20-30); CREATININE 1.3 mg/dL (0.7-1.2); GLOMERULAR FILTRATION RATE > 60 mL/min (>60); HEMOLYSIS 7; LIPASE 12 U/L (< 60); TOTAL PROTEIN 6.3 g/dL (6.6-8.7)
[2017-01-12 08:00] VITALS: BP 142/88
[2017-01-12] MEDS ORDERED: NS 275ml ONE (08:44)
[2017-01-12] MEDS ORDERED: Tubing IV Secondary IV ONE (08:44)
[2017-01-12 09:10] LABS: BAND NEUTROPHILS % (MANUAL) 2 % (0-8); BASOPHILS % (MANUAL) 0 % (0-2); EOSINOPHILS % (MANUAL) 1 % (0-3); LYMPHOCYTES % (MANUAL) 5 % (20-45); NEUTROPHILS % (MANUAL) 84 % (45-75); PLATELET ESTIMATE ADEQUATE; PLATELET MORPHOLOGY NORMAL; TOTAL CELLS COUNTED 100
[2017-01-12 09:11] LABS: ANISOCYTOSIS 1+; MICROCYTES 1+; POIKILOCYTOSIS 1+; TARGET CELLS 1+
[2017-01-12] MEDS: Heparin 5000 units/ml inj SUBQ SCH ×2 (09:38→21:19)
[2017-01-12] MEDS: Esomeprazole sodium 40mg vial IVP SCH ×2 (09:59→21:19)
[2017-01-12] MEDS ORDERED: DuoNeb 0.5-3(2.5)mg/3ml neb HHN PRN (10:00)
--- NOTE | 2017-01-12 11:29 | General Surgery Progress Note ---
General Surgery-Progress Note Subjective Procedure Performed exploratory laparotomy, pyloroplasty with Alfonso patch Symptoms: improved Objective Last 24 Hour Vital Signs Date Time Temp Pulse Resp B/P (MAP) Pulse Ox O2 Delivery O2 Flow Rate FiO2 01/12/17 10:32 84 17 98 Nasal Cannula 2.0 01/12/17 10:26 82 17 Nasal Cannula 2.0 01/12/17 10:26 94 Nasal Cannula 2.0 01/12/17 10:26 82 17 94 Nasal Cannula 2.0 01/12/17 10:26 Nasal Cannula 2.0 01/12/17 08:00 99.3 74 19 142/88 97 Nasal Cannula 01/12/17 04:00 97.4 83 19 145/87 94 Nasal Cannula 2.0 01/12/17 00:00 97.3 83 19 152/94 96 Nasal Cannula 2.0 01/11/17 20:09 97.3 81 20 155/91 96 Nasal Cannula 2.0 01/11/17 19:30 97 Nasal Cannula 2.0 01/11/17 19:30 Nasal Cannula 2.0 28 01/11/17 16:00 97.7 80 20 157/95 97 Nasal Cannula 2.0 01/11/17 12:00 97.3 91 22 138/90 96 Nasal Cannula 3.0 01/11/17 12:00 91 I&O Intake and Output 01/12/17 01/13/17 19:00 07:00 Intake Total 300 ml Output Total 300 ml Balance 0 ml Intake IV Total 300 ml Output Urine Total 300 ml # Voids 1 Dressing: bloody Drains: yahir Respiratory: clear Abdomen: soft, flat, tenderness, absent bowel sounds Extremities: no tenderness Laboratory Tests Test 01/12/17 05:25 White Blood Count 15.8 K/UL (4.8-10.8) H Red Blood Count 4.03 M/UL (4.70-6.10) L Hemoglobin 11.2 G/DL (14.2-18.0) L Hematocrit 33.5 % (42.0-52.0) L Mean Corpuscular Volume 83 FL (80-99) Mean Corpuscular Hemoglobin 27.9 PG (27.0-31.0) Mean Corpuscular Hemoglobin Concent 33.5 G/DL (32.0-36.0) Red Cell Distribution Width 20.2 % (11.6-14.8) H Platelet Count 288 K/UL (150-450) Mean Platelet Volume 7.0 FL (6.5-10.1) Neutrophils (%) (Auto) % (45.0-75.0) Lymphocytes (%) (Auto) % (20.0-45.0) Monocytes (%) (Auto) % (1.0-10.0) Eosinophils (%) (Auto) % (0.0-3.0) Basophils (%) (Auto) % (0.0-2.0) Differential Total Cells Counted 100 Neutrophils % (Manual) 84 % (45-75) H Lymphocytes % (Manual) 5 % (20-45) L Monocytes % (Manual) 8 % (1-10) Eosinophils % (Manual) 1 % (0-3) Basophils % (Manual) 0 % (0-2) Band Neutrophils 2 % (0-8) Platelet Estimate Adequate Platelet Morphology Normal Poikilocytosis 1+ Anisocytosis 1+ Microcytosis 1+ Target Cells 1+ Activated Partial Thromboplast Time 33 SEC (23-33) Sodium Level 136 mEQ/L (135-145) Potassium Level 4.4 mEQ/L (3.4-4.9) Chloride Level 102 mEQ/L (98-107) Carbon Dioxide Level 25 mEQ/L (20-30) Anion Gap 9 (5-15) Blood Urea Nitrogen 14 mg/dL (7-23) Creatinine 1.3 mg/dL (0.7-1.2) H Estimat Glomerular Filtration Rate > 60 mL/min (>60) Glucose Level 91 mg/dL (74-106) Calcium Level 8.6 mg/dL (8.6-10.2) Total Bilirubin 0.9 mg/dL (0.0-1.2) Aspartate Amino Transf (AST/SGOT) 16 U/L (5-40) Alanine Aminotransferase (ALT/SGPT) 9 U/L (3-41) Alkaline Phosphatase 73 U/L (40-129) Total Protein 6.3 g/dL (6.6-8.7) L Albumin 3.4 g/dL (3.5-5.2) L Globulin 2.9 g/dL Albumin/Globulin Ratio 1.1 (1.0-2.7) Amylase Level 45 U/L (10-110) Lipase 12 U/L (< 60) HIV (1&2) Antibody Rapid Negative (NEGATIVE) Assessment Post-op Diagnosis perforated peptic ulcer Plan Additional Comments continue NPO AGNIESZKA PEREZ Jan 12, 2017 11:29
--- NOTE | 2017-01-12 11:54 | GI Progress Note ---
Assessment/Plan Problems: (1) Gastritis ICD Codes: K29.70 - Gastritis, unspecified, without bleeding SNOMED: 7661916 (2) Anemia ICD Codes: D64.9 - Anemia, unspecified SNOMED: 918862210 (3) Perforated abdominal viscus SNOMED: 293962470 (4) Protein-calorie malnutrition, severe ICD Codes: E43 - Unspecified severe protein-calorie malnutrition SNOMED: 979355964 (5) GERD (gastroesophageal reflux disease) ICD Codes: K21.9 - Gastro-esophageal reflux disease without esophagitis SNOMED: 125306377 (6) Gastritis ICD Codes: K29.70 - Gastritis, unspecified, without bleeding SNOMED: 4426582 (7) Cocaine abuse ICD Codes: F14.10 - Cocaine abuse, uncomplicated SNOMED: 89564028, 052442870 Status: unchanged Status Narrative Discussed with Dr. Umanzor. Assessment/Plan Endoscopy Procedure Note Indication for Procedure: anemia Procedures Performed: EGD Operative Findings/Diagnosis: ABHILASH Hill - Jun 23, 2016 10:[address] reviewed >> Pneumoperitoneum compatible with acute/recent bowel perforation, site and etiology indeterminate, see full report. fu surgical recs diet per surgery NPO + IVFs cont NGT to LIS ppi BID monitor H&H, transfuse prn pain mgmt fu labs Subjective Subjective hungry wants NGT out Objective Last 24 Hour Vital Signs Date Time Temp Pulse Resp B/P (MAP) Pulse Ox O2 Delivery O2 Flow Rate FiO2 01/12/17 11:47 99.3 01/12/17 10:32 84 17 98 Nasal Cannula 2.0 01/12/17 10:26 82 17 Nasal Cannula 2.0 01/12/17 10:26 94 Nasal Cannula 2.0 01/12/17 10:26 82 17 94 Nasal Cannula 2.0 01/12/17 10:26 Nasal Cannula 2.0 01/12/17 08:00 99.3 74 19 142/88 97 Nasal Cannula 01/12/17 04:00 97.4 83 19 145/87 94 Nasal Cannula 2.0 01/12/17 00:00 97.3 83 19 152/94 96 Nasal Cannula 2.0 01/11/17 20:09 97.3 81 20 155/91 96 Nasal Cannula 2.0 8/22/17 19:30 97 Nasal Cannula 2.0 01/11/17 19:30 Nasal Cannula 2.0 28 01/11/17 16:00 97.7 80 20 157/95 97 Nasal Cannula 2.0 01/11/17 12:00 97.3 91 22 138/90 96 Nasal Cannula 3.0 01/11/17 12:00 91 Intake and Output 01/12/17 01/13/17 19:00 07:00 Intake Total 400 ml Output Total 300 ml Balance 100 ml Intake IV Total 400 ml Output Urine Total 300 ml # Voids 1 Laboratory Tests Test 01/12/17 05:25 White Blood Count 15.8 K/UL (4.8-10.8) H Red Blood Count 4.03 M/UL (4.70-6.10) L Hemoglobin 11.2 G/DL (14.2-18.0) L Hematocrit 33.5 % (42.0-52.0) L Mean Corpuscular Volume 83 FL (80-99) Mean Corpuscular Hemoglobin 27.9 PG (27.0-31.0) Mean Corpuscular Hemoglobin Concent 33.5 G/DL (32.0-36.0) Red Cell Distribution Width 20.2 % (11.6-14.8) H Platelet Count 288 K/UL (150-450) Mean Platelet Volume 7.0 FL (6.5-10.1) Neutrophils (%) (Auto) % (45.0-75.0) Lymphocytes (%) (Auto) % (20.0-45.0) Monocytes (%) (Auto) % (1.0-10.0) Eosinophils (%) (Auto) % (0.0-3.0) Basophils (%) (Auto) % (0.0-2.0) Differential Total Cells Counted 100 Neutrophils % (Manual) 84 % (45-75) H Lymphocytes % (Manual) 5 % (20-45) L Monocytes % (Manual) 8 % (1-10) Eosinophils % (Manual) 1 % (0-3) Basophils % (Manual) 0 % (0-2) Band Neutrophils 2 % (0-8) Platelet Estimate Adequate Platelet Morphology Normal Poikilocytosis 1+ Anisocytosis 1+ Microcytosis 1+ Target Cells 1+ Activated Partial Thromboplast Time 33 SEC (23-33) Sodium Level 136 mEQ/L (135-145) Potassium Level 4.4 mEQ/L (3.4-4.9) Chloride Level 102 mEQ/L (98-107) Carbon Dioxide Level 25 mEQ/L (20-30) Anion Gap 9 (5-15) Blood Urea Nitrogen 14 mg/dL (7-23) Creatinine 1.3 mg/dL (0.7-1.2) H Estimat Glomerular Filtration Rate > 60 mL/min (>60) Glucose Level 91 mg/dL (74-106) Calcium Level 8.6 mg/dL (8.6-10.2) Total Bilirubin 0.9 mg/dL (0.0-1.2) Aspartate Amino Transf (AST/SGOT) 16 U/L (5-40) Alanine Aminotransferase (ALT/SGPT) 9 U/L (3-41) Alkaline Phosphatase 73 U/L (40-129) Total Protein 6.3 g/dL (6.6-8.7) L Albumin 3.4 g/dL (3.5-5.2) L Globulin 2.9 g/dL Albumin/Globulin Ratio 1.1 (1.0-2.7) Amylase Level 45 U/L (10-110) Lipase 12 U/L (< 60) HIV (1&2) Antibody Rapid Negative (NEGATIVE) Height (Feet): 5 Height (Inches): 9.00 Weight (Pounds): 150 General Appearance: no apparent distress, alert, thin Cardiovascular: normal rate Respiratory/Chest: normal breath sounds, no respiratory distress Abdominal Exam: other - NGT Maria A Zheng N.P. Jan 12, 2017 11:54
[2017-01-12 12:00] VITALS: BP 148/98
--- NOTE | 2017-01-12 15:08 | Pulmonology Progress Note ---
Assessment/Plan Problems: (1) Perforated abdominal viscus (2) Protein-calorie malnutrition, severe (3) Cocaine abuse Assessment/Plan NG suction NPO Iv fluids analgesics Haldol for agitation Subjective ROS Limited/Unobtainable: No Allergies: Coded Allergies: No Known Allergies (Unverified , 05/07/14) Objective Last 24 Hour Vital Signs Date Time Temp Pulse Resp B/P (MAP) Pulse Ox O2 Delivery O2 Flow Rate FiO2 01/12/17 11:47 99.3 01/12/17 10:32 84 17 98 Nasal Cannula 2.0 01/12/17 10:26 82 17 Nasal Cannula 2.0 01/12/17 10:26 94 Nasal Cannula 2.0 01/12/17 10:26 82 17 94 Nasal Cannula 2.0 01/12/17 10:26 Nasal Cannula 2.0 01/12/17 08:00 99.3 74 19 142/88 97 Nasal Cannula 01/12/17 04:00 97.4 83 19 145/87 94 Nasal Cannula 2.0 01/12/17 00:00 97.3 83 19 152/94 96 Nasal Cannula 2.0 01/11/17 20:09 97.3 81 20 155/91 96 Nasal Cannula 2.0 01/11/17 19:30 97 Nasal Cannula 2.0 01/11/17 19:30 Nasal Cannula 2.0 28 01/11/17 16:00 97.7 80 20 157/95 97 Nasal Cannula 2.0 Intake and Output 01/12/17 01/13/17 19:00 07:00 Intake Total 600 ml Output Total 300 ml Balance 300 ml Intake IV Total 600 ml Output Urine Total 300 ml # Voids 1 General Appearance: WD/WN HEENT: normocephalic, mucous membranes moist Respiratory/Chest: chest wall non-tender, normal breath sounds Cardiovascular: normal peripheral pulses, regular rhythm Abdomen: no organomegaly, non distended Extremities: no cyanosis, no clubbing Laboratory Tests 01/12/17 05:25: White Blood Count 15.8H, Red Blood Count 4.03L, Hemoglobin 11.2L, Hematocrit 33.5L, Mean Corpuscular Volume 83, Mean Corpuscular Hemoglobin 27.9, Mean Corpuscular Hemoglobin Concent 33.5, Red Cell Distribution Width 20.2H, Platelet Count 288, Mean Platelet Volume 7.0, Neutrophils (%) (Auto) , Lymphocytes (%) (Auto) , Monocytes (%) (Auto) , Eosinophils (%) (Auto) , Basophils (%) (Auto) , Differential Total Cells Counted 100, Neutrophils % ( Manual) 84H, Lymphocytes % (Manual) 5L, Monocytes % (Manual) 8, Eosinophils % ( Manual) 1, Basophils % (Manual) 0, Band Neutrophils 2, Platelet Estimate Adequate, Platelet Morphology Normal, Poikilocytosis 1+, Anisocytosis 1+, Microcytosis 1+, Target Cells 1+, Activated Partial Thromboplast Time 33, Sodium Level 136, Potassium Level 4.4, Chloride Level 102, Carbon Dioxide Level 25, Anion Gap 9, Blood Urea Nitrogen 14, Creatinine 1.3H, Estimat Glomerular Filtration Rate > 60, Glucose Level 91, Calcium Level 8.6, Total Bilirubin 0.9, Aspartate Amino Transf (AST/SGOT) 16, Alanine Aminotransferase (ALT/SGPT) 9, Alkaline Phosphatase 73, Total Protein 6.3L, Albumin 3.4L, Globulin 2.9, Albumin /Globulin Ratio 1.1, Amylase Level 45, Lipase 12, HIV (1&2) Antibody Rapid Negative Current Medications Medications (Trade) Dose Ordered Sig/Jevon Route PRN Reason Start Time Stop Time Status Last Admin Dose Admin Acetaminophen (Tylenol) 650 mg Q4H PRN ORAL fever>100.5 01/11/17 17:00 02/10/17 16:59 Acetaminophen (Tylenol) 650 mg Q4H PRN RECTAL FEVER>100.5 01/11/17 17:00 02/10/17 16:59 Al Hydroxide/Mg Hydroxide (Mylanta II) 30 ml Q6H PRN ORAL dyspepsia 01/11/17 17:00 02/10/17 16:59 Albuterol/ Ipratropium (DuoNeb 0.5-3(2.5)mg/3ml) 3 ml Q8H PRN HHN Cough/Wheezing/SOB 01/12/17 10:00 01/17/17 09:59 01/12/17 10:26 Dextrose (Dextrose 50%) STAT PRN IV Hypoglycemia 01/11/17 17:00 02/10/17 16:59 Dextrose/ Electrolytes 1,000 ml @ 100 mls/hr Q10H IV 01/11/17 17:30 02/10/17 17:29 01/12/17 13:35 Diphenhydramine HCl (Benadryl) 25 mg Q6H PRN ORAL Itching/Pruritis 01/11/17 17:00 02/10/17 16:59 Esomeprazole Sodium (Nexium I.v.) 40 mg Q12HR IVP 01/11/17 21:00 02/10/17 20:59 01/12/17 09:59 Heparin Sodium (Porcine) (Heparin 5000 units/ml) 5,000 units EVERY 12 HOURS SUBQ 01/11/17 21:00 02/10/17 20:59 01/12/17 09:38 Hydromorphone HCl (Dilaudid) 0.5 mg Q3H PRN IVP Pain Score 1-3 01/11/17 17:00 01/18/17 16:59 Hydromorphone HCl (Dilaudid) 1 mg Q3H PRN IVP pain score 4-6 01/11/17 18:00 01/18/17 17:59 Hydromorphone HCl (Dilaudid) 2 mg Q3H PRN IVP pain score 7-10 01/11/17 17:00 01/18/17 16:59 01/12/17 11:17 Metoclopramide HCl (Reglan) 10 mg Q6H PRN IVP Nausea & Vomiting 01/11/17 17:00 02/10/17 16:59 Morphine Sulfate (Morphine Sulfate) 2 mg Q4H PRN IVP Breakthrough Pain 01/11/17 17:00 01/18/17 16:59 Nitroglycerin (Ntg) 0.4 mg Q5M X 3 DOSES PRN SL Prn Chest Pain 01/11/17 17:00 02/10/17 16:59 Ondansetron HCl (Zofran) 4 mg Q6H PRN IVP Nausea & Vomiting 01/11/17 17:00 02/10/17 16:59 01/12/17 09:34 Piperacillin Sod/ Tazobactam Sod 3.375 gm/Dextrose 110 ml @ 27.5 mls/hr EVERY 8 HOURS IVPB 01/11/17 22:00 01/16/17 21:59 01/12/17 13:35 Polyethylene Glycol (Miralax) 17 gm HSPRN PRN ORAL Constipation 01/11/17 21:00 9/21/17 20:59 Temazepam (Restoril) 15 mg HSPRN PRN ORAL Insomnia 01/11/17 17:00 01/18/17 16:59 DILIP RASHEED Jan 12, 2017 15:08
[2017-01-12] MEDS ORDERED: Haloperidol 5mg/ml Inj IVPB PRN (15:15)
--- NOTE | 2017-01-12 15:17 | 48 Hour Post Anesthesia Eval ---
Post Anesthesia Evaluation Procedure: Emercency exploratory laparotomy secondary to perforated ulcer Date of Evaluation: Jan 12, 2017 Time of Evaluation: 15:16 Blood Pressure Systolic: 146 0: 82 Pulse Rate: 74 Respiratory Rate: 20 Temperature (Fahrenheit): 97.6 O2 Sat by Pulse Oximetry: 98 Airway: patent Nausea: No Vomiting: No Pain Intensity: 3 Hydration Status: adequate Cardiopulmonary Status: stable Mental Status/LOC: patient returned to baseline Follow-up Care/Observations: n/a Post-Anesthesia Complications: none Follow-up care needed: N/A JOSE POLLARD M.D. Jan 12, 2017 15:17
[2017-01-12] MEDS ORDERED: Haloperidol 5mg/ml Inj IM PRN (15:30)
--- NOTE | 2017-01-12 15:31 | Cardiology Report ---
APPROVED REPORT EKG Measurement Heart [id number] Normal sinus rhythm Left axis deviation Low voltage QRS Inferior infarct, age undetermined Cannot rule out Anteroseptal infarct, age undetermined Abnormal ECG
[2017-01-12 16:00] VITALS: BP 137/89
--- NOTE | 2017-01-12 16:45 | Infectious Diseases Prog Note ---
Assessment/Plan Assessment/Plan Assessment 61 y/o AAM s/p perforation requiring exploratory laparotomy, pyloroplasty with Alfonso patch on 01/11/17. 1. perforated peptic ulcer 2. duodenal ulcer with secondary bacterial peritonitis. no operative cultures are pending. 3. s/p exploratory laparotomy, pyloroplasty, and alfonso patch. 4. low grade fevers, resolved 5. Leukocytosis, improved slightly 6. h/o cocaine abuse, nicotine dependence 7. Hiv Ab negative RECOMMENDATION: --Continue zosyn 3.375gm IV q8hr extended infusion, D#1 s/p cefazolin x1 (01/11) --monitor temp curve --monitor WBC --Once he is tolerating PO and WBC normalized, will switch to PO cipro and flagyl to complete 10 day post-operative course. I am covering for Dr. Dean. Subjective Constitutional: Reports: no symptoms Respiratory: Reports: no symptoms Cardiovascular: Reports: no symptoms Gastrointestinal/Abdominal: Reports: other - wants NGT out Genitourinary: Reports: no symptoms Skin: Reports: no symptoms Hematologic: Reports: no symptoms Allergies: Coded Allergies: No Known Allergies (Unverified , 05/07/14) Objective Vital Signs Last 24 Hour Vital Signs Date Time Temp Pulse Resp B/P (MAP) Pulse Ox O2 Delivery O2 Flow Rate FiO2 01/12/17 16:00 97.8 75 19 137/89 97 Nasal Cannula 01/12/17 15:17 74 20 98 01/12/17 12:00 98.4 90 19 148/98 98 Nasal Cannula 01/12/17 11:47 99.3 01/12/17 10:32 84 17 98 Nasal Cannula 2.0 01/12/17 10:26 82 17 Nasal Cannula 2.0 01/12/17 10:26 94 Nasal Cannula 2.0 01/12/17 10:26 82 17 94 Nasal Cannula 2.0 01/12/17 10:26 Nasal Cannula 2.0 01/12/17 08:00 99.3 74 19 142/88 97 Nasal Cannula 01/12/17 04:00 97.4 83 19 145/87 94 Nasal Cannula 2.0 01/12/17 00:00 97.3 83 19 152/94 96 Nasal Cannula 2.0 01/11/17 20:09 97.3 81 20 155/91 96 Nasal Cannula 2.0 01/11/17 19:30 97 Nasal Cannula 2.0 01/11/17 19:30 Nasal Cannula 2.0 28 Height (Feet): 5 Height (Inches): 9.00 Weight (Pounds): 150 Objective gen: sleeping comfortably heent: Ngt in place, draining scant bilious fluid cv; rrr lungs: cta b abd: soft, nt. abd dressing s/p ex lap in place ext: thin, no edema skin: no rash, no petechiae. peripheral IV c/d/i. no micro data. Patient : KELLY TAYLOR Referring Physician: VASILIY CASTILLO M.D. ID Number: [id number] Service Date: 01/11/17 : 1955 Report Date: 01/11/17 Gender: M Accession No.: [id number] Location: Procedure: CT Abdomen Pelvis WO Contrast Indications: Abdominal pain Technique: Continuous helical CT imaging of the abdomen and pelvis was performed with automatic exposure control on a Siemens sensation [address] scanner. Axial, coronal, sagittal images reconstructed at 3 mm slice thickness. No oral or IV contrast was administered per requesting physician's order, no contraindications listed. CTDI volume(s): 10 mGy Total DLP: 495 mGy-cm Findings: Comparison: 06/22/16 Lack of IV and oral contrast, paucity of body fat limit evaluation. Intraperitoneal free air and fluid. Gas in malaika hepatis and left intersegmental fissure. Gastrointestinal tract nondilated. Mural thickening not excludable. Subcentimeter circumscribed low-attenuation focus in hepatic segment 6 unchanged, not further characterizable. Urinary bladder moderately distended with suggestion of mild mural thickening. Small fat-containing umbilical hernia. Scattered arterial mural calcifications. Vascular patency indeterminate. Remainder visualized pelvic anatomy demonstrates no other obvious acute abnormality. Emphysematous changes, interlobular septal thickening/fibrosis, subsegmental parenchymal consolidation in both lung bases. Heart enlarged. Multilevel disc space narrowing with marginal osteophyte formation, vacuum phenomenon lumbar, lower thoracic spine. 1 cm anterior subluxation of L5 on S1. Bilateral pars interarticularis defects at L5. Impression: Pneumoperitoneum compatible with acute/recent bowel perforation, site and etiology indeterminate. Free fluid likely secondary to above No evidence of overt bowel obstruction. Mural thickening not excludable. Stable nonspecific lesion right hepatic lobe Arteriosclerosis Apparent urinary bladder wall thickening--underdistention versus hypertrophy versus cystitis Umbilical hernia Pulmonary bibasal emphysematous changes, interstitial disease/fibrosis, subsegmental atelectasis Degenerative spondylosis L5-S1 grade 1 spondylolisthesis, bilateral spondylolysis This correlates with [facility] preliminary report. Laboratory Tests Test 01/12/17 05:25 White Blood Count 15.8 K/UL (4.8-10.8) H Red Blood Count 4.03 M/UL (4.70-6.10) L Hemoglobin 11.2 G/DL (14.2-18.0) L Hematocrit 33.5 % (42.0-52.0) L Mean Corpuscular Volume 83 FL (80-99) Mean Corpuscular Hemoglobin 27.9 PG (27.0-31.0) Mean Corpuscular Hemoglobin Concent 33.5 G/DL (32.0-36.0) Red Cell Distribution Width 20.2 % (11.6-14.8) H Platelet Count 288 K/UL (150-450) Mean Platelet Volume 7.0 FL (6.5-10.1) Neutrophils (%) (Auto) % (45.0-75.0) Lymphocytes (%) (Auto) % (20.0-45.0) Monocytes (%) (Auto) % (1.0-10.0) Eosinophils (%) (Auto) % (0.0-3.0) Basophils (%) (Auto) % (0.0-2.0) Differential Total Cells Counted 100 Neutrophils % (Manual) 84 % (45-75) H Lymphocytes % (Manual) 5 % (20-45) L Monocytes % (Manual) 8 % (1-10) Eosinophils % (Manual) 1 % (0-3) Basophils % (Manual) 0 % (0-2) Band Neutrophils 2 % (0-8) Platelet Estimate Adequate Platelet Morphology Normal Poikilocytosis 1+ Anisocytosis 1+ Microcytosis 1+ Target Cells 1+ Activated Partial Thromboplast Time 33 SEC (23-33) Sodium Level 136 mEQ/L (135-145) Potassium Level 4.4 mEQ/L (3.4-4.9) Chloride Level 102 mEQ/L (98-107) Carbon Dioxide Level 25 mEQ/L (20-30) Anion Gap 9 (5-15) Blood Urea Nitrogen 14 mg/dL (7-23) Creatinine 1.3 mg/dL (0.7-1.2) H Estimat Glomerular Filtration Rate > 60 mL/min (>60) Glucose Level 91 mg/dL (74-106) Calcium Level 8.6 mg/dL (8.6-10.2) Total Bilirubin 0.9 mg/dL (0.0-1.2) Aspartate Amino Transf (AST/SGOT) 16 U/L (5-40) Alanine Aminotransferase (ALT/SGPT) 9 U/L (3-41) Alkaline Phosphatase 73 U/L (40-129) Total Protein 6.3 g/dL (6.6-8.7) L Albumin 3.4 g/dL (3.5-5.2) L Globulin 2.9 g/dL Albumin/Globulin Ratio 1.1 (1.0-2.7) Amylase Level 45 U/L (10-110) Lipase 12 U/L (< 60) HIV (1&2) Antibody Rapid Negative (NEGATIVE) Current Medications Medications (Trade) Dose Ordered Sig/Jevon Route PRN Reason Start Time Stop Time Status Last Admin Dose Admin Acetaminophen (Tylenol) 650 mg Q4H PRN ORAL fever>100.5 01/11/17 17:00 02/10/17 16:59 Acetaminophen (Tylenol) 650 mg Q4H PRN RECTAL FEVER>100.5 01/11/17 17:00 02/10/17 16:59 Al Hydroxide/Mg Hydroxide (Mylanta II) 30 ml Q6H PRN ORAL dyspepsia 01/11/17 17:00 02/10/17 16:59 Albuterol/ Ipratropium (DuoNeb 0.5-3(2.5)mg/3ml) 3 ml Q8H PRN HHN Cough/Wheezing/SOB 01/12/17 10:00 01/17/17 09:59 01/12/17 10:26 Dextrose (Dextrose 50%) STAT PRN IV Hypoglycemia 01/11/17 17:00 02/10/17 16:59 Dextrose/ Electrolytes 1,000 ml @ 100 mls/hr Q10H IV 01/11/17 17:30 02/10/17 17:29 01/12/17 13:35 Diphenhydramine HCl (Benadryl) 25 mg Q6H PRN ORAL Itching/Pruritis 01/11/17 17:00 02/10/17 16:59 Esomeprazole Sodium (Nexium I.v.) 40 mg Q12HR IVP 01/11/17 21:00 02/10/17 20:59 01/12/17 09:59 Haloperidol Lactate (Haldol) 5 mg Q6H PRN IM Agitation 01/12/17 15:30 02/11/17 15:29 01/12/17 15:28 Heparin Sodium (Porcine) (Heparin 5000 units/ml) 5,000 units EVERY 12 HOURS SUBQ 01/11/17 21:00 02/10/17 20:59 01/12/17 09:38 Hydromorphone HCl (Dilaudid) 0.5 mg Q3H PRN IVP Pain Score 1-3 01/11/17 17:00 01/18/17 16:59 Hydromorphone HCl (Dilaudid) 1 mg Q3H PRN IVP pain score 4-6 01/11/17 18:00 01/18/17 17:59 Hydromorphone HCl (Dilaudid) 2 mg Q3H PRN IVP pain score 7-10 01/11/17 17:00 01/18/17 16:59 01/12/17 11:17 Metoclopramide HCl (Reglan) 10 mg Q6H PRN IVP Nausea & Vomiting 01/11/17 17:00 02/10/17 16:59 Morphine Sulfate (Morphine Sulfate) 2 mg Q4H PRN IVP Breakthrough Pain 01/11/17 17:00 01/18/17 16:59 Nitroglycerin (Ntg) 0.4 mg Q5M X 3 DOSES PRN SL Prn Chest Pain 01/11/17 17:00 02/10/17 16:59 Ondansetron HCl (Zofran) 4 mg Q6H PRN IVP Nausea & Vomiting 01/11/17 17:00 02/10/17 16:59 01/12/17 09:34 Piperacillin Sod/ Tazobactam Sod 3.375 gm/Dextrose 110 ml @ 27.5 mls/hr EVERY 8 HOURS IVPB 01/11/17 22:00 01/16/17 21:59 01/12/17 13:35 Polyethylene Glycol (Miralax) 17 gm HSPRN PRN ORAL Constipation 01/11/17 21:00 02/10/17 20:59 Temazepam (Restoril) 15 mg HSPRN PRN ORAL Insomnia 01/11/17 17:00 01/18/17 16:59 Thee Bergeron M.D. Jan 12, 2017 16:45
[2017-01-12 20:00] VITALS: BP 146/92
[2017-01-13] VITALS: BP 141/85
[2017-01-13 04:00] VITALS: BP 144/93
[2017-01-13] MEDS: Piperacillin/Tazobactam 3.375 GM in D5W 110 ML IVPB SCH ×3 (05:59→22:00)
[2017-01-13 07:21] LABS: MEAN CORPUSCULAR HEMOGLOBIN 27.2 PG (27.0-31.0); MEAN CORPUSCULAR HGB CONC 32.3 G/DL (32.0-36.0); MEAN CORPUSCULAR VOLUME 84 FL (80-99); MEAN PLATELET VOLUME 7.4 FL (6.5-10.1); PLATELET COUNT 289 K/UL (150-450); RED BLOOD COUNT 4.15 M/UL (4.70-6.10); RED CELL DISTRIBUTION WIDTH 19.2 % (11.6-14.8); WHITE BLOOD COUNT 14.3 K/UL (4.8-10.8)
[2017-01-13 07:22] LABS: ANION GAP 11 (5-15); CARBON DIOXIDE 27 mEQ/L (20-30); CHLORIDE 98 mEQ/L (98-107); CREATININE 1.1 mg/dL (0.7-1.2); GLOMERULAR FILTRATION RATE > 60 mL/min (>60); HEMOLYSIS 1; POTASSIUM 4.1 mEQ/L (3.4-4.9); SODIUM 136 mEQ/L (135-145)
[2017-01-13 08:22] VITALS: BP 149/98
[2017-01-13 08:54] LABS: BAND NEUTROPHILS % (MANUAL) 0 % (0-8); BASOPHILS % (MANUAL) 0 % (0-2); EOSINOPHILS % (MANUAL) 0 % (0-3); LYMPHOCYTES % (MANUAL) 10 % (20-45); NEUTROPHILS % (MANUAL) 85 % (45-75); PLATELET ESTIMATE ADEQUATE; PLATELET MORPHOLOGY NORMAL; TOTAL CELLS COUNTED 100
[2017-01-13 08:55] LABS: ANISOCYTOSIS 2+; HYPOCHROMASIA 1+
[2017-01-13 08:56] LABS: TARGET CELLS OCCASIONAL
[2017-01-13 08:57] LABS: MICROCYTES 1+
[2017-01-13] MEDS: D5 1/2NS w/KCl 20mEq 1,000 ML IV SCH ×2 (09:28→19:30)
[2017-01-13] MEDS: Esomeprazole sodium 40mg vial IVP SCH ×2 (09:28→22:44)
[2017-01-13] MEDS: Heparin 5000 units/ml inj SUBQ SCH ×2 (09:29→21:41)
--- NOTE | 2017-01-13 10:23 | GI Progress Note ---
Assessment/Plan Problems: (1) Gastritis ICD Codes: K29.70 - Gastritis, unspecified, without bleeding SNOMED: 1693607 (2) Anemia ICD Codes: D64.9 - Anemia, unspecified SNOMED: 811843615 (3) Perforated abdominal viscus SNOMED: 029182201 (4) Protein-calorie malnutrition, severe ICD Codes: E43 - Unspecified severe protein-calorie malnutrition SNOMED: 303496422 (5) GERD (gastroesophageal reflux disease) ICD Codes: K21.9 - Gastro-esophageal reflux disease without esophagitis SNOMED: 298538589 (6) Gastritis ICD Codes: K29.70 - Gastritis, unspecified, without bleeding SNOMED: 7391295 (7) Cocaine abuse ICD Codes: F14.10 - Cocaine abuse, uncomplicated SNOMED: 11370466, 797146411 Status: stable, progressing Status Narrative Discussed with Dr. Umanzor. Assessment/Plan Endoscopy Procedure Note Indication for Procedure: anemia Procedures Performed: EGD Operative Findings/Diagnosis: ABHILASH Hill - Jun 23, 2016 10:[address] reviewed >> Pneumoperitoneum compatible with acute/recent bowel perforation, site and etiology indeterminate, see full report. fu surgical recs diet per surgery NPO + IVFs cont NGT to LIS ppi BID monitor H&H, transfuse prn pain mgmt fu labs Subjective Subjective hungry wants NGT out Objective Last 24 Hour Vital Signs Date Time Temp Pulse Resp B/P (MAP) Pulse Ox O2 Delivery O2 Flow Rate FiO2 01/13/17 08:22 98.1 84 19 149/98 93 Nasal Cannula 2.0 01/13/17 04:00 98.6 86 16 144/93 94 Nasal Cannula 2.0 01/13/17 00:00 98.4 76 16 141/85 94 Nasal Cannula 2.0 01/12/17 21:57 97.8 01/12/17 20:00 97.9 92 01/12/17 20:00 97.9 92 18 146/92 96 Nasal Cannula 2.0 01/12/17 19:59 84 18 Nasal Cannula 2.0 28 01/12/17 19:59 96 Nasal Cannula 2.0 28 01/12/17 19:59 Nasal Cannula 2.0 28 01/12/17 16:00 97.8 75 19 137/89 97 Nasal Cannula 01/12/17 15:17 74 20 98 01/12/17 12:00 98.4 90 19 148/98 98 Nasal Cannula 01/12/17 10:32 84 17 98 Nasal Cannula 2.0 01/12/17 10:26 82 17 Nasal Cannula 2.0 01/12/17 10:26 94 Nasal Cannula 2.0 01/12/17 10:26 82 17 94 Nasal Cannula 2.0 01/12/17 10:26 Nasal Cannula 2.0 Intake and Output 01/13/17 01/14/17 19:00 07:00 Intake Total 300 ml Output Total 800 ml Balance -500 ml Intake IV Total 300 ml Output Urine Total 800 ml # Voids 2 Laboratory Tests Test 01/13/17 04:55 White Blood Count 14.3 K/UL (4.8-10.8) H Red Blood Count 4.15 M/UL (4.70-6.10) L Hemoglobin 11.3 G/DL (14.2-18.0) L Hematocrit 35.0 % (42.0-52.0) L Mean Corpuscular Volume 84 FL (80-99) Mean Corpuscular Hemoglobin 27.2 PG (27.0-31.0) Mean Corpuscular Hemoglobin Concent 32.3 G/DL (32.0-36.0) Red Cell Distribution Width 19.2 % (11.6-14.8) H Platelet Count 289 K/UL (150-450) Mean Platelet Volume 7.4 FL (6.5-10.1) Neutrophils (%) (Auto) % (45.0-75.0) Lymphocytes (%) (Auto) % (20.0-45.0) Monocytes (%) (Auto) % (1.0-10.0) Eosinophils (%) (Auto) % (0.0-3.0) Basophils (%) (Auto) % (0.0-2.0) Differential Total Cells Counted 100 Neutrophils % (Manual) 85 % (45-75) H Lymphocytes % (Manual) 10 % (20-45) L Monocytes % (Manual) 5 % (1-10) Eosinophils % (Manual) 0 % (0-3) Basophils % (Manual) 0 % (0-2) Band Neutrophils 0 % (0-8) Platelet Estimate Adequate Platelet Morphology Normal Hypochromasia 1+ Anisocytosis 2+ Microcytosis 1+ Target Cells Occasional Sodium Level 136 mEQ/L (135-145) Potassium Level 4.1 mEQ/L (3.4-4.9) Chloride Level 98 mEQ/L (98-107) Carbon Dioxide Level 27 mEQ/L (20-30) Anion Gap 11 (5-15) Blood Urea Nitrogen 11 mg/dL (7-23) Creatinine 1.1 mg/dL (0.7-1.2) Estimat Glomerular Filtration Rate > 60 mL/min (>60) Glucose Level 99 mg/dL (74-106) Calcium Level 9.0 mg/dL (8.6-10.2) Height (Feet): 5 Height (Inches): 9.00 Weight (Pounds): 150 General Appearance: no apparent distress, alert Cardiovascular: normal rate Respiratory/Chest: normal breath sounds Abdominal Exam: other - NGT Maria A Zheng N.P. Jan 13, 2017 10:23
[2017-01-13 11:47] VITALS: BP 148/97
--- NOTE | 2017-01-13 13:49 | Infectious Diseases Prog Note ---
Assessment/Plan Assessment/Plan Assessment 61 y/o AAM s/p perforation requiring exploratory laparotomy, pyloroplasty with Alfonso patch on 01/11/17. 1. perforated peptic ulcer 2. duodenal ulcer with secondary bacterial peritonitis. no operative cultures are pending. 3. s/p exploratory laparotomy, pyloroplasty, and alfonso patch. 4. low grade fevers, resolved 5. Leukocytosis, improved slightly down from peak of 19. anticipate WBC to normalize over next 24-48 hrs. 6. h/o cocaine abuse, nicotine dependence 7. Hiv Ab negative RECOMMENDATION: --Continue zosyn 3.375gm IV q8hr extended infusion, D#2. plan for 7-10 day post -operative course for secondary bacterial peritonitis, but once leukocytosis normalized and tolerating PO will plan to switch to oral ciprofloxacin 500mg q12hr and flagyl 500mg po q8hr to complete the course. s/p cefazolin x1 (01/11) --monitor temp curve --monitor WBC --Once he is tolerating PO and WBC normalized, will switch to PO cipro and flagyl to complete 10 day post-operative course. I am covering for Dr. Dean. Subjective Constitutional: Reports: no symptoms Respiratory: Reports: no symptoms Cardiovascular: Reports: no symptoms Gastrointestinal/Abdominal: Reports: no symptoms Genitourinary: Reports: no symptoms Skin: Reports: no symptoms Hematologic: Reports: no symptoms Allergies: Coded Allergies: No Known Allergies (Unverified , 05/07/14) Objective Vital Signs Last 24 Hour Vital Signs Date Time Temp Pulse Resp B/P (MAP) Pulse Ox O2 Delivery O2 Flow Rate FiO2 01/13/17 11:47 98.5 81 20 148/97 100 Room Air 01/13/17 08:22 98.1 84 19 149/98 93 Nasal Cannula 2.0 01/13/17 04:00 98.6 86 16 144/93 94 Nasal Cannula 2.0 01/13/17 00:00 98.4 76 16 141/85 94 Nasal Cannula 2.0 01/12/17 21:57 97.8 01/12/17 20:00 97.9 92 01/12/17 20:00 97.9 92 18 146/92 96 Nasal Cannula 2.0 01/12/17 19:59 84 18 Nasal Cannula 2.0 28 01/12/17 19:59 96 Nasal Cannula 2.0 28 01/12/17 19:59 Nasal Cannula 2.0 28 01/12/17 16:00 97.8 75 19 137/89 97 Nasal Cannula 01/12/17 15:17 74 20 98 Height (Feet): 5 Height (Inches): 9.00 Weight (Pounds): 150 Objective gen: sleeping comfortably, awakens to voice heent: Ngt in place, draining scant bilious fluid cv; rrr lungs: coarse rhonchi to lung bases b/l abd: soft, nt. abd dressing s/p ex lap in place. scant dried blood on dressing. [place] in place. FRAN drain with <10cc serosanguinous fluid. ext: thin, no edema, hypoactive bowel sounds skin: no rash, no petechiae. peripheral IV c/d/i. Laboratory Tests Test 01/13/17 04:55 White Blood Count 14.3 K/UL (4.8-10.8) H Red Blood Count 4.15 M/UL (4.70-6.10) L Hemoglobin 11.3 G/DL (14.2-18.0) L Hematocrit 35.0 % (42.0-52.0) L Mean Corpuscular Volume 84 FL (80-99) Mean Corpuscular Hemoglobin 27.2 PG (27.0-31.0) Mean Corpuscular Hemoglobin Concent 32.3 G/DL (32.0-36.0) Red Cell Distribution Width 19.2 % (11.6-14.8) H Platelet Count 289 K/UL (150-450) Mean Platelet Volume 7.4 FL (6.5-10.1) Neutrophils (%) (Auto) % (45.0-75.0) Lymphocytes (%) (Auto) % (20.0-45.0) Monocytes (%) (Auto) % (1.0-10.0) Eosinophils (%) (Auto) % (0.0-3.0) Basophils (%) (Auto) % (0.0-2.0) Differential Total Cells Counted 100 Neutrophils % (Manual) 85 % (45-75) H Lymphocytes % (Manual) 10 % (20-45) L Monocytes % (Manual) 5 % (1-10) Eosinophils % (Manual) 0 % (0-3) Basophils % (Manual) 0 % (0-2) Band Neutrophils 0 % (0-8) Platelet Estimate Adequate Platelet Morphology Normal Hypochromasia 1+ Anisocytosis 2+ Microcytosis 1+ Target Cells Occasional Sodium Level 136 mEQ/L (135-145) Potassium Level 4.1 mEQ/L (3.4-4.9) Chloride Level 98 mEQ/L (98-107) Carbon Dioxide Level 27 mEQ/L (20-30) Anion Gap 11 (5-15) Blood Urea Nitrogen 11 mg/dL (7-23) Creatinine 1.1 mg/dL (0.7-1.2) Estimat Glomerular Filtration Rate > 60 mL/min (>60) Glucose Level 99 mg/dL (74-106) Calcium Level 9.0 mg/dL (8.6-10.2) Current Medications Medications (Trade) Dose Ordered Sig/Jevon Route PRN Reason Start Time Stop Time Status Last Admin Dose Admin Acetaminophen (Tylenol) 650 mg Q4H PRN ORAL fever>100.5 01/11/17 17:00 02/10/17 16:59 Acetaminophen (Tylenol) 650 mg Q4H PRN RECTAL FEVER>100.5 01/11/17 17:00 02/10/17 16:59 Al Hydroxide/Mg Hydroxide (Mylanta II) 30 ml Q6H PRN ORAL dyspepsia 01/11/17 17:00 02/10/17 16:59 Albuterol/ Ipratropium (DuoNeb 0.5-3(2.5)mg/3ml) 3 ml Q8H PRN HHN Cough/Wheezing/SOB 01/12/17 10:00 01/17/17 09:59 01/12/17 10:26 Dextrose (Dextrose 50%) STAT PRN IV Hypoglycemia 01/11/17 17:00 02/10/17 16:59 Dextrose/ Electrolytes 1,000 ml @ 100 mls/hr Q10H IV 01/11/17 17:30 02/10/17 17:29 01/13/17 09:28 Diphenhydramine HCl (Benadryl) 25 mg Q6H PRN ORAL Itching/Pruritis 01/11/17 17:00 02/10/17 16:59 Esomeprazole Sodium (Nexium I.v.) 40 mg Q12HR IVP 01/11/17 21:00 02/10/17 20:59 01/13/17 09:28 Haloperidol Lactate (Haldol) 5 mg Q6H PRN IM Agitation 01/12/17 15:30 02/11/17 15:29 01/12/17 15:28 Heparin Sodium (Porcine) (Heparin 5000 units/ml) 5,000 units EVERY 12 HOURS SUBQ 01/11/17 21:00 02/10/17 20:59 01/13/17 09:29 Hydromorphone HCl (Dilaudid) 0.5 mg Q3H PRN IVP Pain Score 1-3 01/11/17 17:00 01/18/17 16:59 Hydromorphone HCl (Dilaudid) 1 mg Q3H PRN IVP pain score 4-6 01/11/17 18:00 01/18/17 17:59 Hydromorphone HCl (Dilaudid) 2 mg Q3H PRN IVP pain score 7-10 01/11/17 17:00 01/18/17 16:59 01/12/17 21:20 Metoclopramide HCl (Reglan) 10 mg Q6H PRN IVP Nausea & Vomiting 01/11/17 17:00 02/10/17 16:59 Morphine Sulfate (Morphine Sulfate) 2 mg Q4H PRN IVP Breakthrough Pain 01/11/17 17:00 01/18/17 16:59 Nitroglycerin (Ntg) 0.4 mg Q5M X 3 DOSES PRN SL Prn Chest Pain 01/11/17 17:00 02/10/17 16:59 Ondansetron HCl (Zofran) 4 mg Q6H PRN IVP Nausea & Vomiting 01/11/17 17:00 02/10/17 16:59 01/12/17 09:34 Piperacillin Sod/ Tazobactam Sod 3.375 gm/Dextrose 110 ml @ 27.5 mls/hr EVERY 8 HOURS IVPB 01/11/17 22:00 01/16/17 21:59 01/13/17 05:59 Polyethylene Glycol (Miralax) 17 gm HSPRN PRN ORAL Constipation 01/11/17 21:00 02/10/17 20:59 Temazepam (Restoril) 15 mg HSPRN PRN ORAL Insomnia 01/11/17 17:00 01/18/17 16:59 Thee Bergeron M.D. Jan 13, 2017 13:49
--- NOTE | 2017-01-13 14:34 | Pulmonology Progress Note ---
Assessment/Plan Problems: (1) Perforated abdominal viscus (2) Protein-calorie malnutrition, severe (3) Cocaine abuse Assessment/Plan NG suction NPO Iv fluids analgesics Haldol for agitation continue abx wbc decreasing check cultures check cbc, bmp in am Subjective ROS Limited/Unobtainable: No Constitutional: Reports: no symptoms HEENT: Repors: no symptoms Respiratory: Reports: no symptoms Allergies: Coded Allergies: No Known Allergies (Unverified , 05/07/14) Objective Last 24 Hour Vital Signs Date Time Temp Pulse Resp B/P (MAP) Pulse Ox O2 Delivery O2 Flow Rate FiO2 01/13/17 11:47 98.5 81 20 148/97 100 Room Air 01/13/17 10:34 Nasal Cannula 2.0 01/13/17 10:34 94 Nasal Cannula 2.0 01/13/17 10:34 83 16 Nasal Cannula 2.0 01/13/17 08:22 98.1 84 19 149/98 93 Nasal Cannula 2.0 01/13/17 04:00 98.6 86 16 144/93 94 Nasal Cannula 2.0 01/13/17 00:00 98.4 76 16 141/85 94 Nasal Cannula 2.0 01/12/17 21:57 97.8 01/12/17 20:00 97.9 92 01/12/17 20:00 97.9 92 18 146/92 96 Nasal Cannula 2.0 01/12/17 19:59 84 18 Nasal Cannula 2.0 28 01/12/17 19:59 96 Nasal Cannula 2.0 28 01/12/17 19:59 Nasal Cannula 2.0 28 01/12/17 16:00 97.8 75 19 137/89 97 Nasal Cannula 01/12/17 15:17 74 20 98 Intake and Output 01/13/17 01/14/17 19:00 07:00 Intake Total 600 ml Output Total 2500 ml Balance -1900 ml Intake IV Total 600 ml Output Urine Total 2500 ml # Voids 6 General Appearance: WD/WN HEENT: normocephalic, atraumatic Respiratory/Chest: chest wall non-tender, lungs clear Cardiovascular: normal peripheral pulses, normal rate Abdomen: normal bowel sounds, soft, non tender Genitourinary: normal external genitalia Extremities: no clubbing Skin: no rash Laboratory Tests 01/13/17 04:55: White Blood Count 14.3H, Red Blood Count 4.15L, Hemoglobin 11.3L, Hematocrit 35.0L, Mean Corpuscular Volume 84, Mean Corpuscular Hemoglobin 27.2, Mean Corpuscular Hemoglobin Concent 32.3, Red Cell Distribution Width 19.2H, Platelet Count 289, Mean Platelet Volume 7.4, Neutrophils (%) (Auto) , Lymphocytes (%) (Auto) , Monocytes (%) (Auto) , Eosinophils (%) (Auto) , Basophils (%) (Auto) , Differential Total Cells Counted 100, Neutrophils % ( Manual) 85H, Lymphocytes % (Manual) 10L, Monocytes % (Manual) 5, Eosinophils % ( Manual) 0, Basophils % (Manual) 0, Band Neutrophils 0, Platelet Estimate Adequate, Platelet Morphology Normal, Hypochromasia 1+, Anisocytosis 2+, Microcytosis 1+, Target Cells Occasional, Sodium Level 136, Potassium Level 4.1 , Chloride Level 98, Carbon Dioxide Level 27, Anion Gap 11, Blood Urea Nitrogen 11, Creatinine 1.1, Estimat Glomerular Filtration Rate > 60, Glucose Level 99, Calcium Level 9.0 Current Medications Medications (Trade) Dose Ordered Sig/Jevon Route PRN Reason Start Time Stop Time Status Last Admin Dose Admin Acetaminophen (Tylenol) 650 mg Q4H PRN ORAL fever>100.5 01/11/17 17:00 02/10/17 16:59 Acetaminophen (Tylenol) 650 mg Q4H PRN RECTAL FEVER>100.5 01/11/17 17:00 02/10/17 16:59 Al Hydroxide/Mg Hydroxide (Mylanta II) 30 ml Q6H PRN ORAL dyspepsia 01/11/17 17:00 02/10/17 16:59 Albuterol/ Ipratropium (DuoNeb 0.5-3(2.5)mg/3ml) 3 ml Q8H PRN HHN Cough/Wheezing/SOB 01/12/17 10:00 01/17/17 09:59 01/12/17 10:26 Dextrose (Dextrose 50%) STAT PRN IV Hypoglycemia 01/11/17 17:00 02/10/17 16:59 Dextrose/ Electrolytes 1,000 ml @ 100 mls/hr Q10H IV 01/11/17 17:30 02/10/17 17:29 01/13/17 09:28 Diphenhydramine HCl (Benadryl) 25 mg Q6H PRN ORAL Itching/Pruritis 01/11/17 17:00 02/10/17 16:59 Esomeprazole Sodium (Nexium I.v.) 40 mg Q12HR IVP 01/11/17 21:00 02/10/17 20:59 01/13/17 09:28 Haloperidol Lactate (Haldol) 5 mg Q6H PRN IM Agitation 01/12/17 15:30 02/11/17 15:29 01/12/17 15:28 Heparin Sodium (Porcine) (Heparin 5000 units/ml) 5,000 units EVERY 12 HOURS SUBQ 01/11/17 21:00 02/10/17 20:59 01/13/17 09:29 Hydromorphone HCl (Dilaudid) 0.5 mg Q3H PRN IVP Pain Score 1-3 01/11/17 17:00 01/18/17 16:59 Hydromorphone HCl (Dilaudid) 1 mg Q3H PRN IVP pain score 4-6 01/11/17 18:00 01/18/17 17:59 Hydromorphone HCl (Dilaudid) 2 mg Q3H PRN IVP pain score 7-10 01/11/17 17:00 01/18/17 16:59 01/12/17 21:20 Metoclopramide HCl (Reglan) 10 mg Q6H PRN IVP Nausea & Vomiting 01/11/17 17:00 02/10/17 16:59 Morphine Sulfate (Morphine Sulfate) 2 mg Q4H PRN IVP Breakthrough Pain 01/11/17 17:00 01/18/17 16:59 Nitroglycerin (Ntg) 0.4 mg Q5M X 3 DOSES PRN SL Prn Chest Pain 01/11/17 17:00 02/10/17 16:59 Ondansetron HCl (Zofran) 4 mg Q6H PRN IVP Nausea & Vomiting 01/11/17 17:00 02/10/17 16:59 01/12/17 09:34 Piperacillin Sod/ Tazobactam Sod 3.375 gm/Dextrose 110 ml @ 27.5 mls/hr EVERY 8 HOURS IVPB 01/11/17 22:00 01/16/17 21:59 01/13/17 05:59 Polyethylene Glycol (Miralax) 17 gm HSPRN PRN ORAL Constipation 01/11/17 21:00 02/10/17 20:59 Temazepam (Restoril) 15 mg HSPRN PRN ORAL Insomnia 01/11/17 17:00 01/18/17 16:59 DILIP RASHEED Jan 13, 2017 14:34
--- NOTE | 2017-01-13 14:46 | General Surgery Progress Note ---
General Surgery-Progress Note Subjective Procedure Performed exploratory laparotomy, pyloroplasty with Alfonso patch Objective Last 24 Hour Vital Signs Date Time Temp Pulse Resp B/P (MAP) Pulse Ox O2 Delivery O2 Flow Rate FiO2 01/13/17 11:47 98.5 81 20 148/97 100 Room Air 01/13/17 10:34 Nasal Cannula 2.0 01/13/17 10:34 94 Nasal Cannula 2.0 01/13/17 10:34 83 16 Nasal Cannula 2.0 01/13/17 08:22 98.1 84 19 149/98 93 Nasal Cannula 2.0 01/13/17 04:00 98.6 86 16 144/93 94 Nasal Cannula 2.0 01/13/17 00:00 98.4 76 16 141/85 94 Nasal Cannula 2.0 01/12/17 21:57 97.8 01/12/17 20:00 97.9 92 01/12/17 20:00 97.9 92 18 146/92 96 Nasal Cannula 2.0 01/12/17 19:59 84 18 Nasal Cannula 2.0 28 01/12/17 19:59 96 Nasal Cannula 2.0 28 01/12/17 19:59 Nasal Cannula 2.0 28 01/12/17 16:00 97.8 75 19 137/89 97 Nasal Cannula 01/12/17 15:17 74 20 98 I&O Intake and Output 01/13/17 01/14/17 19:00 07:00 Intake Total 600 ml Output Total 2950 ml Balance -2350 ml Intake IV Total 600 ml Output Urine Total 2950 ml # Voids 7 Dressing: dry Respiratory: clear Abdomen: soft, non-tender, absent bowel sounds Extremities: no tenderness Laboratory Tests Test 01/13/17 04:55 White Blood Count 14.3 K/UL (4.8-10.8) H Red Blood Count 4.15 M/UL (4.70-6.10) L Hemoglobin 11.3 G/DL (14.2-18.0) L Hematocrit 35.0 % (42.0-52.0) L Mean Corpuscular Volume 84 FL (80-99) Mean Corpuscular Hemoglobin 27.2 PG (27.0-31.0) Mean Corpuscular Hemoglobin Concent 32.3 G/DL (32.0-36.0) Red Cell Distribution Width 19.2 % (11.6-14.8) H Platelet Count 289 K/UL (150-450) Mean Platelet Volume 7.4 FL (6.5-10.1) Neutrophils (%) (Auto) % (45.0-75.0) Lymphocytes (%) (Auto) % (20.0-45.0) Monocytes (%) (Auto) % (1.0-10.0) Eosinophils (%) (Auto) % (0.0-3.0) Basophils (%) (Auto) % (0.0-2.0) Differential Total Cells Counted 100 Neutrophils % (Manual) 85 % (45-75) H Lymphocytes % (Manual) 10 % (20-45) L Monocytes % (Manual) 5 % (1-10) Eosinophils % (Manual) 0 % (0-3) Basophils % (Manual) 0 % (0-2) Band Neutrophils 0 % (0-8) Platelet Estimate Adequate Platelet Morphology Normal Hypochromasia 1+ Anisocytosis 2+ Microcytosis 1+ Target Cells Occasional Sodium Level 136 mEQ/L (135-145) Potassium Level 4.1 mEQ/L (3.4-4.9) Chloride Level 98 mEQ/L (98-107) Carbon Dioxide Level 27 mEQ/L (20-30) Anion Gap 11 (5-15) Blood Urea Nitrogen 11 mg/dL (7-23) Creatinine 1.1 mg/dL (0.7-1.2) Estimat Glomerular Filtration Rate > 60 mL/min (>60) Glucose Level 99 mg/dL (74-106) Calcium Level 9.0 mg/dL (8.6-10.2) Assessment Post-op Diagnosis perforated peptic ulcer Plan Additional Comments continue as before AGNIESZKA PEREZ Jan 13, 2017 14:46
[2017-01-13 16:08] VITALS: BP 156/92
[2017-01-13 20:00] VITALS: BP 147/102
[2017-01-14 00:15] VITALS: BP 149/103
[2017-01-14 04:00] VITALS: BP 152/104
[2017-01-14] MEDS: D5 1/2NS w/KCl 20mEq 1,000 ML IV SCH ×2 (05:30→16:00)
[2017-01-14 06:08] LABS: BASOPHILS % (AUTO) 0.4 % (0.0-2.0); EOSINOPHILS % (AUTO) 0.7 % (0.0-3.0); LYMPHOCYTES % (AUTO) 10.3 % (20.0-45.0); MEAN CORPUSCULAR HEMOGLOBIN 27.9 PG (27.0-31.0); MEAN CORPUSCULAR HGB CONC 33.3 G/DL (32.0-36.0); MEAN CORPUSCULAR VOLUME 84 FL (80-99); MEAN PLATELET VOLUME 7.2 FL (6.5-10.1); MONOCYTES % (AUTO) 7.3 % (1.0-10.0); NEUTROPHILS % (AUTO) 81.3 % (45.0-75.0); PLATELET COUNT 313 K/UL (150-450); RED BLOOD COUNT 4.46 M/UL (4.70-6.10); RED CELL DISTRIBUTION WIDTH 19.1 % (11.6-14.8); WHITE BLOOD COUNT 8.9 K/UL (4.8-10.8)
[2017-01-14] MEDS: Piperacillin/Tazobactam 3.375 GM in D5W 110 ML IVPB SCH ×3 (06:08→22:17)
[2017-01-14 06:37] LABS: ANION GAP 13 (5-15); CALCIUM 9.2 mg/dL (8.6-10.2); CARBON DIOXIDE 24 mEQ/L (20-30); CHLORIDE 99 mEQ/L (98-107); CREATININE 1.1 mg/dL (0.7-1.2); GLOMERULAR FILTRATION RATE > 60 mL/min (>60); HEMOLYSIS 9; SODIUM 136 mEQ/L (135-145)
--- NOTE | 2017-01-14 08:16 | Pulmonology Progress Note ---
Assessment/Plan Assessment/Plan ASSESSMENT perforated duodenal ulcer duodenal ulcer with secondary peritonitis s/p 01/11 exp laparotomy, penoplasty, Alfonso patch nicotine dependency Hx of cocaine abuse anemia severe protein calorie malnutrition gastritis PLAN OF CARE MS floor NRO IVF abx ID follows NGT PPI bid monitor FRAN drain output monitor HH and transfuse as needed to keep Hgb above 8 GI follows pain management surgery follows O2 HHN prn clinical mental health counselor on smoking cessation, not ready to quit, declined Nicotine patch urine tox screen + cocaine DVT prophylaxis dietary eval when starts eating case discussed and evaluated by supervising physician Subjective Allergies: Coded Allergies: No Known Allergies (Unverified , 05/07/14) Subjective leukocytosis resolved afebrile pain intermittently controlled occasional nausea not passing flatus yet Objective Last 24 Hour Vital Signs Date Time Temp Pulse Resp B/P (MAP) Pulse Ox O2 Delivery O2 Flow Rate FiO2 01/14/17 07:13 Nasal Cannula 2.0 28 01/14/17 07:13 75 16 Nasal Cannula 2.0 01/14/17 07:13 94 Nasal Cannula 2.0 01/14/17 06:38 98.1 01/14/17 04:00 98.1 82 18 152/104 93 Nasal Cannula 2.0 01/14/17 00:15 98.1 83 18 149/103 92 Nasal Cannula 2.0 01/13/17 20:00 97.9 85 19 147/102 92 Nasal Cannula 2.0 01/13/17 19:30 95 Nasal Cannula 2.0 01/13/17 19:30 82 16 Nasal Cannula 2.0 01/13/17 19:30 Nasal Cannula 2.0 01/13/17 16:08 97.3 82 20 156/92 98 Nasal Cannula 2.0 01/13/17 11:47 98.5 81 20 148/97 100 Room Air 01/13/17 10:34 Nasal Cannula 2.0 01/13/17 10:34 94 Nasal Cannula 2.0 01/13/17 10:34 83 16 Nasal Cannula 2.0 01/13/17 08:22 98.1 84 19 149/98 93 Nasal Cannula 2.0 Intake and Output 01/14/17 01/15/17 19:00 07:00 Intake Total 27.5 ml Balance 27.5 ml Intake IV Total 27.5 ml General Appearance: no acute distress, other - awake, alert, oriented cachectic AA male HEENT: normocephalic, atraumatic, anicteric, other - NGT Respiratory/Chest: lungs clear - with moderate air exchange , no respiratory distress, no accessory muscle use Cardiovascular: normal rate, regular rhythm, no JVD Abdomen: absent bowel sounds, other - abdominal dressing over abdominal incision with santiago, clean, dry, FRAN drain with serosanguineous drainage Extremities: no edema, pedal pulses normal Neurologic/Psychiatric: alert, responsive Musculoskeletal: normal muscle bulk Laboratory Tests 01/14/17 04:45: White Blood Count 8.9, Red Blood Count 4.46L, Hemoglobin 12.5L, Hematocrit 37.4L , Mean Corpuscular Volume 84, Mean Corpuscular Hemoglobin 27.9, Mean Corpuscular Hemoglobin Concent 33.3, Red Cell Distribution Width 19.1H, Platelet Count 313, Mean Platelet Volume 7.2, Neutrophils (%) (Auto) 81.3H, Lymphocytes (%) (Auto) 10.3L, Monocytes (%) (Auto) 7.3, Eosinophils (%) (Auto) 0.7, Basophils (%) (Auto) 0.4, Sodium Level 136, Potassium Level 4.0, Chloride Level 99, Carbon Dioxide Level 24, Anion Gap 13, Blood Urea Nitrogen 11, Creatinine 1.1, Estimat Glomerular Filtration Rate > 60, Glucose Level 87, Calcium Level 9.2 Current Medications Medications (Trade) Dose Ordered Sig/Jevon Route PRN Reason Start Time Stop Time Status Last Admin Dose Admin Acetaminophen (Tylenol) 650 mg Q4H PRN ORAL fever>100.5 01/11/17 17:00 02/10/17 16:59 Acetaminophen (Tylenol) 650 mg Q4H PRN RECTAL FEVER>100.5 01/11/17 17:00 02/10/17 16:59 Al Hydroxide/Mg Hydroxide (Mylanta II) 30 ml Q6H PRN ORAL dyspepsia 01/11/17 17:00 02/10/17 16:59 Albuterol/ Ipratropium (DuoNeb 0.5-3(2.5)mg/3ml) 3 ml Q8H PRN HHN Cough/Wheezing/SOB 01/12/17 10:00 01/17/17 09:59 01/12/17 10:26 Dextrose (Dextrose 50%) STAT PRN IV Hypoglycemia 01/11/17 17:00 02/10/17 16:59 Dextrose/ Electrolytes 1,000 ml @ 100 mls/hr Q10H IV 01/11/17 17:30 02/10/17 17:29 01/13/17 09:28 Diphenhydramine HCl (Benadryl) 25 mg Q6H PRN ORAL Itching/Pruritis 01/11/17 17:00 02/10/17 16:59 Esomeprazole Sodium (Nexium I.v.) 40 mg Q12HR IVP 01/11/17 21:00 02/10/17 20:59 01/13/17 22:44 Haloperidol Lactate (Haldol) 5 mg Q6H PRN IM Agitation 01/12/17 15:30 02/11/17 15:29 01/12/17 15:28 Heparin Sodium (Porcine) (Heparin 5000 units/ml) 5,000 units EVERY 12 HOURS SUBQ 01/11/17 21:00 02/10/17 20:59 01/13/17 21:41 Hydromorphone HCl (Dilaudid) 0.5 mg Q3H PRN IVP Pain Score 1-3 01/11/17 17:00 01/18/17 16:59 Hydromorphone HCl (Dilaudid) 1 mg Q3H PRN IVP pain score 4-6 01/11/17 18:00 01/18/17 17:59 Hydromorphone HCl (Dilaudid) 2 mg Q3H PRN IVP pain score 7-10 01/11/17 17:00 01/18/17 16:59 01/14/17 06:08 Metoclopramide HCl (Reglan) 10 mg Q6H PRN IVP Nausea & Vomiting 01/11/17 17:00 02/10/17 16:59 Morphine Sulfate (Morphine Sulfate) 2 mg Q4H PRN IVP Breakthrough Pain 01/11/17 17:00 01/18/17 16:59 Nitroglycerin (Ntg) 0.4 mg Q5M X 3 DOSES PRN SL Prn Chest Pain 01/11/17 17:00 02/10/17 16:59 Ondansetron HCl (Zofran) 4 mg Q6H PRN IVP Nausea & Vomiting 01/11/17 17:00 9/21/17 16:59 01/12/17 09:34 Piperacillin Sod/ Tazobactam Sod 3.375 gm/Dextrose 110 ml @ 27.5 mls/hr EVERY 8 HOURS IVPB 01/11/17 22:00 01/16/17 21:59 01/14/17 06:08 Polyethylene Glycol (Miralax) 17 gm HSPRN PRN ORAL Constipation 01/11/17 21:00 02/10/17 20:59 Temazepam (Restoril) 15 mg HSPRN PRN ORAL Insomnia 01/11/17 17:00 01/18/17 16:59 Artemio ([facility])Angella NP Jan 14, 2017 08:16
[2017-01-14 08:31] VITALS: BP 162/94
--- NOTE | 2017-01-14 10:18 | GI Progress Note ---
Assessment/Plan Problems: (1) Gastritis ICD Codes: K29.70 - Gastritis, unspecified, without bleeding SNOMED: 1279004 (2) Anemia ICD Codes: D64.9 - Anemia, unspecified SNOMED: 260796099 (3) Perforated abdominal viscus SNOMED: 801454863 (4) Protein-calorie malnutrition, severe ICD Codes: E43 - Unspecified severe protein-calorie malnutrition SNOMED: 606634857 (5) GERD (gastroesophageal reflux disease) ICD Codes: K21.9 - Gastro-esophageal reflux disease without esophagitis SNOMED: 463429726 (6) Gastritis ICD Codes: K29.70 - Gastritis, unspecified, without bleeding SNOMED: 3332217 (7) Cocaine abuse ICD Codes: F14.10 - Cocaine abuse, uncomplicated SNOMED: 33237419, 395158208 Status: stable, progressing Status Narrative Discussed with Dr. Umanzor. Assessment/Plan Endoscopy Procedure Note Indication for Procedure: anemia Procedures Performed: EGD Operative Findings/Diagnosis: ABHILASH Hill - Jun 23, 2016 10:[address] reviewed >> Pneumoperitoneum compatible with acute/recent bowel perforation, site and etiology indeterminate, see full report. s/p exploratory laparotomy, pyloroplasty with Alfonso patch fu surgical recs diet per surgery NPO + IVFs cont NGT to LIS ppi BID monitor H&H, transfuse prn pain mgmt fu labs Subjective Subjective hungry wants NGT out Objective Last 24 Hour Vital Signs Date Time Temp Pulse Resp B/P (MAP) Pulse Ox O2 Delivery O2 Flow Rate FiO2 01/14/17 08:31 98.4 77 20 162/94 95 Nasal Cannula 2.0 01/14/17 07:13 Nasal Cannula 2.0 28 01/14/17 07:13 75 16 Nasal Cannula 2.0 28 01/14/17 07:13 94 Nasal Cannula 2.0 28 01/14/17 06:38 98.1 01/14/17 04:00 98.1 82 18 152/104 93 Nasal Cannula 2.0 01/14/17 00:15 98.1 83 18 149/103 92 Nasal Cannula 2.0 01/13/17 20:00 97.9 85 19 147/102 92 Nasal Cannula 2.0 01/13/17 19:30 95 Nasal Cannula 2.0 28 01/13/17 19:30 82 16 Nasal Cannula 2.0 28 01/13/17 19:30 Nasal Cannula 2.0 28 01/13/17 16:08 97.3 82 20 156/92 98 Nasal Cannula 2.0 01/13/17 11:47 98.5 81 20 148/97 100 Room Air 01/13/17 10:34 Nasal Cannula 2.0 01/13/17 10:34 94 Nasal Cannula 2.0 01/13/17 10:34 83 16 Nasal Cannula 2.0 Intake and Output 01/14/17 01/15/17 19:00 07:00 Intake Total 27.5 ml Output Total 400 ml Balance -372.5 ml Intake IV Total 27.5 ml Output Urine Total 400 ml Laboratory Tests Test 01/14/17 04:45 White Blood Count 8.9 K/UL (4.8-10.8) Red Blood Count 4.46 M/UL (4.70-6.10) L Hemoglobin 12.5 G/DL (14.2-18.0) L Hematocrit 37.4 % (42.0-52.0) L Mean Corpuscular Volume 84 FL (80-99) Mean Corpuscular Hemoglobin 27.9 PG (27.0-31.0) Mean Corpuscular Hemoglobin Concent 33.3 G/DL (32.0-36.0) Red Cell Distribution Width 19.1 % (11.6-14.8) H Platelet Count 313 K/UL (150-450) Mean Platelet Volume 7.2 FL (6.5-10.1) Neutrophils (%) (Auto) 81.3 % (45.0-75.0) H Lymphocytes (%) (Auto) 10.3 % (20.0-45.0) L Monocytes (%) (Auto) 7.3 % (1.0-10.0) Eosinophils (%) (Auto) 0.7 % (0.0-3.0) Basophils (%) (Auto) 0.4 % (0.0-2.0) Sodium Level 136 mEQ/L (135-145) Potassium Level 4.0 mEQ/L (3.4-4.9) Chloride Level 99 mEQ/L (98-107) Carbon Dioxide Level 24 mEQ/L (20-30) Anion Gap 13 (5-15) Blood Urea Nitrogen 11 mg/dL (7-23) Creatinine 1.1 mg/dL (0.7-1.2) Estimat Glomerular Filtration Rate > 60 mL/min (>60) Glucose Level 87 mg/dL (74-106) Calcium Level 9.2 mg/dL (8.6-10.2) Height (Feet): 5 Height (Inches): 9.00 Weight (Pounds): 150 General Appearance: no apparent distress, alert, thin Cardiovascular: normal rate Respiratory/Chest: normal breath sounds, no respiratory distress Abdominal Exam: normal bowel sounds, non tender, soft Maria A Zheng N.P. Jan 14, 2017 10:18
[2017-01-14] MEDS: Esomeprazole sodium 40mg vial IVP SCH ×2 (10:19→22:17)
[2017-01-14] MEDS: Heparin 5000 units/ml inj SUBQ SCH ×2 (10:20→22:21)
[2017-01-14 12:32] VITALS: BP 156/102
--- NOTE | 2017-01-14 13:26 | Infectious Diseases Prog Note ---
Assessment/Plan Assessment/Plan Assessment 61 y/o AAM s/p perforation requiring exploratory laparotomy, pyloroplasty with Alfonso patch on 01/11/17, still NPO. 1. perforated peptic ulcer 2. duodenal ulcer with secondary bacterial peritonitis. no operative cultures are pending. 3. s/p exploratory laparotomy, pyloroplasty, and alfonso patch. 4. low grade fevers, resolved 5. Leukocytosis, resolved down from peak of 19. 6. h/o cocaine abuse, nicotine dependence 7. Hiv Ab negative RECOMMENDATION: --Continue zosyn 3.375gm IV q8hr extended infusion, D#3. plan for 7-10 day post -operative course for secondary bacterial peritonitis, but once leukocytosis normalized and tolerating PO will plan to switch to oral ciprofloxacin 500mg q12hr and flagyl 500mg po q8hr to complete the course. s/p cefazolin x1 (01/11) --monitor temp curve --monitor WBC --Once he is tolerating PO, will switch to PO cipro and flagyl to complete 10 day post-operative course. I am covering for Dr. Dean. Subjective Constitutional: Reports: no symptoms HEENT: Reports: no symptoms Respiratory: Reports: no symptoms Cardiovascular: Reports: no symptoms Gastrointestinal/Abdominal: Reports: no symptoms Skin: Reports: no symptoms Musculoskeletal: Reports: no symptoms Allergies: Coded Allergies: No Known Allergies (Unverified , 05/07/14) Objective Vital Signs Last 24 Hour Vital Signs Date Time Temp Pulse Resp B/P (MAP) Pulse Ox O2 Delivery O2 Flow Rate FiO2 01/14/17 12:32 98.4 74 17 156/102 97 Room Air 01/14/17 08:31 98.4 77 20 162/94 95 Nasal Cannula 2.0 01/14/17 07:13 Nasal Cannula 2.0 28 01/14/17 07:13 75 16 Nasal Cannula 2.0 28 01/14/17 07:13 94 Nasal Cannula 2.0 01/14/17 06:38 98.1 01/14/17 04:00 98.1 82 18 152/104 93 Nasal Cannula 2.0 01/14/17 00:15 98.1 83 18 149/103 92 Nasal Cannula 2.0 01/13/17 20:00 97.9 85 19 147/102 92 Nasal Cannula 2.0 01/13/17 19:30 95 Nasal Cannula 2.0 28 01/13/17 19:30 82 16 Nasal Cannula 2.0 28 01/13/17 19:30 Nasal Cannula 2.0 28 01/13/17 16:08 97.3 82 20 156/92 98 Nasal Cannula 2.0 Height (Feet): 5 Height (Inches): 9.00 Weight (Pounds): 150 Objective gen: sleeping comfortably, awakens to voice heent: Ngt in place, draining scant bilious fluid, to low intermittent suction cv; rrr lungs: coarse rhonchi to lung bases b/l abd: soft, nt. abd dressing s/p ex lap in place. scant dried blood on dressing. santiago in place. ext: thin, no edema, hypoactive bowel sounds skin: no rash, no petechiae. peripheral IV c/d/i. Laboratory Tests Test 01/14/17 04:45 White Blood Count 8.9 K/UL (4.8-10.8) Red Blood Count 4.46 M/UL (4.70-6.10) L Hemoglobin 12.5 G/DL (14.2-18.0) L Hematocrit 37.4 % (42.0-52.0) L Mean Corpuscular Volume 84 FL (80-99) Mean Corpuscular Hemoglobin 27.9 PG (27.0-31.0) Mean Corpuscular Hemoglobin Concent 33.3 G/DL (32.0-36.0) Red Cell Distribution Width 19.1 % (11.6-14.8) H Platelet Count 313 K/UL (150-450) Mean Platelet Volume 7.2 FL (6.5-10.1) Neutrophils (%) (Auto) 81.3 % (45.0-75.0) H Lymphocytes (%) (Auto) 10.3 % (20.0-45.0) L Monocytes (%) (Auto) 7.3 % (1.0-10.0) Eosinophils (%) (Auto) 0.7 % (0.0-3.0) Basophils (%) (Auto) 0.4 % (0.0-2.0) Sodium Level 136 mEQ/L (135-145) Potassium Level 4.0 mEQ/L (3.4-4.9) Chloride Level 99 mEQ/L (98-107) Carbon Dioxide Level 24 mEQ/L (20-30) Anion Gap 13 (5-15) Blood Urea Nitrogen 11 mg/dL (7-23) Creatinine 1.1 mg/dL (0.7-1.2) Estimat Glomerular Filtration Rate > 60 mL/min (>60) Glucose Level 87 mg/dL (74-106) Calcium Level 9.2 mg/dL (8.6-10.2) Current Medications Medications (Trade) Dose Ordered Sig/Jevon Route PRN Reason Start Time Stop Time Status Last Admin Dose Admin Acetaminophen (Tylenol) 650 mg Q4H PRN ORAL fever>100.5 01/11/17 17:00 02/10/17 16:59 Acetaminophen (Tylenol) 650 mg Q4H PRN RECTAL FEVER>100.5 01/11/17 17:00 02/10/17 16:59 Al Hydroxide/Mg Hydroxide (Mylanta II) 30 ml Q6H PRN ORAL dyspepsia 01/11/17 17:00 02/10/17 16:59 Albuterol/ Ipratropium (DuoNeb 0.5-3(2.5)mg/3ml) 3 ml Q8H PRN HHN Cough/Wheezing/SOB 01/12/17 10:00 01/17/17 09:59 01/12/17 10:26 Dextrose (Dextrose 50%) STAT PRN IV Hypoglycemia 01/11/17 17:00 02/10/17 16:59 Dextrose/ Electrolytes 1,000 ml @ 100 mls/hr Q10H IV 01/11/17 17:30 02/10/17 17:29 01/13/17 09:28 Diphenhydramine HCl (Benadryl) 25 mg Q6H PRN ORAL Itching/Pruritis 01/11/17 17:00 02/10/17 16:59 Esomeprazole Sodium (Nexium I.v.) 40 mg Q12HR IVP 01/11/17 21:00 02/10/17 20:59 01/14/17 10:19 Haloperidol Lactate (Haldol) 5 mg Q6H PRN IM Agitation 01/12/17 15:30 02/11/17 15:29 01/12/17 15:28 Heparin Sodium (Porcine) (Heparin 5000 units/ml) 5,000 units EVERY 12 HOURS SUBQ 01/11/17 21:00 02/10/17 20:59 01/14/17 10:20 Hydromorphone HCl (Dilaudid) 0.5 mg Q3H PRN IVP Pain Score 1-3 01/11/17 17:00 01/18/17 16:59 Hydromorphone HCl (Dilaudid) 1 mg Q3H PRN IVP pain score 4-6 01/11/17 18:00 01/18/17 17:59 Hydromorphone HCl (Dilaudid) 2 mg Q3H PRN IVP pain score 7-10 01/11/17 17:00 01/18/17 16:59 01/14/17 06:08 Metoclopramide HCl (Reglan) 10 mg Q6H PRN IVP Nausea & Vomiting 01/11/17 17:00 02/10/17 16:59 Morphine Sulfate (Morphine Sulfate) 2 mg Q4H PRN IVP Breakthrough Pain 01/11/17 17:00 01/18/17 16:59 Nitroglycerin (Ntg) 0.4 mg Q5M X 3 DOSES PRN SL Prn Chest Pain 01/11/17 17:00 02/10/17 16:59 Ondansetron HCl (Zofran) 4 mg Q6H PRN IVP Nausea & Vomiting 01/11/17 17:00 02/10/17 16:59 01/12/17 09:34 Piperacillin Sod/ Tazobactam Sod 3.375 gm/Dextrose 110 ml @ 27.5 mls/hr EVERY 8 HOURS IVPB 01/11/17 22:00 01/16/17 21:59 01/14/17 06:08 Polyethylene Glycol (Miralax) 17 gm HSPRN PRN ORAL Constipation 01/11/17 21:00 02/10/17 20:59 Temazepam (Restoril) 15 mg HSPRN PRN ORAL Insomnia 01/11/17 17:00 01/18/17 16:59 Thee Bergeron M.D. Jan 14, 2017 13:26
[2017-01-14 16:06] VITALS: BP 153/96
--- NOTE | 2017-01-14 16:59 | General Surgery Progress Note ---
General Surgery-Progress Note Subjective Procedure Performed exploratory laparotomy, pyloroplasty with Alfonso patch Symptoms: improved, passing flatus Objective Last 24 Hour Vital Signs Date Time Temp Pulse Resp B/P (MAP) Pulse Ox O2 Delivery O2 Flow Rate FiO2 01/14/17 16:06 98.1 78 18 153/96 96 Nasal Cannula 2.0 01/14/17 12:32 98.4 74 17 156/102 97 Room Air 01/14/17 08:31 98.4 77 20 162/94 95 Nasal Cannula 2.0 01/14/17 07:13 Nasal Cannula 2.0 28 01/14/17 07:13 75 16 Nasal Cannula 2.0 28 01/14/17 07:13 94 Nasal Cannula 2.0 28 01/14/17 06:38 98.1 01/14/17 04:00 98.1 82 18 152/104 93 Nasal Cannula 2.0 01/14/17 00:15 98.1 83 18 149/103 92 Nasal Cannula 2.0 01/13/17 20:00 97.9 85 19 147/102 92 Nasal Cannula 2.0 01/13/17 19:30 95 Nasal Cannula 2.0 28 01/13/17 19:30 82 16 Nasal Cannula 2.0 28 01/13/17 19:30 Nasal Cannula 2.0 28 I&O Intake and Output 01/14/17 01/15/17 19:00 07:00 Intake Total 27.5 ml Output Total 900 ml Balance -872.5 ml Intake IV Total 27.5 ml Output Urine Total 900 ml Dressing: dry Drains: yahir Respiratory: clear Abdomen: soft, flat, non-tender, absent bowel sounds Extremities: no tenderness Laboratory Tests Test 01/14/17 04:45 White Blood Count 8.9 K/UL (4.8-10.8) Red Blood Count 4.46 M/UL (4.70-6.10) L Hemoglobin 12.5 G/DL (14.2-18.0) L Hematocrit 37.4 % (42.0-52.0) L Mean Corpuscular Volume 84 FL (80-99) Mean Corpuscular Hemoglobin 27.9 PG (27.0-31.0) Mean Corpuscular Hemoglobin Concent 33.3 G/DL (32.0-36.0) Red Cell Distribution Width 19.1 % (11.6-14.8) H Platelet Count 313 K/UL (150-450) Mean Platelet Volume 7.2 FL (6.5-10.1) Neutrophils (%) (Auto) 81.3 % (45.0-75.0) H Lymphocytes (%) (Auto) 10.3 % (20.0-45.0) L Monocytes (%) (Auto) 7.3 % (1.0-10.0) Eosinophils (%) (Auto) 0.7 % (0.0-3.0) Basophils (%) (Auto) 0.4 % (0.0-2.0) Sodium Level 136 mEQ/L (135-145) Potassium Level 4.0 mEQ/L (3.4-4.9) Chloride Level 99 mEQ/L (98-107) Carbon Dioxide Level 24 mEQ/L (20-30) Anion Gap 13 (5-15) Blood Urea Nitrogen 11 mg/dL (7-23) Creatinine 1.1 mg/dL (0.7-1.2) Estimat Glomerular Filtration Rate > 60 mL/min (>60) Glucose Level 87 mg/dL (74-106) Calcium Level 9.2 mg/dL (8.6-10.2) Assessment Post-op Diagnosis perforated peptic ulcer Plan Additional Comments npo continue as before AGNIESZKA PEREZ Jan 14, 2017 16:59
[2017-01-14 20:00] VITALS: BP 159/98
[2017-01-15] VITALS (8 sets, daily range): BP systolic 128–155; BP diastolic 70–108
[2017-01-15] MEDS: D5 1/2NS w/KCl 20mEq 1,000 ML IV SCH ×3 (01:30→21:51)
[2017-01-15] MEDS: Piperacillin/Tazobactam 3.375 GM in D5W 110 ML IVPB SCH ×3 (05:48→21:35)
--- NOTE | 2017-01-15 08:37 | Pulmonology Progress Note ---
Assessment/Plan Assessment/Plan ASSESSMENT perforated duodenal ulcer duodenal ulcer with secondary peritonitis s/p 01/11 exp laparotomy, penoplasty, Alfonso patch nicotine dependency Hx of cocaine abuse anemia severe protein calorie malnutrition gastritis PLAN OF CARE MS floor NRO IVF abx ID follows NGT PPI bid monitor FRAN drain output monitor HH and transfuse as needed to keep Hgb above 8 GI follows pain management surgery follows O2 HHN prn compliance counsel on smoking cessation, not ready to quit, declined Nicotine patch urine tox screen + cocaine DVT prophylaxis dietary eval when starts eating case discussed and evaluated by supervising physician Subjective Allergies: Coded Allergies: No Known Allergies (Unverified , 05/07/14) Subjective leukocytosis resolved afebrile pain intermittently controlled occasional nausea passing flatus now Objective Last 24 Hour Vital Signs Date Time Temp Pulse Resp B/P (MAP) Pulse Ox O2 Delivery O2 Flow Rate FiO2 01/15/17 04:00 98.2 69 16 149/104 95 Nasal Cannula 2.0 01/15/17 01:30 149/101 01/15/17 00:00 98.6 74 16 154/108 95 Nasal Cannula 2.0 01/14/17 21:31 83 18 Nasal Cannula 2.0 28 01/14/17 21:31 Nasal Cannula 2.0 28 01/14/17 21:31 93 Nasal Cannula 2.0 28 01/14/17 20:00 99.2 84 18 159/98 91 Room Air 01/14/17 16:06 98.1 78 18 153/96 96 Nasal Cannula 2.0 01/14/17 12:32 98.4 74 17 156/102 97 Room Air Objective General Appearance: no acute distress, awake, alert, oriented cachectic AA male HEENT: normocephalic, atraumatic, anicteric, NGT Respiratory/Chest: lungs clear - with moderate air exchange , no respiratory distress, no accessory muscle use Cardiovascular: normal rate, regular rhythm, no JVD Abdomen: hypoactive bowel sounds, abdominal dressing over abdominal incision with santiago, clean, dry, FRAN drain with serosanguineous drainage Extremities: no edema, pedal pulses normal Neurologic/Psychiatric: alert, responsive Musculoskeletal: normal muscle bulk Current Medications Medications (Trade) Dose Ordered Sig/Jevon Route PRN Reason Start Time Stop Time Status Last Admin Dose Admin Acetaminophen (Tylenol) 650 mg Q4H PRN ORAL fever>100.5 01/11/17 17:00 02/10/17 16:59 Acetaminophen (Tylenol) 650 mg Q4H PRN RECTAL FEVER>100.5 01/11/17 17:00 02/10/17 16:59 Al Hydroxide/Mg Hydroxide (Mylanta II) 30 ml Q6H PRN ORAL dyspepsia 01/11/17 17:00 02/10/17 16:59 Albuterol/ Ipratropium (DuoNeb 0.5-3(2.5)mg/3ml) 3 ml Q8H PRN HHN Cough/Wheezing/SOB 01/12/17 10:00 01/17/17 09:59 01/12/17 10:26 Clonidine HCl (Catapres) 0.1 mg Q6H PRN ORAL For High Blood Pressure 01/14/17 23:15 02/13/17 23:14 Dextrose (Dextrose 50%) STAT PRN IV Hypoglycemia 01/11/17 17:00 02/10/17 16:59 Dextrose/ Electrolytes 1,000 ml @ 100 mls/hr Q10H IV 01/11/17 17:30 02/10/17 17:29 01/15/17 01:30 Diphenhydramine HCl (Benadryl) 25 mg Q6H PRN ORAL Itching/Pruritis 01/11/17 17:00 02/10/17 16:59 Esomeprazole Sodium (Nexium I.v.) 40 mg Q12HR IVP 01/11/17 21:00 02/10/17 20:59 01/14/17 22:17 Haloperidol Lactate (Haldol) 5 mg Q6H PRN IM Agitation 01/12/17 15:30 02/11/17 15:29 01/12/17 15:28 Heparin Sodium (Porcine) (Heparin 5000 units/ml) 5,000 units EVERY 12 HOURS SUBQ 01/11/17 21:00 02/10/17 20:59 01/14/17 22:21 Hydromorphone HCl (Dilaudid) 0.5 mg Q3H PRN IVP Pain Score 1-3 01/11/17 17:00 01/18/17 16:59 Hydromorphone HCl (Dilaudid) 1 mg Q3H PRN IVP pain score 4-6 01/11/17 18:00 01/18/17 17:59 Hydromorphone HCl (Dilaudid) 2 mg Q3H PRN IVP pain score 7-10 01/11/17 17:00 01/18/17 16:59 01/14/17 21:12 Metoclopramide HCl (Reglan) 10 mg Q6H PRN IVP Nausea & Vomiting 01/11/17 17:00 02/10/17 16:59 Morphine Sulfate (Morphine Sulfate) 2 mg Q4H PRN IVP Breakthrough Pain 01/11/17 17:00 01/18/17 16:59 Nitroglycerin (Ntg) 0.4 mg Q5M X 3 DOSES PRN SL Prn Chest Pain 01/11/17 17:00 02/10/17 16:59 Ondansetron HCl (Zofran) 4 mg Q6H PRN IVP Nausea & Vomiting 01/11/17 17:00 02/10/17 16:59 01/12/17 09:34 Piperacillin Sod/ Tazobactam Sod 3.375 gm/Dextrose 110 ml @ 27.5 mls/hr EVERY 8 HOURS IVPB 01/11/17 22:00 01/16/17 21:59 01/15/17 05:48 Polyethylene Glycol (Miralax) 17 gm HSPRN PRN ORAL Constipation 01/11/17 21:00 02/10/17 20:59 Temazepam (Restoril) 15 mg HSPRN PRN ORAL Insomnia 01/11/17 17:00 01/18/17 16:59 [facility] Hospital[facility] Kelly NP Jan 15, 2017 08:37
[2017-01-15] MEDS: Heparin 5000 units/ml inj SUBQ SCH ×2 (09:26→20:58)
[2017-01-15] MEDS ORDERED: DuoNeb 0.5-3(2.5)mg/3ml neb HHN PRN (10:00)
[2017-01-15] MEDS: Esomeprazole sodium 40mg vial IVP SCH ×2 (10:26→20:53)
[2017-01-15 11:09] LABS: BASOPHILS % (AUTO) 0.9 % (0.0-2.0); EOSINOPHILS % (AUTO) 1.5 % (0.0-3.0); LYMPHOCYTES % (AUTO) 11.3 % (20.0-45.0); MEAN CORPUSCULAR HEMOGLOBIN 27.9 PG (27.0-31.0); MEAN CORPUSCULAR HGB CONC 33.3 G/DL (32.0-36.0); MEAN CORPUSCULAR VOLUME 84 FL (80-99); MEAN PLATELET VOLUME 7.3 FL (6.5-10.1); MONOCYTES % (AUTO) 11.3 % (1.0-10.0); PLATELET COUNT 334 K/UL (150-450); RED BLOOD COUNT 4.61 M/UL (4.70-6.10); RED CELL DISTRIBUTION WIDTH 18.7 % (11.6-14.8); WHITE BLOOD COUNT 7.9 K/UL (4.8-10.8)
[2017-01-15 11:28] LABS: ANION GAP 12 (5-15); CALCIUM 9.3 mg/dL (8.6-10.2); CARBON DIOXIDE 25 mEQ/L (20-30); CHLORIDE 96 mEQ/L (98-107); GLOMERULAR FILTRATION RATE > 60 mL/min (>60); HEMOLYSIS 1; POTASSIUM 4.1 mEQ/L (3.4-4.9); SODIUM 133 mEQ/L (135-145)
--- NOTE | 2017-01-15 15:14 | Infectious Diseases Prog Note ---
Assessment/Plan Assessment/Plan Assessment 61 y/o AAM s/p perforation requiring exploratory laparotomy, pyloroplasty with Alfonso patch on 01/11/17, still NPO. 1. perforated peptic ulcer 2. duodenal ulcer with secondary bacterial peritonitis. no operative cultures are pending. 3. s/p exploratory laparotomy, pyloroplasty, and alfonso patch. 4. low grade fevers, resolved 5. Leukocytosis, resolved down from peak of 19. 6. h/o cocaine abuse, nicotine dependence 7. Hiv Ab negative RECOMMENDATION: --Continue zosyn 3.375gm IV q8hr extended infusion, D#4. plan for 7-10 day post -operative course for secondary bacterial peritonitis, but once tolerating PO will plan to switch to oral ciprofloxacin 500mg q12hr and flagyl 500mg po q8hr to complete the course. s/p cefazolin x1 (01/11) --monitor temp curve --monitor WBC I am covering for Dr. Dean. Subjective Constitutional: Reports: no symptoms Respiratory: Reports: no symptoms Cardiovascular: Reports: no symptoms Gastrointestinal/Abdominal: Reports: constipation Skin: Reports: no symptoms Hematologic: Reports: no symptoms Musculoskeletal: Reports: no symptoms Allergies: Coded Allergies: No Known Allergies (Unverified , 05/07/14) Objective Vital Signs Last 24 Hour Vital Signs Date Time Temp Pulse Resp B/P (MAP) Pulse Ox O2 Delivery O2 Flow Rate FiO2 01/15/17 12:10 98.4 83 16 153/99 94 Nasal Cannula 2.0 01/15/17 08:00 98.3 78 18 146/99 98 Nasal Cannula 2.0 01/15/17 06:30 Room Air 01/15/17 06:30 90 Room Air 01/15/17 06:30 75 17 Room Air 01/15/17 04:00 98.2 69 16 149/104 95 Nasal Cannula 2.0 01/15/17 01:30 149/101 01/15/17 00:00 98.6 74 16 154/108 95 Nasal Cannula 2.0 01/14/17 21:31 83 18 Nasal Cannula 2.0 01/14/17 21:31 Nasal Cannula 2.0 28 01/14/17 21:31 93 Nasal Cannula 2.0 01/14/17 20:00 99.2 84 18 159/98 91 Room Air 01/14/17 16:06 98.1 78 18 153/96 96 Nasal Cannula 2.0 Height (Feet): 5 Height (Inches): 9.00 Weight (Pounds): 150 Objective gen: sleeping comfortably, awakens to voice heent: Ngt in place, draining scant bilious fluid, to low intermittent suction cv; rrr lungs: coarse rhonchi to lung bases b/l abd: soft, nt. abd dressing s/p ex lap in place. scant dried blood on dressing. santiago in place. yahir drain in place ext: thin, no edema, hypoactive bowel sounds skin: no rash, no petechiae. peripheral IV c/d/i. Laboratory Tests Test 01/15/17 09:30 White Blood Count 7.9 K/UL (4.8-10.8) Red Blood Count 4.61 M/UL (4.70-6.10) L Hemoglobin 12.9 G/DL (14.2-18.0) L Hematocrit 38.6 % (42.0-52.0) L Mean Corpuscular Volume 84 FL (80-99) Mean Corpuscular Hemoglobin 27.9 PG (27.0-31.0) Mean Corpuscular Hemoglobin Concent 33.3 G/DL (32.0-36.0) Red Cell Distribution Width 18.7 % (11.6-14.8) H Platelet Count 334 K/UL (150-450) Mean Platelet Volume 7.3 FL (6.5-10.1) Neutrophils (%) (Auto) 75.0 % (45.0-75.0) Lymphocytes (%) (Auto) 11.3 % (20.0-45.0) L Monocytes (%) (Auto) 11.3 % (1.0-10.0) H Eosinophils (%) (Auto) 1.5 % (0.0-3.0) Basophils (%) (Auto) 0.9 % (0.0-2.0) Sodium Level 133 mEQ/L (135-145) L Potassium Level 4.1 mEQ/L (3.4-4.9) Chloride Level 96 mEQ/L (98-107) L Carbon Dioxide Level 25 mEQ/L (20-30) Anion Gap 12 (5-15) Blood Urea Nitrogen 13 mg/dL (7-23) Creatinine 1.0 mg/dL (0.7-1.2) Estimat Glomerular Filtration Rate > 60 mL/min (>60) Glucose Level 85 mg/dL (74-106) Calcium Level 9.3 mg/dL (8.6-10.2) Prealbumin Pending Current Medications Medications (Trade) Dose Ordered Sig/Jevon Route PRN Reason Start Time Stop Time Status Last Admin Dose Admin Acetaminophen (Tylenol) 650 mg Q4H PRN ORAL fever>100.5 01/11/17 17:00 02/10/17 16:59 Acetaminophen (Tylenol) 650 mg Q4H PRN RECTAL FEVER>100.5 01/11/17 17:00 02/10/17 16:59 Al Hydroxide/Mg Hydroxide (Mylanta II) 30 ml Q6H PRN ORAL dyspepsia 01/11/17 17:00 02/10/17 16:59 Albuterol/ Ipratropium (DuoNeb 0.5-3(2.5)mg/3ml) 3 ml Q8H PRN HHN Cough/Wheezing/SOB 01/15/17 10:00 01/20/17 09:59 Clonidine HCl (Catapres) 0.1 mg Q6H PRN ORAL For High Blood Pressure 01/14/17 23:15 02/13/17 23:14 Dextrose (Dextrose 50%) STAT PRN IV Hypoglycemia 01/11/17 17:00 02/10/17 16:59 Dextrose/ Electrolytes 1,000 ml @ 100 mls/hr Q10H IV 01/11/17 17:30 02/10/17 17:29 01/15/17 01:30 Diphenhydramine HCl (Benadryl) 25 mg Q6H PRN ORAL Itching/Pruritis 01/11/17 17:00 02/10/17 16:59 Esomeprazole Sodium (Nexium I.v.) 40 mg Q12HR IVP 01/11/17 21:00 02/10/17 20:59 01/15/17 10:26 Haloperidol Lactate (Haldol) 5 mg Q6H PRN IM Agitation 01/12/17 15:30 02/11/17 15:29 01/12/17 15:28 Heparin Sodium (Porcine) (Heparin 5000 units/ml) 5,000 units EVERY 12 HOURS SUBQ 01/11/17 21:00 02/10/17 20:59 01/15/17 09:26 Hydromorphone HCl (Dilaudid) 0.5 mg Q3H PRN IVP Pain Score 1-3 01/11/17 17:00 01/18/17 16:59 Hydromorphone HCl (Dilaudid) 1 mg Q3H PRN IVP pain score 4-6 01/11/17 18:00 01/18/17 17:59 Hydromorphone HCl (Dilaudid) 2 mg Q3H PRN IVP pain score 7-10 01/11/17 17:00 01/18/17 16:59 01/14/17 21:12 Metoclopramide HCl (Reglan) 10 mg Q6H PRN IVP Nausea & Vomiting 01/11/17 17:00 02/10/17 16:59 Morphine Sulfate (Morphine Sulfate) 2 mg Q4H PRN IVP Breakthrough Pain 01/11/17 17:00 01/18/17 16:59 Nitroglycerin (Ntg) 0.4 mg Q5M X 3 DOSES PRN SL Prn Chest Pain 01/11/17 17:00 02/10/17 16:59 Ondansetron HCl (Zofran) 4 mg Q6H PRN IVP Nausea & Vomiting 01/11/17 17:00 02/10/17 16:59 01/12/17 09:34 Piperacillin Sod/ Tazobactam Sod 3.375 gm/Dextrose 110 ml @ 27.5 mls/hr EVERY 8 HOURS IVPB 01/11/17 22:00 01/16/17 21:59 01/15/17 05:48 Polyethylene Glycol (Miralax) 17 gm HSPRN PRN ORAL Constipation 01/11/17 21:00 02/10/17 20:59 Temazepam (Restoril) 15 mg HSPRN PRN ORAL Insomnia 01/11/17 17:00 01/18/17 16:59 Thee Bergeron M.D. Jan 15, 2017 15:14
--- NOTE | 2017-01-15 15:17 | General Surgery Progress Note ---
General Surgery-Progress Note Subjective Procedure Performed exploratory laparotomy, pyloroplasty with Alfonso patch Symptoms: improved Objective Last 24 Hour Vital Signs Date Time Temp Pulse Resp B/P (MAP) Pulse Ox O2 Delivery O2 Flow Rate FiO2 01/15/17 12:10 98.4 83 16 153/99 94 Nasal Cannula 2.0 01/15/17 08:00 98.3 78 18 146/99 98 Nasal Cannula 2.0 01/15/17 06:30 Room Air 01/15/17 06:30 90 Room Air 01/15/17 06:30 75 17 Room Air 01/15/17 04:00 98.2 69 16 149/104 95 Nasal Cannula 2.0 01/15/17 01:30 149/101 01/15/17 00:00 98.6 74 16 154/108 95 Nasal Cannula 2.0 01/14/17 21:31 83 18 Nasal Cannula 2.0 28 01/14/17 21:31 Nasal Cannula 2.0 28 01/14/17 21:31 93 Nasal Cannula 2.0 28 01/14/17 20:00 99.2 84 18 159/98 91 Room Air 01/14/17 16:06 98.1 78 18 153/96 96 Nasal Cannula 2.0 Dressing: dry Drains: yahir Respiratory: clear Abdomen: soft, non-tender, present bowel sounds Extremities: no tenderness Laboratory Tests Test 01/15/17 09:30 White Blood Count 7.9 K/UL (4.8-10.8) Red Blood Count 4.61 M/UL (4.70-6.10) L Hemoglobin 12.9 G/DL (14.2-18.0) L Hematocrit 38.6 % (42.0-52.0) L Mean Corpuscular Volume 84 FL (80-99) Mean Corpuscular Hemoglobin 27.9 PG (27.0-31.0) Mean Corpuscular Hemoglobin Concent 33.3 G/DL (32.0-36.0) Red Cell Distribution Width 18.7 % (11.6-14.8) H Platelet Count 334 K/UL (150-450) Mean Platelet Volume 7.3 FL (6.5-10.1) Neutrophils (%) (Auto) 75.0 % (45.0-75.0) Lymphocytes (%) (Auto) 11.3 % (20.0-45.0) L Monocytes (%) (Auto) 11.3 % (1.0-10.0) H Eosinophils (%) (Auto) 1.5 % (0.0-3.0) Basophils (%) (Auto) 0.9 % (0.0-2.0) Sodium Level 133 mEQ/L (135-145) L Potassium Level 4.1 mEQ/L (3.4-4.9) Chloride Level 96 mEQ/L (98-107) L Carbon Dioxide Level 25 mEQ/L (20-30) Anion Gap 12 (5-15) Blood Urea Nitrogen 13 mg/dL (7-23) Creatinine 1.0 mg/dL (0.7-1.2) Estimat Glomerular Filtration Rate > 60 mL/min (>60) Glucose Level 85 mg/dL (74-106) Calcium Level 9.3 mg/dL (8.6-10.2) Prealbumin Pending Assessment Post-op Diagnosis perforated peptic ulcer Plan Additional Comments D/C NG tube AGNIESZKA PEREZ Jan 15, 2017 15:17
[2017-01-16 04:00] VITALS: BP 143/97
[2017-01-16] MEDS: D5 1/2NS w/KCl 20mEq 1,000 ML IV SCH ×2 (05:01→14:16)
[2017-01-16] MEDS: Piperacillin/Tazobactam 3.375 GM in D5W 110 ML IVPB SCH ×3 (05:01→21:51)
[2017-01-16 07:37] LABS: BASOPHILS % (AUTO) 0.8 % (0.0-2.0); EOSINOPHILS % (AUTO) 2.7 % (0.0-3.0); LYMPHOCYTES % (AUTO) 20.7 % (20.0-45.0); MEAN CORPUSCULAR HEMOGLOBIN 27.6 PG (27.0-31.0); MEAN CORPUSCULAR VOLUME 84 FL (80-99); MEAN PLATELET VOLUME 7.1 FL (6.5-10.1); MONOCYTES % (AUTO) 8.8 % (1.0-10.0); PLATELET COUNT 333 K/UL (150-450); RED BLOOD COUNT 4.74 M/UL (4.70-6.10); WHITE BLOOD COUNT 7.1 K/UL (4.8-10.8)
[2017-01-16 08:14] LABS: ANION GAP 14 (5-15); CARBON DIOXIDE 23 mEQ/L (20-30); CHLORIDE 103 mEQ/L (98-107); GLOMERULAR FILTRATION RATE > 60 mL/min (>60); HEMOLYSIS 7; POTASSIUM 4.6 mEQ/L (3.4-4.9); SODIUM 140 mEQ/L (135-145)
[2017-01-16 08:49] VITALS: BP 162/93
[2017-01-16] MEDS: Heparin 5000 units/ml inj SUBQ SCH ×2 (09:27→21:50)
[2017-01-16] MEDS: Esomeprazole sodium 40mg vial IVP SCH ×2 (09:28→21:48)
--- NOTE | 2017-01-16 09:44 | Pulmonology Progress Note ---
Assessment/Plan Assessment/Plan ASSESSMENT perforated duodenal ulcer duodenal ulcer with secondary peritonitis s/p 01/11 exp laparotomy, penoplasty, Alfonso patch nicotine dependency Hx of cocaine abuse anemia severe protein calorie malnutrition gastritis PLAN OF CARE MS floor CL diet and advance as tolerated IVF abx ID follows IS at the bedside ambulate as tolerated PPI bid monitor FRAN drain output monitor HH and transfuse as needed to keep Hgb above 8 GI follows pain management surgery follows O2 HHN prn clinical mental health counselor on smoking cessation, not ready to quit, declined Nicotine patch urine tox screen + cocaine DVT prophylaxis dietary eval in am case discussed and evaluated by supervising physician Subjective Allergies: Coded Allergies: No Known Allergies (Unverified , 05/07/14) Subjective leukocytosis resolved, afebrile pain intermittently controlled had BM, started on CL diet, tolerates diet , no n/v/abdominal pain Objective Last 24 Hour Vital Signs Date Time Temp Pulse Resp B/P (MAP) Pulse Ox O2 Delivery O2 Flow Rate FiO2 01/16/17 08:49 99.0 81 20 162/93 96 Room Air 01/16/17 04:00 98.3 67 16 143/97 94 Room Air 01/15/17 23:19 98.3 74 16 155/98 94 Nasal Cannula 2.0 01/15/17 20:23 79 18 Room Air 01/15/17 20:23 Room Air 01/15/17 20:23 95 Room Air 01/15/17 20:00 98.3 77 16 151/98 94 Nasal Cannula 2.0 01/15/17 16:00 98.5 75 16 150/104 94 Nasal Cannula 2.0 01/15/17 12:10 98.4 83 16 153/99 94 Nasal Cannula 2.0 Intake and Output 01/16/17 01/17/17 19:00 07:00 Intake Total 360 ml Balance 360 ml Intake Oral 360 ml # Voids 1 # Bowel Movements 1 Objective General Appearance: no acute distress, awake, alert, oriented cachectic AA male HEENT: normocephalic, atraumatic, anicteric, NGT Respiratory/Chest: lungs clear - with moderate air exchange , no respiratory distress, no accessory muscle use Cardiovascular: normal rate, regular rhythm, no JVD Abdomen: normoactive bowel sounds, abdominal dressing over abdominal incision with santiago, clean, dry, FRAN drain with serosanguineous drainage Extremities: no edema, pedal pulses normal Neurologic/Psychiatric: alert, responsive Musculoskeletal: normal muscle bulk Laboratory Tests 01/16/17 06:00: White Blood Count 7.1, Red Blood Count 4.74, Hemoglobin 13.1L, Hematocrit 39.7L , Mean Corpuscular Volume 84, Mean Corpuscular Hemoglobin 27.6, Mean Corpuscular Hemoglobin Concent 33.0, Red Cell Distribution Width 19.0H, Platelet Count 333, Mean Platelet Volume 7.1, Neutrophils (%) (Auto) 67.0, Lymphocytes (%) (Auto) 20.7, Monocytes (%) (Auto) 8.8, Eosinophils (%) (Auto) 2.7, Basophils (%) (Auto) 0.8, Sodium Level 140, Potassium Level 4.6, Chloride Level 103, Carbon Dioxide Level 23, Anion Gap 14, Blood Urea Nitrogen 10, Creatinine 1.0, Estimat Glomerular Filtration Rate > 60, Glucose Level 105, Calcium Level 9.0 Current Medications Medications (Trade) Dose Ordered Sig/Jevon Route PRN Reason Start Time Stop Time Status Last Admin Dose Admin Acetaminophen (Tylenol) 650 mg Q4H PRN ORAL fever>100.5 01/11/17 17:00 02/10/17 16:59 Acetaminophen (Tylenol) 650 mg Q4H PRN RECTAL FEVER>100.5 01/11/17 17:00 02/10/17 16:59 Al Hydroxide/Mg Hydroxide (Mylanta II) 30 ml Q6H PRN ORAL dyspepsia 01/11/17 17:00 02/10/17 16:59 Albuterol/ Ipratropium (DuoNeb 0.5-3(2.5)mg/3ml) 3 ml Q8H PRN HHN Cough/Wheezing/SOB 01/15/17 10:00 01/20/17 09:59 Clonidine HCl (Catapres) 0.1 mg Q6H PRN ORAL For High Blood Pressure 01/14/17 23:15 02/13/17 23:14 Dextrose (Dextrose 50%) STAT PRN IV Hypoglycemia 01/11/17 17:00 02/10/17 16:59 Dextrose/ Electrolytes 1,000 ml @ 100 mls/hr Q10H IV 01/11/17 17:30 02/10/17 17:29 01/16/17 05:01 Diphenhydramine HCl (Benadryl) 25 mg Q6H PRN ORAL Itching/Pruritis 01/11/17 17:00 02/10/17 16:59 Esomeprazole Sodium (Nexium I.v.) 40 mg Q12HR IVP 01/11/17 21:00 02/10/17 20:59 01/16/17 09:28 Haloperidol Lactate (Haldol) 5 mg Q6H PRN IM Agitation 01/12/17 15:30 02/11/17 15:29 01/12/17 15:28 Heparin Sodium (Porcine) (Heparin 5000 units/ml) 5,000 units EVERY 12 HOURS SUBQ 01/11/17 21:00 02/10/17 20:59 01/16/17 09:27 Hydromorphone HCl (Dilaudid) 0.5 mg Q3H PRN IVP Pain Score 1-3 01/11/17 17:00 01/18/17 16:59 Hydromorphone HCl (Dilaudid) 1 mg Q3H PRN IVP pain score 4-6 01/11/17 18:00 01/18/17 17:59 Hydromorphone HCl (Dilaudid) 2 mg Q3H PRN IVP pain score 7-10 01/11/17 17:00 01/18/17 16:59 01/14/17 21:12 Metoclopramide HCl (Reglan) 10 mg Q6H PRN IVP Nausea & Vomiting 01/11/17 17:00 02/10/17 16:59 Morphine Sulfate (Morphine Sulfate) 2 mg Q4H PRN IVP Breakthrough Pain 01/11/17 17:00 01/18/17 16:59 Nitroglycerin (Ntg) 0.4 mg Q5M X 3 DOSES PRN SL Prn Chest Pain 01/11/17 17:00 02/10/17 16:59 Ondansetron HCl (Zofran) 4 mg Q6H PRN IVP Nausea & Vomiting 01/11/17 17:00 02/10/17 16:59 01/12/17 09:34 Piperacillin Sod/ Tazobactam Sod 3.375 gm/Dextrose 110 ml @ 27.5 mls/hr EVERY 8 HOURS IVPB 01/11/17 22:00 01/16/17 21:59 01/16/17 05:01 Polyethylene Glycol (Miralax) 17 gm HSPRN PRN ORAL Constipation 01/11/17 21:00 02/10/17 20:59 Temazepam (Restoril) 15 mg HSPRN PRN ORAL Insomnia 01/11/17 17:00 01/18/17 16:59 Artemio ([facility])Angella NP Jan 16, 2017 09:44
--- NOTE | 2017-01-16 11:46 | General Surgery Progress Note ---
General Surgery-Progress Note Subjective Procedure Performed exploratory laparotomy, pyloroplasty with Alfonso patch Symptoms: improved, BM Objective Last 24 Hour Vital Signs Date Time Temp Pulse Resp B/P (MAP) Pulse Ox O2 Delivery O2 Flow Rate FiO2 01/16/17 08:49 99.0 81 20 162/93 96 Room Air 01/16/17 04:00 98.3 67 16 143/97 94 Room Air 01/15/17 23:19 98.3 74 16 155/98 94 Nasal Cannula 2.0 01/15/17 20:23 79 18 Room Air 01/15/17 20:23 Room Air 01/15/17 20:23 95 Room Air 01/15/17 20:00 98.3 77 16 151/98 94 Nasal Cannula 2.0 01/15/17 16:00 98.5 75 16 150/104 94 Nasal Cannula 2.0 01/15/17 12:10 98.4 83 16 153/99 94 Nasal Cannula 2.0 I&O Intake and Output 01/16/17 01/17/17 19:00 07:00 Intake Total 560 ml Output Total 330 ml Balance 230 ml Intake Oral 360 ml IV Total 200 ml Output Urine Total 300 ml Drainage Total 30 ml # Voids 1 # Bowel Movements 1 Wound: clean, intact Drains: yahir Respiratory: clear Abdomen: soft, flat, non-tender, present bowel sounds Extremities: no tenderness Laboratory Tests Test 01/16/17 06:00 White Blood Count 7.1 K/UL (4.8-10.8) Red Blood Count 4.74 M/UL (4.70-6.10) Hemoglobin 13.1 G/DL (14.2-18.0) L Hematocrit 39.7 % (42.0-52.0) L Mean Corpuscular Volume 84 FL (80-99) Mean Corpuscular Hemoglobin 27.6 PG (27.0-31.0) Mean Corpuscular Hemoglobin Concent 33.0 G/DL (32.0-36.0) Red Cell Distribution Width 19.0 % (11.6-14.8) H Platelet Count 333 K/UL (150-450) Mean Platelet Volume 7.1 FL (6.5-10.1) Neutrophils (%) (Auto) 67.0 % (45.0-75.0) Lymphocytes (%) (Auto) 20.7 % (20.0-45.0) Monocytes (%) (Auto) 8.8 % (1.0-10.0) Eosinophils (%) (Auto) 2.7 % (0.0-3.0) Basophils (%) (Auto) 0.8 % (0.0-2.0) Sodium Level 140 mEQ/L (135-145) Potassium Level 4.6 mEQ/L (3.4-4.9) Chloride Level 103 mEQ/L (98-107) Carbon Dioxide Level 23 mEQ/L (20-30) Anion Gap 14 (5-15) Blood Urea Nitrogen 10 mg/dL (7-23) Creatinine 1.0 mg/dL (0.7-1.2) Estimat Glomerular Filtration Rate > 60 mL/min (>60) Glucose Level 105 mg/dL (74-106) Calcium Level 9.0 mg/dL (8.6-10.2) Assessment Post-op Diagnosis perforated peptic ulcer Plan Additional Comments diet AGNIESZKA PEREZ Jan 16, 2017 11:46
[2017-01-16 12:29] VITALS: BP 162/100
[2017-01-16 16:00] VITALS: BP 143/89
[2017-01-16] MEDS ORDERED: NS 550ML IV ONE (18:11)
[2017-01-16] MEDS ORDERED: Tubing IV Secondary IV ONE (18:11)
[2017-01-16] MEDS ORDERED: D5 1/2NS 1000ml IV ONE (18:11)
[2017-01-16 20:00] VITALS: BP 171/89
[2017-01-17] VITALS: BP 126/76
[2017-01-17] MEDS: D5 1/2NS w/KCl 20mEq 1,000 ML IV SCH (03:02)
[2017-01-17 04:00] VITALS: BP 128/87
[2017-01-17 05:17] LABS: LYMPHOCYTES % (AUTO) 35.3 % (20.0-45.0); MEAN CORPUSCULAR HEMOGLOBIN 27.7 PG (27.0-31.0); MEAN CORPUSCULAR VOLUME 84 FL (80-99); MONOCYTES % (AUTO) 8.2 % (1.0-10.0); NEUTROPHILS % (AUTO) 50.5 % (45.0-75.0); PLATELET COUNT 357 K/UL (150-450); RED BLOOD COUNT 4.38 M/UL (4.70-6.10); RED CELL DISTRIBUTION WIDTH 18.8 % (11.6-14.8); WHITE BLOOD COUNT 7.4 K/UL (4.8-10.8)
[2017-01-17 05:36] LABS: ANION GAP 10 (5-15); CALCIUM 9.5 mg/dL (8.6-10.2); CARBON DIOXIDE 26 mEQ/L (20-30); CHLORIDE 104 mEQ/L (98-107); CREATININE 1.1 mg/dL (0.7-1.2); GLOMERULAR FILTRATION RATE > 60 mL/min (>60); HEMOLYSIS 1; POTASSIUM 4.7 mEQ/L (3.4-4.9); SODIUM 140 mEQ/L (135-145)
[2017-01-17] MEDS: Piperacillin/Tazobactam 3.375 GM in D5W 110 ML IVPB SCH ×3 (06:23→22:31)
[2017-01-17 08:00] VITALS: BP 135/87
[2017-01-17] MEDS: Esomeprazole sodium 40mg vial IVP SCH ×2 (08:29→21:37)
[2017-01-17] MEDS: Heparin 5000 units/ml inj SUBQ SCH ×2 (08:33→21:34)
[2017-01-17] MEDS: HYDROmorphone 1mg/ml Carpuject IVP PRN ×3 (08:45→21:46)
--- NOTE | 2017-01-17 10:57 | GI Progress Note ---
Assessment/Plan Problems: (1) Gastritis ICD Codes: K29.70 - Gastritis, unspecified, without bleeding SNOMED: 1224890 (2) Anemia ICD Codes: D64.9 - Anemia, unspecified SNOMED: 960407701 (3) Perforated abdominal viscus SNOMED: 480853264 (4) Protein-calorie malnutrition, severe ICD Codes: E43 - Unspecified severe protein-calorie malnutrition SNOMED: 161796354 (5) GERD (gastroesophageal reflux disease) ICD Codes: K21.9 - Gastro-esophageal reflux disease without esophagitis SNOMED: 317963486 (6) Gastritis ICD Codes: K29.70 - Gastritis, unspecified, without bleeding SNOMED: 8009015 (7) Cocaine abuse ICD Codes: F14.10 - Cocaine abuse, uncomplicated SNOMED: 39640309, 361274226 Status: stable, progressing Status Narrative Discussed with Dr. Umanzor. Assessment/Plan Endoscopy Procedure Note Indication for Procedure: anemia Procedures Performed: EGD Operative Findings/Diagnosis: ABHILASH Hill - Jun 23, 2016 10:[address] reviewed >> Pneumoperitoneum compatible with acute/recent bowel perforation, site and etiology indeterminate, see full report. s/p exploratory laparotomy, pyloroplasty with Alfonso patch fu surgical recs FLD, adv per surgery cont NGT to LIS ppi BID monitor H&H, transfuse prn pain mgmt fu labs Subjective Subjective hungry Objective Last 24 Hour Vital Signs Date Time Temp Pulse Resp B/P (MAP) Pulse Ox O2 Delivery O2 Flow Rate FiO2 01/17/17 09:15 96.5 01/17/17 08:16 Room Air 01/17/17 08:16 93 Room Air 01/17/17 08:16 70 20 Room Air 01/17/17 08:00 96.5 60 20 135/87 96 Room Air 01/17/17 04:00 96.6 69 17 128/87 100 Room Air 01/17/17 01:21 98.4 01/17/17 00:00 98.0 61 18 126/76 96 Room Air 01/16/17 20:00 98.4 72 18 171/89 92 Room Air 01/16/17 17:51 67 20 Room Air 01/16/17 17:50 Room Air 01/16/17 17:50 94 Room Air 01/16/17 16:00 97.0 89 20 143/89 98 Room Air 01/16/17 12:29 98.1 70 20 162/100 97 Room Air Intake and Output 01/17/17 01/18/17 19:00 07:00 Intake Total 360 ml Balance 360 ml Intake Oral 360 ml Laboratory Tests Test 01/17/17 04:50 White Blood Count 7.4 K/UL (4.8-10.8) Red Blood Count 4.38 M/UL (4.70-6.10) L Hemoglobin 12.1 G/DL (14.2-18.0) L Hematocrit 36.7 % (42.0-52.0) L Mean Corpuscular Volume 84 FL (80-99) Mean Corpuscular Hemoglobin 27.7 PG (27.0-31.0) Mean Corpuscular Hemoglobin Concent 33.0 G/DL (32.0-36.0) Red Cell Distribution Width 18.8 % (11.6-14.8) H Platelet Count 357 K/UL (150-450) Mean Platelet Volume 7.0 FL (6.5-10.1) Neutrophils (%) (Auto) 50.5 % (45.0-75.0) Lymphocytes (%) (Auto) 35.3 % (20.0-45.0) Monocytes (%) (Auto) 8.2 % (1.0-10.0) Eosinophils (%) (Auto) 5.0 % (0.0-3.0) H Basophils (%) (Auto) 1.0 % (0.0-2.0) Sodium Level 140 mEQ/L (135-145) Potassium Level 4.7 mEQ/L (3.4-4.9) Chloride Level 104 mEQ/L (98-107) Carbon Dioxide Level 26 mEQ/L (20-30) Anion Gap 10 (5-15) Blood Urea Nitrogen 8 mg/dL (7-23) Creatinine 1.1 mg/dL (0.7-1.2) Estimat Glomerular Filtration Rate > 60 mL/min (>60) Glucose Level 104 mg/dL (74-106) Calcium Level 9.5 mg/dL (8.6-10.2) Height (Feet): 5 Height (Inches): 9.00 Weight (Pounds): 150 General Appearance: no apparent distress, alert, thin Cardiovascular: normal rate Respiratory/Chest: normal breath sounds, no respiratory distress Abdominal Exam: normal bowel sounds, non tender, soft, incision site Extremities: normal range of motion Maria A Zheng N.P. Jan 17, 2017 10:57
[2017-01-17 12:00] VITALS: BP 139/85
--- NOTE | 2017-01-17 14:16 | Pulmonology Progress Note ---
Assessment/Plan Problems: (1) Perforated abdominal viscus (2) Protein-calorie malnutrition, severe (3) Cocaine abuse Assessment/Plan advance diet Iv fluids analgesics continue abx check electrolytes Subjective ROS Limited/Unobtainable: No Constitutional: Reports: no symptoms HEENT: Repors: no symptoms Respiratory: Reports: no symptoms Allergies: Coded Allergies: No Known Allergies (Unverified , 05/07/14) Objective Last 24 Hour Vital Signs Date Time Temp Pulse Resp B/P (MAP) Pulse Ox O2 Delivery O2 Flow Rate FiO2 01/17/17 12:00 96.9 54 19 139/85 95 Room Air 01/17/17 09:15 96.5 01/17/17 08:16 Room Air 01/17/17 08:16 93 Room Air 01/17/17 08:16 70 20 Room Air 21 01/17/17 08:00 96.5 60 20 135/87 96 Room Air 01/17/17 04:00 96.6 69 17 128/87 100 Room Air 01/17/17 01:21 98.4 01/17/17 00:00 98.0 61 18 126/76 96 Room Air 01/16/17 20:00 98.4 72 18 171/89 92 Room Air 01/16/17 17:51 67 20 Room Air 21 01/16/17 17:50 Room Air 21 01/16/17 17:50 94 Room Air 21 01/16/17 16:00 97.0 89 20 143/89 98 Room Air Intake and Output 01/17/17 01/18/17 19:00 07:00 Intake Total 720 ml Balance 720 ml Intake Oral 720 ml # Voids 1 General Appearance: WD/WN HEENT: normocephalic, atraumatic Respiratory/Chest: chest wall non-tender, lungs clear Cardiovascular: normal rate Abdomen: soft, non tender, no organomegaly Extremities: no cyanosis Skin: no lesions Laboratory Tests 01/17/17 04:50: White Blood Count 7.4, Red Blood Count 4.38L, Hemoglobin 12.1L, Hematocrit 36.7L , Mean Corpuscular Volume 84, Mean Corpuscular Hemoglobin 27.7, Mean Corpuscular Hemoglobin Concent 33.0, Red Cell Distribution Width 18.8H, Platelet Count 357, Mean Platelet Volume 7.0, Neutrophils (%) (Auto) 50.5, Lymphocytes (%) (Auto) 35.3, Monocytes (%) (Auto) 8.2, Eosinophils (%) (Auto) 5.0H, Basophils (%) (Auto) 1.0, Sodium Level 140, Potassium Level 4.7, Chloride Level 104, Carbon Dioxide Level 26, Anion Gap 10, Blood Urea Nitrogen 8, Creatinine 1.1, Estimat Glomerular Filtration Rate > 60, Glucose Level 104, Calcium Level 9.5 Current Medications Medications (Trade) Dose Ordered Sig/Jevon Route PRN Reason Start Time Stop Time Status Last Admin Dose Admin Acetaminophen (Tylenol) 650 mg Q4H PRN ORAL fever>100.5 01/11/17 17:00 02/10/17 16:59 Acetaminophen (Tylenol) 650 mg Q4H PRN RECTAL FEVER>100.5 01/11/17 17:00 02/10/17 16:59 Al Hydroxide/Mg Hydroxide (Mylanta II) 30 ml Q6H PRN ORAL dyspepsia 01/11/17 17:00 02/10/17 16:59 Albuterol/ Ipratropium (DuoNeb 0.5-3(2.5)mg/3ml) 3 ml Q8H PRN HHN Cough/Wheezing/SOB 01/15/17 10:00 01/20/17 09:59 Clonidine HCl (Catapres) 0.1 mg Q6H PRN ORAL For High Blood Pressure 01/14/17 23:15 02/13/17 23:14 Dextrose (Dextrose 50%) STAT PRN IV Hypoglycemia 01/11/17 17:00 02/10/17 16:59 Diphenhydramine HCl (Benadryl) 25 mg Q6H PRN ORAL Itching/Pruritis 01/11/17 17:00 02/10/17 16:59 Esomeprazole Sodium (Nexium I.v.) 40 mg Q12HR IVP 01/11/17 21:00 02/10/17 20:59 01/17/17 08:29 Haloperidol Lactate (Haldol) 5 mg Q6H PRN IM Agitation 01/12/17 15:30 02/11/17 15:29 01/12/17 15:28 Heparin Sodium (Porcine) (Heparin 5000 units/ml) 5,000 units EVERY 12 HOURS SUBQ 01/11/17 21:00 02/10/17 20:59 01/17/17 08:33 Hydromorphone HCl (Dilaudid) 0.5 mg Q3H PRN IVP Pain Score 1-3 01/11/17 17:00 01/18/17 16:59 Hydromorphone HCl (Dilaudid) 1 mg Q3H PRN IVP pain score 4-6 01/11/17 18:00 01/18/17 17:59 01/17/17 14:09 Hydromorphone HCl (Dilaudid) 2 mg Q3H PRN IVP pain score 7-10 01/11/17 17:00 01/18/17 16:59 01/17/17 00:51 Metoclopramide HCl (Reglan) 10 mg Q6H PRN IVP Nausea & Vomiting 01/11/17 17:00 02/10/17 16:59 Morphine Sulfate (Morphine Sulfate) 2 mg Q4H PRN IVP Breakthrough Pain 01/11/17 17:00 01/18/17 16:59 Nitroglycerin (Ntg) 0.4 mg Q5M X 3 DOSES PRN SL Prn Chest Pain 01/11/17 17:00 02/10/17 16:59 Ondansetron HCl (Zofran) 4 mg Q6H PRN IVP Nausea & Vomiting 01/11/17 17:00 02/10/17 16:59 01/12/17 09:34 Piperacillin Sod/ Tazobactam Sod 3.375 gm/Dextrose 110 ml @ 27.5 mls/hr EVERY 8 HOURS IVPB 01/11/17 22:00 01/18/17 21:59 01/17/17 14:09 Polyethylene Glycol (Miralax) 17 gm HSPRN PRN ORAL Constipation 01/11/17 21:00 02/10/17 20:59 Temazepam (Restoril) 15 mg HSPRN PRN ORAL Insomnia 01/11/17 17:00 01/18/17 16:59 DILIP RASHEED Jan 17, 2017 14:16
[2017-01-17 16:00] VITALS: BP 123/87
--- NOTE | 2017-01-17 16:17 | General Surgery Progress Note ---
General Surgery-Progress Note Subjective Procedure Performed exploratory laparotomy, pyloroplasty with Alfonso patch Symptoms: improved, BM Objective Last 24 Hour Vital Signs Date Time Temp Pulse Resp B/P (MAP) Pulse Ox O2 Delivery O2 Flow Rate FiO2 01/17/17 14:39 96.9 01/17/17 12:00 96.9 54 19 139/85 95 Room Air 01/17/17 08:16 Room Air 01/17/17 08:16 93 Room Air 01/17/17 08:16 70 20 Room Air 21 01/17/17 08:00 96.5 60 20 135/87 96 Room Air 01/17/17 04:00 96.6 69 17 128/87 100 Room Air 01/17/17 01:21 98.4 01/17/17 00:00 98.0 61 18 126/76 96 Room Air 01/16/17 20:00 98.4 72 18 171/89 92 Room Air 01/16/17 17:51 67 20 Room Air 21 01/16/17 17:50 Room Air 21 01/16/17 17:50 94 Room Air 21 I&O Intake and Output 01/17/17 01/18/17 19:00 07:00 Intake Total 720 ml Balance 720 ml Intake Oral 720 ml # Voids 2 Wound: clean, intact Drains: yahir Respiratory: clear Abdomen: soft, flat, non-tender, present bowel sounds Extremities: no tenderness Laboratory Tests Test 01/17/17 04:50 White Blood Count 7.4 K/UL (4.8-10.8) Red Blood Count 4.38 M/UL (4.70-6.10) L Hemoglobin 12.1 G/DL (14.2-18.0) L Hematocrit 36.7 % (42.0-52.0) L Mean Corpuscular Volume 84 FL (80-99) Mean Corpuscular Hemoglobin 27.7 PG (27.0-31.0) Mean Corpuscular Hemoglobin Concent 33.0 G/DL (32.0-36.0) Red Cell Distribution Width 18.8 % (11.6-14.8) H Platelet Count 357 K/UL (150-450) Mean Platelet Volume 7.0 FL (6.5-10.1) Neutrophils (%) (Auto) 50.5 % (45.0-75.0) Lymphocytes (%) (Auto) 35.3 % (20.0-45.0) Monocytes (%) (Auto) 8.2 % (1.0-10.0) Eosinophils (%) (Auto) 5.0 % (0.0-3.0) H Basophils (%) (Auto) 1.0 % (0.0-2.0) Sodium Level 140 mEQ/L (135-145) Potassium Level 4.7 mEQ/L (3.4-4.9) Chloride Level 104 mEQ/L (98-107) Carbon Dioxide Level 26 mEQ/L (20-30) Anion Gap 10 (5-15) Blood Urea Nitrogen 8 mg/dL (7-23) Creatinine 1.1 mg/dL (0.7-1.2) Estimat Glomerular Filtration Rate > 60 mL/min (>60) Glucose Level 104 mg/dL (74-106) Calcium Level 9.5 mg/dL (8.6-10.2) Assessment Post-op Diagnosis perforated peptic ulcer Plan Additional Comments Drain And santiago were removed. advance diet can be dicharged tomorrow AGNIESZKA PEREZ Jan 17, 2017 16:17
[2017-01-17 20:00] VITALS: BP 129/83
--- NOTE | 2017-01-17 23:39 | Infectious Diseases Prog Note ---
Assessment/Plan Assessment/Plan Assessment 61 y/o AAM s/p perforation requiring exploratory laparotomy, pyloroplasty with Alfonso patch on 01/11/17, still NPO. 1. perforated peptic ulcer 2. duodenal ulcer with secondary bacterial peritonitis. no operative cultures are pending. 3. s/p exploratory laparotomy, pyloroplasty, and alfonso patch. 4. low grade fevers, resolved 5. Leukocytosis, resolved down from peak of 19. 6. h/o cocaine abuse, nicotine dependence 7. Hiv Ab negative RECOMMENDATION: --Continue zosyn 3.375gm IV q8hr extended infusion, D# 6 / 7, will stop AB Rx s/p cefazolin x1 (01/11) --monitor temp curve --monitor WBC Subjective Constitutional: Denies: no symptoms, fever, chills, fatigue, anorexia, drenching sweats, other Allergies: Coded Allergies: No Known Allergies (Unverified , 05/07/14) Objective Vital Signs Last 24 Hour Vital Signs Date Time Temp Pulse Resp B/P (MAP) Pulse Ox O2 Delivery O2 Flow Rate FiO2 01/17/17 20:00 98.5 60 18 129/83 93 Room Air 01/17/17 19:27 97.5 01/17/17 16:00 97.5 63 19 123/87 97 Room Air 01/17/17 14:39 96.9 01/17/17 12:00 96.9 54 19 139/85 95 Room Air 01/17/17 08:16 Room Air 01/17/17 08:16 93 Room Air 01/17/17 08:16 70 20 Room Air 21 01/17/17 08:00 96.5 60 20 135/87 96 Room Air 01/17/17 04:00 96.6 69 17 128/87 100 Room Air 01/17/17 00:00 98.0 61 18 126/76 96 Room Air Height (Feet): 5 Height (Inches): 9.00 Weight (Pounds): 150 HEENT: atraumatic Respiratory/Chest: no respiratory distress Cardiovascular: normal rate Abdomen: no organomegaly Laboratory Tests Test 01/17/17 04:50 White Blood Count 7.4 K/UL (4.8-10.8) Red Blood Count 4.38 M/UL (4.70-6.10) L Hemoglobin 12.1 G/DL (14.2-18.0) L Hematocrit 36.7 % (42.0-52.0) L Mean Corpuscular Volume 84 FL (80-99) Mean Corpuscular Hemoglobin 27.7 PG (27.0-31.0) Mean Corpuscular Hemoglobin Concent 33.0 G/DL (32.0-36.0) Red Cell Distribution Width 18.8 % (11.6-14.8) H Platelet Count 357 K/UL (150-450) Mean Platelet Volume 7.0 FL (6.5-10.1) Neutrophils (%) (Auto) 50.5 % (45.0-75.0) Lymphocytes (%) (Auto) 35.3 % (20.0-45.0) Monocytes (%) (Auto) 8.2 % (1.0-10.0) Eosinophils (%) (Auto) 5.0 % (0.0-3.0) H Basophils (%) (Auto) 1.0 % (0.0-2.0) Sodium Level 140 mEQ/L (135-145) Potassium Level 4.7 mEQ/L (3.4-4.9) Chloride Level 104 mEQ/L (98-107) Carbon Dioxide Level 26 mEQ/L (20-30) Anion Gap 10 (5-15) Blood Urea Nitrogen 8 mg/dL (7-23) Creatinine 1.1 mg/dL (0.7-1.2) Estimat Glomerular Filtration Rate > 60 mL/min (>60) Glucose Level 104 mg/dL (74-106) Calcium Level 9.5 mg/dL (8.6-10.2) Current Medications Medications (Trade) Dose Ordered Sig/Jevon Route PRN Reason Start Time Stop Time Status Last Admin Dose Admin Acetaminophen (Tylenol) 650 mg Q4H PRN ORAL fever>100.5 01/11/17 17:00 02/10/17 16:59 Acetaminophen (Tylenol) 650 mg Q4H PRN RECTAL FEVER>100.5 01/11/17 17:00 02/10/17 16:59 Al Hydroxide/Mg Hydroxide (Mylanta II) 30 ml Q6H PRN ORAL dyspepsia 01/11/17 17:00 02/10/17 16:59 Albuterol/ Ipratropium (DuoNeb 0.5-3(2.5)mg/3ml) 3 ml Q8H PRN HHN Cough/Wheezing/SOB 01/15/17 10:00 01/20/17 09:59 Clonidine HCl (Catapres) 0.1 mg Q6H PRN ORAL For High Blood Pressure 01/14/17 23:15 02/13/17 23:14 Dextrose (Dextrose 50%) STAT PRN IV Hypoglycemia 01/11/17 17:00 02/10/17 16:59 Diphenhydramine HCl (Benadryl) 25 mg Q6H PRN ORAL Itching/Pruritis 01/11/17 17:00 02/10/17 16:59 Esomeprazole Sodium (Nexium I.v.) 40 mg Q12HR IVP 01/11/17 21:00 02/10/17 20:59 01/17/17 21:37 Haloperidol Lactate (Haldol) 5 mg Q6H PRN IM Agitation 01/12/17 15:30 02/11/17 15:29 01/12/17 15:28 Heparin Sodium (Porcine) (Heparin 5000 units/ml) 5,000 units EVERY 12 HOURS SUBQ 01/11/17 21:00 02/10/17 20:59 01/17/17 21:34 Hydromorphone HCl (Dilaudid) 0.5 mg Q3H PRN IVP Pain Score 1-3 01/11/17 17:00 01/18/17 16:59 Hydromorphone HCl (Dilaudid) 1 mg Q3H PRN IVP pain score 4-6 01/11/17 18:00 01/18/17 17:59 01/17/17 21:46 Hydromorphone HCl (Dilaudid) 2 mg Q3H PRN IVP pain score 7-10 01/11/17 17:00 01/18/17 16:59 01/17/17 18:56 Metoclopramide HCl (Reglan) 10 mg Q6H PRN IVP Nausea & Vomiting 01/11/17 17:00 02/10/17 16:59 Morphine Sulfate (Morphine Sulfate) 2 mg Q4H PRN IVP Breakthrough Pain 01/11/17 17:00 01/18/17 16:59 Nitroglycerin (Ntg) 0.4 mg Q5M X 3 DOSES PRN SL Prn Chest Pain 01/11/17 17:00 02/10/17 16:59 Ondansetron HCl (Zofran) 4 mg Q6H PRN IVP Nausea & Vomiting 01/11/17 17:00 02/10/17 16:59 01/12/17 09:34 Piperacillin Sod/ Tazobactam Sod 3.375 gm/Dextrose 110 ml @ 27.5 mls/hr EVERY 8 HOURS IVPB 01/11/17 22:00 01/18/17 21:59 01/17/17 22:31 Polyethylene Glycol (Miralax) 17 gm HSPRN PRN ORAL Constipation 01/11/17 21:00 02/10/17 20:59 Temazepam (Restoril) 15 mg HSPRN PRN ORAL Insomnia 01/11/17 17:00 01/18/17 16:59 LOLA LO M.D. Jan 17, 2017 23:39
[2017-01-18 00:01] VITALS: BP 112/78
[2017-01-18 04:00] VITALS: BP 132/82
[2017-01-18] MEDS: HYDROmorphone 1mg/ml Carpuject IVP PRN (04:43)
[2017-01-18] MEDS: Piperacillin/Tazobactam 3.375 GM in D5W 110 ML IVPB SCH ×2 (05:02→14:34)
[2017-01-18 06:50] LABS: ALANINE AMINOTRANSFERASE 14 U/L (3-41); ALBUMIN/GLOBULIN RATIO 0.9 (1.0-2.7); ANION GAP 10 (5-15); ASPARTATE AMINO TRANSFERASE 20 U/L (5-40); CALCIUM 8.8 mg/dL (8.6-10.2); CARBON DIOXIDE 25 mEQ/L (20-30); CHLORIDE 103 mEQ/L (98-107); CREATININE 1.3 mg/dL (0.7-1.2); GLOMERULAR FILTRATION RATE > 60 mL/min (>60); HEMOLYSIS 7; POTASSIUM 3.9 mEQ/L (3.4-4.9); SODIUM 138 mEQ/L (135-145); TOTAL PROTEIN 6.4 g/dL (6.6-8.7)
[2017-01-18 06:58] LABS: BASOPHILS % (AUTO) 0.6 % (0.0-2.0); EOSINOPHILS % (AUTO) 4.3 % (0.0-3.0); LYMPHOCYTES % (AUTO) 23.6 % (20.0-45.0); MEAN CORPUSCULAR HEMOGLOBIN 27.8 PG (27.0-31.0); MEAN CORPUSCULAR HGB CONC 33.1 G/DL (32.0-36.0); MEAN CORPUSCULAR VOLUME 84 FL (80-99); MEAN PLATELET VOLUME 6.9 FL (6.5-10.1); MONOCYTES % (AUTO) 8.6 % (1.0-10.0); PLATELET COUNT 339 K/UL (150-450); RED BLOOD COUNT 4.04 M/UL (4.70-6.10); WHITE BLOOD COUNT 8.1 K/UL (4.8-10.8)
[2017-01-18 07:27] LABS: MAGNESIUM 1.9 mg/dL (1.7-2.5); PHOSPHORUS 4.1 mg/dL (2.5-4.8)
[2017-01-18 08:11] VITALS: BP 126/79
[2017-01-18] MEDS: Esomeprazole sodium 40mg vial IVP SCH (08:38)
[2017-01-18] MEDS: Heparin 5000 units/ml inj SUBQ SCH (08:46)
--- NOTE | 2017-01-18 10:07 | GI Progress Note ---
Assessment/Plan Problems: (1) Gastritis ICD Codes: K29.70 - Gastritis, unspecified, without bleeding SNOMED: 9267715 (2) Anemia ICD Codes: D64.9 - Anemia, unspecified SNOMED: 492396468 (3) Perforated abdominal viscus SNOMED: 463422729 (4) Protein-calorie malnutrition, severe ICD Codes: E43 - Unspecified severe protein-calorie malnutrition SNOMED: 759687703 (5) GERD (gastroesophageal reflux disease) ICD Codes: K21.9 - Gastro-esophageal reflux disease without esophagitis SNOMED: 110778158 (6) Gastritis ICD Codes: K29.70 - Gastritis, unspecified, without bleeding SNOMED: 7213880 (7) Cocaine abuse ICD Codes: F14.10 - Cocaine abuse, uncomplicated SNOMED: 80364728, 562047891 Status: doing well, stable Status Narrative Discussed with Dr. Umanzor. Assessment/Plan Endoscopy Procedure Note Indication for Procedure: anemia Procedures Performed: EGD Operative Findings/Diagnosis: ABHILASH Hill - Jun 23, 2016 10:[address] reviewed >> Pneumoperitoneum compatible with acute/recent bowel perforation, site and etiology indeterminate, see full report. s/p exploratory laparotomy, pyloroplasty with Alfonso patch clear for DC per GI standpoint fu surgical recs regular diet, tolerating ppi BID monitor H&H, transfuse prn pain mgmt fu labs Subjective Subjective no symptoms wants to go home Objective Last 24 Hour Vital Signs Date Time Temp Pulse Resp B/P (MAP) Pulse Ox O2 Delivery O2 Flow Rate FiO2 01/18/17 08:11 98.1 71 21 126/79 93 Room Air 01/18/17 04:00 98.4 55 20 132/82 94 Room Air 01/18/17 00:01 98.4 65 19 112/78 91 Room Air 01/17/17 21:17 94 Nasal Cannula 2.0 01/17/17 21:17 Nasal Cannula 2.0 01/17/17 21:17 53 16 Nasal Cannula 2.0 01/17/17 20:00 98.5 60 18 129/83 93 Room Air 01/17/17 19:27 97.5 01/17/17 16:00 97.5 63 19 123/87 97 Room Air 01/17/17 14:39 96.9 01/17/17 12:00 96.9 54 19 139/85 95 Room Air Intake and Output 01/18/17 01/19/17 19:00 07:00 Intake Total 240 ml Balance 240 ml Intake Oral 240 ml # Voids 1 Laboratory Tests Test 01/18/17 05:20 White Blood Count 8.1 K/UL (4.8-10.8) Red Blood Count 4.04 M/UL (4.70-6.10) L Hemoglobin 11.2 G/DL (14.2-18.0) L Hematocrit 34.0 % (42.0-52.0) L Mean Corpuscular Volume 84 FL (80-99) Mean Corpuscular Hemoglobin 27.8 PG (27.0-31.0) Mean Corpuscular Hemoglobin Concent 33.1 G/DL (32.0-36.0) Red Cell Distribution Width 19.0 % (11.6-14.8) H Platelet Count 339 K/UL (150-450) Mean Platelet Volume 6.9 FL (6.5-10.1) Neutrophils (%) (Auto) 63.0 % (45.0-75.0) Lymphocytes (%) (Auto) 23.6 % (20.0-45.0) Monocytes (%) (Auto) 8.6 % (1.0-10.0) Eosinophils (%) (Auto) 4.3 % (0.0-3.0) H Basophils (%) (Auto) 0.6 % (0.0-2.0) Sodium Level 138 mEQ/L (135-145) Potassium Level 3.9 mEQ/L (3.4-4.9) Chloride Level 103 mEQ/L (98-107) Carbon Dioxide Level 25 mEQ/L (20-30) Anion Gap 10 (5-15) Blood Urea Nitrogen 13 mg/dL (7-23) Creatinine 1.3 mg/dL (0.7-1.2) H Estimat Glomerular Filtration Rate > 60 mL/min (>60) Glucose Level 81 mg/dL (74-106) Calcium Level 8.8 mg/dL (8.6-10.2) Phosphorus Level 4.1 mg/dL (2.5-4.8) Magnesium Level 1.9 mg/dL (1.7-2.5) Total Bilirubin 0.3 mg/dL (0.0-1.2) Aspartate Amino Transf (AST/SGOT) 20 U/L (5-40) Alanine Aminotransferase (ALT/SGPT) 14 U/L (3-41) Alkaline Phosphatase 61 U/L (40-129) Total Protein 6.4 g/dL (6.6-8.7) L Albumin 3.1 g/dL (3.5-5.2) L Globulin 3.3 g/dL Albumin/Globulin Ratio 0.9 (1.0-2.7) L Height (Feet): 5 Height (Inches): 9.00 Weight (Pounds): 150 General Appearance: no apparent distress, alert, thin Cardiovascular: normal rate Respiratory/Chest: normal breath sounds, no respiratory distress Abdominal Exam: incision site - mid abdomen Extremities: normal range of motion Maria A Zheng N.P. Jan 18, 2017 10:07
[2017-01-18 11:53] VITALS: BP 147/84
[2017-01-18 16:00] VITALS: BP 144/88
--- NOTE | 2017-01-18 19:05 | Pulmonology Progress Note ---
Assessment/Plan Problems: (1) Perforated abdominal viscus (2) Protein-calorie malnutrition, severe (3) Cocaine abuse Assessment/Plan tolerating diet Iv fluids analgesics h2 blockers cleared for discharge Subjective ROS Limited/Unobtainable: No Constitutional: Reports: no symptoms HEENT: Repors: no symptoms Respiratory: Reports: no symptoms Cardiovascular: Reports: no symptoms Allergies: Coded Allergies: No Known Allergies (Unverified , 05/07/14) Objective Last 24 Hour Vital Signs Date Time Temp Pulse Resp B/P (MAP) Pulse Ox O2 Delivery O2 Flow Rate FiO2 01/18/17 16:00 98.4 67 20 144/88 97 Room Air 01/18/17 11:53 97.4 62 20 147/84 93 Room Air 01/18/17 08:11 98.1 71 21 126/79 93 Room Air 01/18/17 06:30 Nasal Cannula 2.0 01/18/17 06:30 71 16 Nasal Cannula 2.0 01/18/17 06:30 94 Nasal Cannula 2.0 01/18/17 04:00 98.4 55 20 132/82 94 Room Air 01/18/17 00:01 98.4 65 19 112/78 91 Room Air 01/17/17 21:17 94 Nasal Cannula 2.0 01/17/17 21:17 Nasal Cannula 2.0 01/17/17 21:17 53 16 Nasal Cannula 2.0 01/17/17 20:00 98.5 60 18 129/83 93 Room Air 01/17/17 19:27 97.5 Intake and Output 01/18/17 01/19/17 19:00 07:00 Intake Total 860 ml Balance 860 ml Intake Oral 860 ml # Voids 3 General Appearance: WD/WN HEENT: normocephalic, anicteric Respiratory/Chest: chest wall non-tender, lungs clear Cardiovascular: normal peripheral pulses, normal rate Abdomen: normal bowel sounds, soft, non tender Extremities: no cyanosis Skin: no rash 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, no motor/sensory deficits Laboratory Tests 01/18/17 05:20: White Blood Count 8.1, Red Blood Count 4.04L, Hemoglobin 11.2L, Hematocrit 34.0L , Mean Corpuscular Volume 84, Mean Corpuscular Hemoglobin 27.8, Mean Corpuscular Hemoglobin Concent 33.1, Red Cell Distribution Width 19.0H, Platelet Count 339, Mean Platelet Volume 6.9, Neutrophils (%) (Auto) 63.0, Lymphocytes (%) (Auto) 23.6, Monocytes (%) (Auto) 8.6, Eosinophils (%) (Auto) 4.3H, Basophils (%) (Auto) 0.6, Sodium Level 138, Potassium Level 3.9, Chloride Level 103, Carbon Dioxide Level 25, Anion Gap 10, Blood Urea Nitrogen 13, Creatinine 1.3H, Estimat Glomerular Filtration Rate > 60, Glucose Level 81, Calcium Level 8.8, Phosphorus Level 4.1, Magnesium Level 1.9, Total Bilirubin 0.3, Aspartate Amino Transf (AST/SGOT) 20, Alanine Aminotransferase (ALT/SGPT) 14, Alkaline Phosphatase 61, Total Protein 6.4L, Albumin 3.1L, Globulin 3.3, Albumin/Globulin Ratio 0.9L DILIP RASHEED Jan 18, 2017 19:05
--- NOTE | 2017-01-18 21:25 | Infectious Diseases Prog Note ---
Assessment/Plan Assessment/Plan Assessment 61 y/o AAM s/p perforation requiring exploratory laparotomy, pyloroplasty with Alfonso patch on 01/11/17, still NPO. 1. perforated peptic ulcer 2. duodenal ulcer with secondary bacterial peritonitis. no operative cultures are pending. 3. s/p exploratory laparotomy, pyloroplasty, and alfonso patch. 4. low grade fevers, resolved 5. Leukocytosis, resolved down from peak of 19. 6. h/o cocaine abuse, nicotine dependence 7. Hiv Ab negative RECOMMENDATION: --Continue zosyn 3.375gm IV q8hr extended infusion, D# 7 / , ok to DC pt off of AB Rx s/p cefazolin x1 (01/11) --monitor temp curve --monitor WBC Subjective Constitutional: Denies: no symptoms, fever, chills, fatigue, anorexia, drenching sweats, other Allergies: Coded Allergies: No Known Allergies (Unverified , 05/07/14) Objective Vital Signs Last 24 Hour Vital Signs Date Time Temp Pulse Resp B/P (MAP) Pulse Ox O2 Delivery O2 Flow Rate FiO2 01/18/17 16:00 98.4 67 20 144/88 97 Room Air 01/18/17 11:53 97.4 62 20 147/84 93 Room Air 01/18/17 08:11 98.1 71 21 126/79 93 Room Air 01/18/17 06:30 Nasal Cannula 2.0 01/18/17 06:30 71 16 Nasal Cannula 2.0 01/18/17 06:30 94 Nasal Cannula 2.0 01/18/17 04:00 98.4 55 20 132/82 94 Room Air 01/18/17 00:01 98.4 65 19 112/78 91 Room Air Height (Feet): 5 Height (Inches): 9.00 Weight (Pounds): 150 HEENT: anicteric Respiratory/Chest: no accessory muscle use Cardiovascular: no gallop/murmur Abdomen: no organomegaly Extremities: no clubbing Laboratory Tests Test 01/18/17 05:20 White Blood Count 8.1 K/UL (4.8-10.8) Red Blood Count 4.04 M/UL (4.70-6.10) L Hemoglobin 11.2 G/DL (14.2-18.0) L Hematocrit 34.0 % (42.0-52.0) L Mean Corpuscular Volume 84 FL (80-99) Mean Corpuscular Hemoglobin 27.8 PG (27.0-31.0) Mean Corpuscular Hemoglobin Concent 33.1 G/DL (32.0-36.0) Red Cell Distribution Width 19.0 % (11.6-14.8) H Platelet Count 339 K/UL (150-450) Mean Platelet Volume 6.9 FL (6.5-10.1) Neutrophils (%) (Auto) 63.0 % (45.0-75.0) Lymphocytes (%) (Auto) 23.6 % (20.0-45.0) Monocytes (%) (Auto) 8.6 % (1.0-10.0) Eosinophils (%) (Auto) 4.3 % (0.0-3.0) H Basophils (%) (Auto) 0.6 % (0.0-2.0) Sodium Level 138 mEQ/L (135-145) Potassium Level 3.9 mEQ/L (3.4-4.9) Chloride Level 103 mEQ/L (98-107) Carbon Dioxide Level 25 mEQ/L (20-30) Anion Gap 10 (5-15) Blood Urea Nitrogen 13 mg/dL (7-23) Creatinine 1.3 mg/dL (0.7-1.2) H Estimat Glomerular Filtration Rate > 60 mL/min (>60) Glucose Level 81 mg/dL (74-106) Calcium Level 8.8 mg/dL (8.6-10.2) Phosphorus Level 4.1 mg/dL (2.5-4.8) Magnesium Level 1.9 mg/dL (1.7-2.5) Total Bilirubin 0.3 mg/dL (0.0-1.2) Aspartate Amino Transf (AST/SGOT) 20 U/L (5-40) Alanine Aminotransferase (ALT/SGPT) 14 U/L (3-41) Alkaline Phosphatase 61 U/L (40-129) Total Protein 6.4 g/dL (6.6-8.7) L Albumin 3.1 g/dL (3.5-5.2) L Globulin 3.3 g/dL Albumin/Globulin Ratio 0.9 (1.0-2.7) L LOLA LO M.D. Jan 18, 2017 21:25
--- NOTE | 2017-01-20 14:38 | Discharge Summary ---
Discharge Summary Hospital Course Date of Admission Jan 11, 2017 at 03:28 Date of Discharge Jan 18, 2017 at 17:41 Admitting Diagnosis perforated ulcer HPI Chan Hampton is a 61 year old male who was admitted on Jan 11, 2017 at 03:28 for Perforated Ulcer Hospital Course [id number] Discharge Discharge Disposition Patient was discharged to Home Discharge Diagnoses: Karely Roth NP Jan 20, 2017 14:38
--- NOTE | 2017-01-21 | Discharge Summary 2 SIG ---
DATE OF ADMISSION: 01/11/2017 DATE OF DISCHARGE: 01/18/2017 CONSULTANTS: 1. Sarika Morris M.D. 2. Jacob Umanzor M.D. 3. Thee Bergeron M.D. BRIEF HOSPITAL COURSE: The patient is a 61-year-old male with history of esophagitis and duodenal ulcer with cocaine abuse, presented to ED complaining of acute onset of epigastric pain two hours prior to coming into ED. On evaluation, chest x-ray showed pneumoperitoneum, no evidence of acute cardiopulmonary disease. CT of the abdomen and pelvis done showed pneumoperitoneum compatible with acute/recent bowel perforation, no evidence of overt bowel obstruction. Laboratories showed leukocytosis. Urine toxicology was positive for cocaine. Emergent surgical evaluation was done. Acute abdomen probably due to perforated ulcer. The patient was placed on NPO and underwent exploratory laparotomy with pyloroplasty and castillo patch. Postoperatively, the patient was admitted to med/surg. He was continued on NPO. NG tube was connected to low intermittent suction. He was continued on IV fluids and proton pump inhibitors b.i.d. He was given IV Zosyn. He was given pain management and was having low-grade fevers. On 01/15/2017, NG-tube was discontinued and was started on clear liquid. Diet was eventually advanced. On 01/17/2017, drains and santiago were removed. The patient was eventually discharged home. He was tolerating diet. FINAL DIAGNOSES: 1. Perforated abdominal viscus, secondary to perforated ulcer. 2. Severe protein-calorie malnutrition. 3. Cocaine abuse. 4. Duodenal ulcer with secondary bacterial peritonitis. 5. Status post exploratory laparotomy, pyloroplasty, and castillo patch. 6. Gastritis. 7. Anemia. 8. Nicotine dependency. 9. Cocaine abuse. DISPOSITION: The patient was discharged home. DISCHARGE MEDICATIONS: Refer to medication list. FOLLOWUP: The patient was advised to follow up with PMD. ACTIVITY: As tolerated. Briseyda Kessler M.D. I have been assigned to dictate discharge summary on this account and I was not involved in the patient's management. Karely Roth N.P. DR: Kathy JOB#: [id number] CC:
== END 2017-01-18 17:41 | disposition home or self-care (01) | DRG 223 ==
LOC: EMR 00:50 → EDBEDREQ 03:24 → 2E 03:28 → EDBEDREQTM 03:57 → EDBEDREQSVC 03:57 → EDBEDREQ 03:57 → 3E 16:58
PROC: 0DU907Z Supplement Duodenum with Autologous Tissue Substitute, Open Approach (ICD-10-PCS; 2017-01-11)
PROC: 0DU907Z Supplement Duodenum with Autologous Tissue Substitute, Open Approach (ICD-10-PCS; principal; 2017-01-11 05:00)
DX: K26.1 Acute duodenal ulcer with perforation (principal); E43 Unspecified severe protein-calorie malnutrition; K65.2 Spontaneous bacterial peritonitis; Z68.22 Body mass index [BMI] 22.0-22.9, adult; K21.9 Gastro-esophageal reflux disease without esophagitis; K29.70 Gastritis, unspecified, without bleeding; F14.10 Cocaine abuse, uncomplicated; D72.829 Elevated white blood cell count, unspecified; Z72.0 Tobacco use; D64.9 Anemia, unspecified; M43.17 Spondylolisthesis, lumbosacral region; M47.817 Spondylosis without myelopathy or radiculopathy, lumbosacral region
CPT/HCPCS: 36415; 71010; 74176; 80048; 80053; 80300; 80329; 81003; 82150; 83690; 83735; 84100; 84134; 85007; 85025; 85610; 85730; 86703; 93005; 94003; 94150; 94640; 94664; 94760; J2180; J2250; J2405; J2710; J2765; J7620

== ENCOUNTER 2020-06-27 07:54 | Emergency (ER) | payer MEDICAID, OTHER ==
[~2020-06-27] VITALS: Ht 175.3 cm; Wt 70.3 kg
[~2020-06-27 07:54] MED LIST changes: +DICYCLOMINE HCL10 MG PO
--- NOTE | 2020-06-27 08:28 | Emergency Room Report ---
History of Present Illness General Chief Complaint: Pain Present Illness HPI Patient is a 65-year-old male presents for increased right inguinal pain. Onset of symptoms approximately past 2 months. Denies any vomiting or diarrhea. Prior history of right inguinal hernia repair. Reports having previous surgery at [facility]. Denies any fever. Denies any bloody stools. Reports having persistent pain to the right inguinal area after procedure. Denies any increased testicular discomfort. Denies any urinary difficulty. Allergies: Coded Allergies: No Known Allergies (Unverified , 05/07/14) COVID-19 Screening Contact w/high risk pt: No Experienced COVID-19 symptoms?: No COVID-19 Testing performed DATA PROGRAMMER: No Patient History Past Medical History: see triage record Reviewed Nursing Documentation: PMH: Agreed; PSxH: Agreed Nursing Documentation-PMH Hx Cardiac Problems: No Hx Hypertension: Yes Hx Cancer: No Hx Gastrointestinal Problems: Yes - gastritis Hx Neurological Problems: No Review of Systems All Other Systems: negative except mentioned in HPI Physical Exam Vital Signs Date Time Temp Pulse Resp B/P (MAP) Pulse Ox O2 Delivery O2 Flow Rate FiO2 06/27/20 08:11 98.8 83 18 159/104 (122) 95 Room Air Sp02 EP Interpretation: reviewed, normal General Appearance: normal inspection, well appearing, no apparent distress, alert, GCS 15 Head: atraumatic ENT: normal ENT inspection, hearing grossly normal, normal voice Neck: normal inspection, full range of motion, supple, no bony tend Respiratory: normal inspection, lungs clear, normal breath sounds, no respiratory distress, no retraction, no wheezing Cardiovascular #1: regular rate, rhythm, no edema Gastrointestinal: normal inspection, normal bowel sounds, non tender, soft, no guarding, no hernia Genitourinary: no CVA tenderness, other - right inguinal area without any mass, fluctuance or erythema Musculoskeletal: normal inspection, back normal, normal range of motion Neurologic: alert, responsive, speech normal, normal inspection Psychiatric: normal inspection, judgement/insight normal, mood/affect normal Medical Decision Making Diagnostic Impression: Primary Impression: Inguinal pain Additional Impression: Cocaine abuse ER Course Patient presented for right inguinal pain. Differential diagnosis include was not limited to inguinal hernia, postoperative pain, kidney stone, among others. Because of complexity of patient's case laboratory tests and imaging studies were ordered. Patient's laboratory testing was essentially unremarkable other than urine drug screen positive for cocaine. CT imaging read by radiology showed no evidence of acute obstruction. Labs Test 06/27/20 08:40 06/27/20 09:36 White Blood Count 11.1 K/UL (4.8-10.8) Red Blood Count 4.75 M/UL (4.70-6.10) Hemoglobin 14.6 G/DL (14.2-18.0) Hematocrit 43.8 % (42.0-52.0) Mean Corpuscular Volume 92 FL (80-99) Mean Corpuscular Hemoglobin 30.8 PG (27.0-31.0) Mean Corpuscular Hemoglobin Concent 33.4 G/DL (32.0-36.0) Red Cell Distribution Width 13.1 % (11.6-14.8) Platelet Count 229 K/UL (150-450) Mean Platelet Volume 8.6 FL (6.5-10.1) Neutrophils (%) (Auto) 76.2 % (45.0-75.0) Lymphocytes (%) (Auto) 11.8 % (20.0-45.0) Monocytes (%) (Auto) 6.7 % (1.0-10.0) Eosinophils (%) (Auto) 2.5 % (0.0-3.0) Basophils (%) (Auto) 2.8 % (0.0-2.0) Sodium Level 142 MMOL/L (136-145) Potassium Level 4.0 MMOL/L (3.5-5.1) Chloride Level 109 MMOL/L (98-107) Carbon Dioxide Level 24 MMOL/L (21-32) Anion Gap 9 mmol/L (5-15) Blood Urea Nitrogen 14 mg/dL (7-18) Creatinine 0.9 MG/DL (0.55-1.30) Estimat Glomerular Filtration Rate > 60 mL/min (>60) Glucose Level 92 MG/DL (74-106) Calcium Level 8.8 MG/DL (8.5-10.1) Total Bilirubin 0.6 MG/DL (0.2-1.0) Aspartate Amino Transf (AST/SGOT) 14 U/L (15-37) Alanine Aminotransferase (ALT/SGPT) 22 U/L (12-78) Alkaline Phosphatase 134 U/L (46-116) Total Protein 7.7 G/DL (6.4-8.2) Albumin 3.5 G/DL (3.4-5.0) Globulin 4.2 g/dL Albumin/Globulin Ratio 0.8 (1.0-2.7) Lipase 380 U/L (73-393) Urine Color Pale yellow Urine Appearance Clear Urine pH 6 (4.5-8.0) Urine Specific [place] 1.015 (1.005-1.035) Urine Protein Negative (NEGATIVE) Urine Glucose (UA) Negative (NEGATIVE) Urine Ketones Negative (NEGATIVE) Urine Blood 1+ (NEGATIVE) Urine Nitrite Negative (NEGATIVE) Urine Bilirubin Negative (NEGATIVE) Urine Urobilinogen Normal MG/DL (0.0-1.0) Urine Leukocyte Esterase Negative (NEGATIVE) Urine RBC 0-2 /HPF (0 - 0) Urine WBC 0 /HPF (0 - 0) Urine Squamous Epithelial Cells None /LPF (NONE/OCC) Urine Bacteria Occasional /HPF (NONE) Urine Opiates Screen Negative (NEGATIVE) Urine Barbiturates Screen Negative (NEGATIVE) Phencyclidine (PCP) Screen Negative (NEGATIVE) Urine Amphetamines Screen Negative (NEGATIVE) Urine Benzodiazepines Screen Negative (NEGATIVE) Urine Cocaine Screen Positive (NEGATIVE) Urine Marijuana (THC) Screen Negative (NEGATIVE) Last Vital Signs Date Time Temp Pulse Resp B/P (MAP) Pulse Ox O2 Delivery O2 Flow Rate FiO2 06/27/20 08:11 98.8 83 18 159/104 (122) 95 Room Air Referrals: NON PHYSICIAN (PCP) Fam Plummer MD Jun 27, 2020 08:28
[2020-06-27] MEDS ORDERED: Omnipaque-300 100ml vial INJ PRN (08:30)
[2020-06-27] MEDS: Ketorolac 30mg Inj IV ONE (08:44)
[2020-06-27 08:57] LABS: BASOPHILS % (AUTO) 2.8 % (0.0-2.0); EOSINOPHILS % (AUTO) 2.5 % (0.0-3.0); HEMATOCRIT 43.8 % (42.0-52.0); HEMOGLOBIN 14.6 G/DL (14.2-18.0); LYMPHOCYTES % (AUTO) 11.8 % (20.0-45.0); MEAN CORPUSCULAR VOLUME 92 FL (80-99); MONOCYTES % (AUTO) 6.7 % (1.0-10.0); NEUTROPHILS % (AUTO) 76.2 % (45.0-75.0); PLATELET COUNT 229 K/UL (150-450); RED BLOOD COUNT 4.75 M/UL (4.70-6.10); RED CELL DISTRIBUTION WIDTH 13.1 % (11.6-14.8); WHITE BLOOD COUNT 11.1 K/UL (4.8-10.8)
[2020-06-27 09:00] VITALS: BP 166/99
[2020-06-27 09:04] LABS: ANION GAP 9 mmol/L (5-15); BLOOD UREA NITROGEN 14 mg/dL (7-18); CALCIUM 8.8 MG/DL (8.5-10.1); CARBON DIOXIDE 24 MMOL/L (21-32); CHLORIDE 109 MMOL/L (98-107); CREATININE 0.9 MG/DL (0.55-1.30); SODIUM 142 MMOL/L (136-145)
[2020-06-27 09:10] LABS: ALANINE AMINOTRANSFERASE 22 U/L (12-78); ALBUMIN 3.5 G/DL (3.4-5.0); ALBUMIN/GLOBULIN RATIO 0.8 (1.0-2.7); ALKALINE PHOSPHATASE 134 U/L (46-116); ASPARTATE AMINO TRANSFERASE 14 U/L (15-37); BILIRUBIN,TOTAL 0.6 MG/DL (0.2-1.0)
[2020-06-27 09:48] LABS: APPEARANCE,URINE CLEAR; BILIRUBIN, URINE NEGATIVE (NEGATIVE); COLOR,URINE PALE YELLOW; GLUCOSE, URINE (UA) NEGATIVE (NEGATIVE); KETONES,URINE NEGATIVE (NEGATIVE); LEUKOCYTE ESTERASE ,URINE NEGATIVE (NEGATIVE); NITRITE,URINE NEGATIVE (NEGATIVE); PH,URINE 6 (4.5-8.0); PROTEIN,URINE NEGATIVE (NEGATIVE); UROBILINOGEN,URINE NORMAL MG/DL (0.0-1.0)
[2020-06-27] MEDS: Dicyclomine HCl 10mg/5ml oral soln ORAL ONE (09:50)
[2020-06-27] MEDS: Lidocaine 2% Visc 15ml soln ORAL ONE (09:50)
--- NOTE | 2020-06-27 10:16 | Diagnostic Imaging Report ---
Clinical Indication: Increased right inguinal pain, history of right inguinal hernia repair Technique: No oral contrast utilized, per emergency room physician request IV administration nonionic contrast. Venous phase spiral acquisition obtained through the abdomen and pelvis. Multiplanar reconstructions were generated. Total dose length product 183 mGycm. CTDIvol(s) 3 mGy. Dose reduction achieved using automated exposure control Comparison: 01/24/2018 Findings: Lack of enteric contrast limits assessment of the GI tract. Mild soft tissue thickening within the right inguinal canal appears slightly more prominent than on the previous exam. However, there is no evidence of hernia. Lack of enteric contrast limits assessment of the GI tract. No evidence of diverticulosis or diverticulitis. The appendix is not definitely identified, but no findings to suggest acute appendicitis are evident. No small bowel distention. No free or loculated intraperitoneal gas or fluid is evident. The distal esophagus, stomach, duodenum are unremarkable. The liver demonstrates a septated cyst in segment 2, also evident previously. Other scattered subcentimeter low-attenuation lesions are too small to characterize but unchanged. The gallbladder, bile ducts, pancreas, spleen, adrenals, left kidney are unremarkable. Previously demonstrated small left renal cysts are not evident on the current exam. No retroperitoneal or mesenteric mass or adenopathy. No pelvic mass or adenopathy. The prostate is markedly enlarged, measures 6 cm transverse diameter. The right kidney demonstrates a questionable peripheral low-attenuation lesion with a high attenuation center in the interpolar region which measures approximately 12 mm diameter. This is not evident on the prior study, although a small cortical scar is evident in this area on the previous exam. Previously demonstrated right renal cysts are unchanged. The included lung bases demonstrate hyperinflation. There are posterior dependent atelectatic changes and scarring bilaterally. The heart is borderline enlarged. The bones demonstrate bilateral L5 spondylolysis, grade 2 L5 on S1 spondylolisthesis, and secondary degenerative change. This is evident previously as well. There are degenerative spondylosis changes elsewhere as well. Degenerative changes of both hips are again noted. Impression: Limited assessment of the GI tract, due to lack of enteric contrast administration No definite acute process Unusual appearing 12 mm right renal peripheral low-attenuation lesion with high attenuation center. This may represent a cyst with central hemorrhage, or could just represent cortical scar demonstrated on earlier CT scan exaggerated on the corticomedullary differentiation resulting from the timing of the current exam. Solid mass also possible. Recommend ultrasound for better characterization No evidence of inguinal hernia. There is mild asymmetric soft tissue thickening of the right inguinal canal structures there is a nonspecific finding, could represent mild inflammation or postsurgical changes Bilateral L5 spondylolysis, L5 on S1 spondylolisthesis, secondary to degenerative change, also previously reported Evidence of COPD, also previously reported Prostatomegaly Cardiomegaly Other findings as noted, including bilateral hip degenerative change, degenerative spondylosis, hepatic and renal cysts The CT scanner at [facility] is accredited by the [employer] and the scans are performed using protocols designed to limit radiation exposure to as low as reasonably achievable to attain images of sufficient resolution adequate for diagnostic evaluation.
[2020-06-27] MEDS ORDERED: BACTRIM DS TAB1 EAC1 ORAL (10:28)
[2020-06-27 11:06] VITALS: BP 150/89
== END 2020-06-27 11:06 | disposition home or self-care (01) ==
LOC: EMR 08:17
DX: R10.31 Right lower quadrant pain (principal); F14.10 Cocaine abuse, uncomplicated; I10 Essential (primary) hypertension; Z98.890 Other specified postprocedural states
CPT/HCPCS: 36415; 74177; 80053; 80307; 81003; 83690; 85025; 96374; J1885; Q9965; Z7502; 99284